=== PATIENT | female | born 1960 | race Caucasian/White ===

== ENCOUNTER → 2017-04-08 09:33 | Day surgery (SDC) | payer MEDICAID, SELFPAY ==
[2017-04-07 11:49] VITALS: BMI 49.9
[2017-04-08 09:52] LABS: Hematocrit 39.3 % (37-47); Hemoglobin 12.7 g/dl (12.0-15.0); Mean Corp Hgb Conc 32.3 g/gl (32-36); Mean Corpuscular Hgb 28.5 pg (27.0-32.0); Mean Corpuscular Volume 88.1 fL (81-99); Mean Platelet Vol. 9.6 fl (6.2-12.0); Platelet Count 257 K/mm3 (150-450); RBC Distribution Width CV 13.6 % (11.6-14.6); RBC Distribution Width SD 43.3 fl (35.1-43.9); Red Blood Count 4.46 M/mm3 (4.2-5.4); White Blood Count 9.5 K/mm3 (4.4-11.0)
[2017-04-08 09:53] LABS: Scan Indicated on CBC? Y/N NO
[2017-04-08 10:03] LABS: Anion Gap 9 (5-15); BUN 14 mg/dL (7-18); BUN/Creat Ratio 17.7 RATIO (10-20); Chloride 106 mmol/L (98-107); Creatinine, Serum 0.79 mg/dL (0.55-1.02); EST Glomerular Filtration Rate 80 mL/min (>60); Est Glom Filt Rate - Afr Amer 97 mL/min (>60); Glucose 162 mg/dL (70-110); Sodium Level 141 mmol/L (136-145)
--- NOTE | 2017-04-08 13:14 | OP.PCM_ITS ---
Problem List (1) S/P insertion of IVC (inferior vena caval) filter Status: Acute Report of Operation Date of Procedure: 04/08/17 Pre-Operative Diagnosis: Indwelling inferior vena cava Tulip filter Post-Operative Diagnosis: Non-retrievable inferior vena cava Tulip filter. Normal inferior venacavogram Surgery/Procedure Performed:: Inferior venacavogram with attempt at inferior vena cava filter removal. Attempted balloon angioplasty of inferior vena cava filter Description of Surgical Findings:: Timeout and informed consent was obtained. 57-year-old female was taken to the special procedures lab. She was placed upon the table. The right neck was sterilely prepped and draped. She received 50 mcg of fentanyl 1 mg of Versed is intravenous sedation. The right neck was sterilely prepped and draped. Under ultrasound guidance percent lidocaine was instilled. Then a micropuncture needle was inserted micropuncture wire inserted micropuncture sheath inserted 035 J-wire was inserted 5 Moldovan short sheath was inserted and 035 J-wire was used to place a 5 Moldovan universal flush catheter in the right common iliac. Using contrast and inferior venacavogram was obtained. This demonstrates a widely patent inferior vena cava. The tulip filter unfortunately appeared to be tilted. Based upon the inferior venacavogram is concerned that the hook was within the sidewall of the vessel. Over the J-wire the 5 Moldovan sheath was removed. An 11 Moldovan reached retrieval sheath was placed. Multiple attempts were utilized using right angle snares triple snares to retrieve the filter. I attempted to utilize a 5 Moldovan Kumpe cath to get a Glidewire alongside the edge of the filter and we utilized 12 mm Laurel balloons and millimeter Powerflex balloon. Despite multiple different attempts did not appear that the filter could be engaged in a fashion to release it from the sidewall. Further attempts with stairs suggested that the wires continuously bounced off the apex hook suggesting ingrowth. The patient became uncomfortable from lying on her back complaining of leg pain. At this point rather than pursuing more aggressive attempts at filter removal I have elected to leave the filter in place. The patient will be given future option to return to a tertiary center for attempt at removal with a Holter looping technique or biting forceps but I did not feel comfortable with those maneuvers today as the patient already been on the table for period of time Impression Normal inferior venacavogram with tilted tulip filter Failure of retrieval Lino Ruiz M.D., F.A.C.S.
== END ==
PROVIDERS: Family Provider Internal Medicine; PCP Internal Medicine; Visit Provider Surgery
DX: Z95.828 Presence of other vascular implants and grafts (principal); E11.9 Type 2 diabetes mellitus without complications; E78.5 Hyperlipidemia, unspecified; I10 Essential (primary) hypertension; D50.9 Iron deficiency anemia, unspecified; E66.01 Morbid (severe) obesity due to excess calories; Z68.43 Body mass index [BMI] 50.0-59.9, adult; Z85.038 Personal history of other malignant neoplasm of large intestine; Z86.711 Personal history of pulmonary embolism; Z79.82 Long term (current) use of aspirin; Z79.4 Long term (current) use of insulin; Z79.899 Other long term (current) drug therapy
CPT/HCPCS: 36415; 37193; 76937; 80048; 85027; 99152; 99153; C1773; J7040; Q9967; C1725; C1769; J2405

== ENCOUNTER 2018-08-04 13:16 | Emergency (ER) | payer MEDICAID, SELFPAY ==
[2018-08-04 13:17] VITALS: BP 140/75; PULSE 78; RESP 16; TEMP 36.8; O2SAT 96; BMI 54.7
--- NOTE | 2018-08-04 13:57 | CT_ITS ---
STUDY: CT BRAIN WITHOUT CONTRAST REASON FOR EXAM: Female, 58 years old. Right-sided head trauma following a fall. History of colon cancer. RADIATION DOSAGE (If Supplied By Facility): CTDIvol = ( 44.99 ) mGy, DLP = ( 762.36 ) mGycm TECHNIQUE: Transaxial CT imaging of the brain was performed without administration of intravenous contrast material. Individualized dose optimization techniques were used for this CT. COMPARISON: No relevant priors. FINDINGS: Moderate sized scalp hematoma overlying the right frontoparietal bone. There is hyperostosis frontalis internus. Normal size ventricles and extra-axial spaces for the patient's age. Normal white matter tracts of the cerebral hemispheres. There are small punctate calcifications of the basal ganglia which are seen in the aging brain as a normal variant. Normal brainstem. Normal cerebellum. There is no intracranial hemorrhage. There are no findings of an acute ischemic infarction. Atherosclerotic calcification of the cavernous portions of the internal carotid arteries. Minimal mucosal thickening of the maxillary sinuses bilaterally. CT/Brain/Head without Contrast IMPRESSION: Moderate sized scalp hematoma overlying the right frontoparietal bone. Electronically Signed: Ariel Quinteros, at 14:26 EDT , Service support ,
--- NOTE | 2018-08-04 15:24 | ED.VISSUMM ---
- ER Visit Summary Date of Service: 08/04/18 Chief Complaint: Head injury History of Present Illness: The patient is a 58 F who lost her balance and fell on the . She had intermittent headaches to continue. Today she had some bruising around her right eye. She did not lose consciousness. She has no vision changes or vomiting. Physical Examination: Vital signs unremarkable. Patient sitting upright in bed no acute distress. Head and neck examination reveals healing abrasion to the right frontal scalp. She is mild ecchymosis noted to the lateral canthus of the right eye. No orbital bone tenderness. Extraocular movements are fully intact. No C-spine tenderness. Heart is regular rate and rhythm. Normal sounds are clear. Neuro exam is unremarkable. Test Results: CT scan of the head shows moderate scalp hematoma overlying the right frontoparietal bone. Emergency Department Course and Treatment: Test results discussed with patient and at bedside. She will continue to use Tylenol for headache. Treatment Plan: [] Disposition: Discharge Impression: Closed head injury status post fall This note was generated with [employer] dictation software. It may contain incorrect words, spelling, and punctuation that were not noted in review of the chart prior to signing ED Disposition - Plan for ED Patient: Disposition: Home or Assisted Living Instructions: ED Head Injury Closed Referrals: Radha Alcala MD [Primary Care Provider] - 1 Week if not improving
[2018-08-04 15:36] VITALS: PULSE 79; RESP 16
== END 2018-08-04 15:37 | disposition home or self-care (01) ==
PROVIDERS: Emergency Provider Emergency Medicine; Family Provider Internal Medicine; PCP Internal Medicine
DX: S09.90XA Unspecified injury of head, initial encounter (principal); E11.9 Type 2 diabetes mellitus without complications; I10 Essential (primary) hypertension; Z85.038 Personal history of other malignant neoplasm of large intestine; Z79.4 Long term (current) use of insulin; Z79.82 Long term (current) use of aspirin; Z79.899 Other long term (current) drug therapy; W18.30XA Fall on same level, unspecified, initial encounter; Y93.89 Activity, other specified; Y92.89 Other specified places as the place of occurrence of the external cause; Y99.8 Other external cause status
CPT/HCPCS: 70450; 99282

== ENCOUNTER → 2020-05-09 05:12 | Outpatient (CLI) | payer MEDICAID, SELFPAY | PROVIDERS: PCP Internal Medicine; Visit Provider Surgery | DX: R69 Illness, unspecified (principal) ==

== ENCOUNTER 2020-05-10 06:02 | Day surgery (SDC) | payer MEDICAID, SELFPAY ==
[2020-05-10] VITALS (7 sets, daily range): BP systolic 90–142; BP diastolic 46–111; PULSE 63–71; RESP 16; TEMP 36.1–36.5; O2SAT 88–100; BMI 44.1
--- NOTE | 2020-05-10 | COLBX_PTH ---
PATIENT: AISHA MA LOC: EN U#:[id number] AGE/SX: 60/F ROOM: RE05/10/[address]: Dr. Lino Ruiz MD : 1960 BED: DIS: 05/10/2020 SPEC #: [id number] RECD: 05/10/20 12:36 STATUS: JOHN HAWLEY #: [id number] SARAH: 05/10/20 00:[address]: Lino Ruiz DEPT: SURGICAL PATHOLOGY RECD BY: Josh Bliss ENTERED: 05/10/20 12:36 SP TYPE: COLON BX OTHR DR: Dr. Radha Alcala MD Tissues: A - Ileum, NOS B - Transverse colon Procedures: Surgery Specimen Level IV HEADER OPERATION: Colonoscopy - open access (MOD) PRE-OP DIAGNOSIS: Screening TISSUE SUBMITTED: A - Polyp at ileocecal anastomosis hot snare, B - Biopsy of proximal transverse polyp MICROSCOPIC DIAGNOSIS A. Polyp at ileocecal anastomosis, biopsy: Consistent with fragments of inflammatory polyp. B. Proximal transverse colon polyp, biopsy: Fragments of colonic mucosa, no pathologic diagnosis. See comment. Sunny 05/13/2020 COMMENT Please make reference to previous specimen ([id number]) right colon, hemicolectomy with diagnosis of invasive poorly differentiated adenocarcinoma. MICROSCOPIC DESCRIPTION Slides are reviewed. GROSS DESCRIPTION A - Received in fixative is one container labeled with the patient's name and designated polyp at ileocecal anastomosis. The specimen consists of multiple irregular fragments of light olvera soft tissue that in aggregate measure 1 x 1 x 0.4 cm. The specimen is totally submitted in one cassette. B - Received in fixative is one container labeled with the patient's name and designated biopsy of proximal transverse polyp. The specimen consists of multiple irregular fragments of light olvera soft tissue that in aggregate measure 0.6 x 0.2 x 0.1 cm. The specimen is totally submitted in one cassette. / ANDERSON:dimitry 05/10/20 TC:5 [facility]: [id number] x2
--- NOTE | 2020-05-10 06:14 | PCM.HP.STD ---
Problem List (1) History of colon cancer Status: Chronic History of Present Illness Date of Admission: 05/10/20 The patient is a 60 year old F who has a personal history of right colon cancer status post right colectomy in 1998. Her most recent colonoscopy was 2016. She denies chest pain shortness of breath unexpected weight loss. No abdominal pain. She denies bright red blood per rectum or melena. In February her had COVID-19. He is still resolving as he also has COPD. She states that she did not contract it. She otherwise feels well. She does have a previous history of pulmonary embolism. She has an indwelling inferior vena cava filter. It is a Tulip filter and in 2018 I was unable to retrieve it. She was recommended to have tertiary referral. Past Medical History Past Medical History (Chronic Problems): Chronic Problems (Last Reviewed 03/22/17 @ 13:07 by Shanti Fuentes) Septic arthritis of wrist, right (Chronic) antibiotics through 09/17/16 Chronic pain (Chronic) due to osteoarthritis Iron deficiency anemia (Chronic) History of colon cancer (Chronic) Morbid obesity with BMI of 50.0-59.9, adult (Chronic) Diabetes mellitus, type II (Chronic) Hyperlipidemia (Chronic) Hypertension (Chronic) Medical History: Medical History (Last Reviewed 03/22/17 @ 13:07 by Shanti Fuentes) Hypokalemia (Acute) E87.6 etiology unknown Hypomagnesemia (Acute) E83.42 etiology unknown Septic arthritis of wrist, right (Chronic) M00.9 antibiotics through 09/17/16 Chronic pain (Chronic) G89.29 due to osteoarthritis Iron deficiency anemia (Chronic) D50.9 Elevated LFTs (Acute) R94.5 Acute kidney injury (Acute) N17.9 History of colon cancer (Chronic) Z85.038 Morbid obesity with BMI of 50.0-59.9, adult (Chronic) E66.01, Z68.43 Diabetes mellitus, type II (Chronic) E11.9 Hyperlipidemia (Chronic) E78.5 Hypertension (Chronic) I10 Pulmonary embolism I26.99 Allergies adhesive tape Allergy (Mild, Verified 05/10/20 06:11) rash Home Medications: Ambulatory Orders Medication Instructions Recorded Acetaminophen [Tylenol] 650 mg PO Q6H PRN 10/05/16 Aspirin [Aspirin, Baby] 81 mg PO DAILY 10/05/16 Cyanocobalamin (Vitamin B-12) 2,000 mcg PO DAILY 10/05/16 [Vitamin B12] Duloxetine HCl 60 mg PO DAILY 10/05/16 Ergocalciferol [Vitamin D] 50,000 unit PO Q7D 10/05/16 Ferrous Sulfate 325 mg PO BIDCM 10/05/16 Multivitamin [Daily Multiple 1 ea PO DAILY 10/05/16 Vitamin] Ondansetron HCl [Zofran] 4 mg PO Q8H PRN 10/05/16 Potassium Chloride 20 meq PO BID 10/05/16 Sennosides/Docusate Sodium 1 ea PO BID 10/05/16 [Senna-Docusate Sodium Tablet] metFORMIN (XR) [Glucophage Xr] 500 mg PO BID 10/05/16 hydrochlorothiazide 12.5 mg tablet 12.5 mg PO QDAY 03/22/17 Famotidine [Pepcid] 20 mg PO BID 05/03/20 Surgical History: Surgical History (Last Updated 03/22/17 @ 13:07 by Shanti Fuentes) S/P insertion of IVC (inferior vena caval) filter (Acute) Z95.828 S/P cholecystectomy (Acute) Z90.49 S/P colonoscopy (Acute) Z98.890 History of incisional hernia repair (Acute) Z98.890, Z87.19 S/P colectomy (Acute) Z90.49 S/P repair of ventral hernia (Acute) Z98.890, Z87.19 Status post knee replacement (Acute) Z96.659 Surgical History: cholecystectomy, - - Partial colectomy. 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 Smoking Status: Never smoker Tobacco Use: Non-smoker - *Family History Maternal Family History: Family History (Last Updated 03/22/17 @ 13:10 by Shanti Fuentes) Mother Diabetes CAD (coronary artery disease) Father Heart disease Diabetes History Items: Heart Disease, Hypertension Paternal Family History: Family History (Last Updated 03/22/17 @ 13:10 by Shanti Fuentes) Mother Diabetes CAD (coronary artery disease) Father Heart disease Diabetes History Items: Heart Disease, Hypertension Review of Systems Constitutional: Denies: Fever HEENT: Denies: Difficulty Swallowing Cardiovascular: Denies: Chest Pain Respiratory: Denies: Cough, Shortness of Breath Gastrointestinal: Denies: Abdominal Pain, Melena Endocrine: Denies: Change in Body Habitus VTE Information - Inpt Only VTE Present on Admission: No - Physical Exam Vitals/I&O's: Body Mass Index (BMI) 54.7 Finger Stick Blood Glucose 203 General: Alert, Oriented x3, Cooperative, No apparent distress HEENT: Atraumatic Oral: Moist Mucosa Lungs: Clear to auscultation, Normal air movement Cardiovascular: Regular rate, Regular Rhythm Abdomen: Soft, Non Tender Extremities: No Calf Tenderness Psych/Mental Status: Normal Affect Microbiology Past 72 Hours 05/09/20 10:30 Interface Orders SARS-CoV-2 Antigen (Rapid) - Final Assessment/Plan All Active Problems (Last Reviewed 03/22/17 @ 13:07 by Shanti Fuentes) S/P insertion of IVC (inferior vena caval) filter (Acute) S/P cholecystectomy (Acute) S/P colonoscopy (Acute) History of incisional hernia repair (Acute) S/P colectomy (Acute) S/P repair of ventral hernia (Acute) Status post knee replacement (Acute) Hypokalemia (Acute) Hypomagnesemia (Acute) Elevated LFTs (Acute) Right hand pain (Acute) Acute kidney injury (Acute) Sepsis (Acute) Plan to proceed with a colonoscopy with possible biopsy or polypectomy as indicated. She is aware of the technique, benefit, risk, alternatives. She has had an opportunity to ask and have questions answered. She presents via open access today. We will proceed as noted. Lino Ruiz M.D., F.A.C.S. Procedure Criteria Procedure Type: Elective COVID Risk Discussion: The surgeon/proceduralist and patient have discussed in detail the risk of exposure to and/or potential harm posed by the COVID-19 virus with having a surgery/procedure at this time versus the risk of delaying the surgery/procedure. It is not possible to know either the risk of delaying the surgery or procedure or chance of getting an infection with perfect accuracy, but a joint decision was made between the patient and the surgeon/proceduralist to proceed at this time with the scheduled surgery/procedure as indicated on the consent form.
[2020-05-10] MEDS: Lactated Ringers 1,000 ML 100 ML IV (06:29)
[2020-05-10 06:35] LABS: Bedside Glucose 125 mg/dL (70-110)
--- NOTE | 2020-05-10 07:27 | OP.CCLET_ITS ---
05/10/2020 Radha Alcala [address] [id number] Re : Colonoscopy procedure for Day Lo Dear Dr. Alcala This procedure was performed on Sunday, May 10, 2020. My impressions and recommendations are as follows: Impressions : - Hemorrhoids found on perianal exam. - One polyp at the anastomosis, removed with a hot snare. Resected and retrieved. - One 5 mm polyp in the proximal transverse colon, removed with a cold biopsy forceps. Resected and retrieved. - Diverticulosis in the sigmoid colon. Recommendations : - Discharge patient to home. - Resume previous diet. - Continue present medications. - Repeat colonoscopy in 5 years for surveillance based on pathology results. - Telephone my office for pathology results in 1 week. My findings are described in the full procedure note, which is enclosed. If I can be of further assistance, please feel free to contact me at Doctor phone number(s): Work: . Sincerely, Lino Ruiz MD 05/10/2020 7:26:48 AM This report has been signed electronically.
--- NOTE | 2020-05-10 07:27 | OP.COLON_ITS ---
Patient Name: Day Lo Procedure Date: 05/10/2020 6:56 AM Date of : 1960 Age: 60 Procedure: Colonoscopy Indications: High risk colon cancer surveillance: Personal history of colon cancer Providers: Lino Ruiz MD Referring MD: Radha Alcala Medicines: Midazolam 3.5 mg IV, Meperidine 100 mg IV Patient Profile: Last Colonoscopy: more than 3 years ago. Complications: No immediate complications. Procedure: Pre-Anesthesia Assessment: - Prior to the procedure, a History and Physical was performed, and patient medications and allergies were reviewed. The patient's tolerance of previous anesthesia was also reviewed. The risks and benefits of the procedure and the sedation options and risks were discussed with the patient. All questions were answered, and informed consent was obtained. Prior Anticoagulants: The patient has taken aspirin. ASA Grade Assessment: II - A patient with mild systemic disease. After reviewing the risks and benefits, the patient was deemed in satisfactory condition to undergo the procedure. After I obtained informed consent, the scope was passed under direct vision. Throughout the procedure, the patient's blood pressure, pulse, and oxygen saturations were monitored continuously. The colonoscope was introduced through the anus and advanced to the ileocolonic anastomosis. The colonoscopy was performed without difficulty. The patient tolerated the procedure well. The quality of the bowel preparation was good. Ileocolonic anastomosis were photographed. Moderate Sedation: Moderate (conscious) sedation was personally administered by the endoscopist. The following parameters were monitored: oxygen saturation, heart rate, blood pressure, and response to care. Total physician intraservice time was 18 minutes. Scope In: 7:03:40 AM Scope Withdrawal Time 0 hours 14 minutes 32 seconds Scope Out: 7:20:59 AM Total Procedure Duration Time 0 hours 17 minutes 19 seconds Findings: Hemorrhoids were found on perianal exam. A polyp was found in the anastomosis. The polyp was sessile. The polyp was removed with a hot snare. Resection and retrieval were complete. A 5 mm polyp was found in the proximal transverse colon. The polyp was sessile. The polyp was removed with a cold biopsy forceps. Resection and retrieval were complete. Scattered diverticula were found in the sigmoid colon. Impression: - Hemorrhoids found on perianal exam. - One polyp at the anastomosis, removed with a hot snare. Resected and retrieved. - One 5 mm polyp in the proximal transverse colon, removed with a cold biopsy forceps. Resected and retrieved. - Diverticulosis in the sigmoid colon. Recommendation: - Discharge patient to home. - Resume previous diet. - Continue present medications. - Repeat colonoscopy in 5 years for surveillance based on pathology results. - Telephone my office for pathology results in 1 week. Procedure Code(s): --- Professional --- 77867, Colonoscopy, flexible; with removal of tumor(s), polyp(s), or other lesion(s) by snare technique 91322, 59, Colonoscopy, flexible; with biopsy, single or multiple 83857, 59, Moderate sedation services provided by the same physician or other qualified health healthcare network pricing consultant performing the diagnostic or therapeutic service that the sedation supports, requiring the presence of an independent trained observer to assist in the monitoring of the patient's level of consciousness and physiological status; initial 15 minutes of intraservice time, patient age 5 years or older Diagnosis Code(s): --- Professional --- Z85.038, Personal history of other malignant neoplasm of large intestine K64.9, Unspecified hemorrhoids D12.6, Benign neoplasm of colon, unspecified D12.3, Benign neoplasm of transverse colon (hepatic flexure or splenic flexure) K57.30, Diverticulosis of large intestine without perforation or abscess without bleeding CPT copyright 2017 [employer]. All rights reserved. The codes documented in this report are preliminary and upon drawing tender review may be revised to meet current compliance requirements. Lino Ruiz MD 05/10/2020 7:26:48 AM This report has been signed electronically. Number of Addenda: 0 Note Initiated On: 05/10/2020 6:56 AM
== END 2020-05-10 07:59 | disposition home or self-care (01) ==
LOC: EN 06:03 → AC 06:04
PROVIDERS: PCP Internal Medicine; Referring Provider Internal Medicine; Visit Provider Surgery
PROC: 0DJD8ZZ Inspection of Lower Intestinal Tract, Via Natural or Artificial Opening Endoscopic (ICD-10-PCS; CPT 45378; principal; 2020-05-10 06:55)
DX: K57.30 Diverticulosis of large intestine without perforation or abscess without bleeding (principal); K63.5 Polyp of colon; K64.9 Unspecified hemorrhoids; Z85.038 Personal history of other malignant neoplasm of large intestine; M19.90 Unspecified osteoarthritis, unspecified site; E11.9 Type 2 diabetes mellitus without complications; E66.01 Morbid (severe) obesity due to excess calories; E78.5 Hyperlipidemia, unspecified; I10 Essential (primary) hypertension; Z68.43 Body mass index [BMI] 50.0-59.9, adult; Z90.49 Acquired absence of other specified parts of digestive tract; Z79.84 Long term (current) use of oral hypoglycemic drugs; Z79.899 Other long term (current) drug therapy; Z86.711 Personal history of pulmonary embolism; Z20.822 Contact with and (suspected) exposure to COVID-19
CPT/HCPCS: 45380; 82962; 87426; 88305; 99152; 99153; C9803; J7120

== ENCOUNTER 2020-05-14 18:12 | Observation (INO) | payer MEDICAID, SELFPAY ==
[2020-05-14 13:28] VITALS: BMI 44.1
[2020-05-14 14:46] LABS: Absolute Lymphocyte Count 2.28 X10^3/uL (0.83-4.51); Basophil# 0.04 X10^3/uL; Basophil% 0.4 % (0-1); Eosinophil# 0.14 X10^3/uL; Eosinophils% 1.6 % (0-5); Hematocrit 32.3 % (37-47); Hemoglobin 10.4 g/dL (12.0-15.0); Lymphocyte # 2.28 X10^3/ul (4.0); Lymphocyte % 25.2 % (19-41); Mean Corp Hgb Conc 32.2 g/dL (32-36); Mean Corpuscular Hgb 28.3 pg (27.0-32.0); Mean Platelet Vol. 9.5 fl (6.2-12.0); Monocyte# 0.49 X10^3/uL; Monocyte% 5.4 % (0-10); NRBC Flagged by Analyzer 0 % (0-5); Neutrophil # 6.03 X10^3/uL (2.7-7.7); Neutrophil % 66.8 % (47-70); Platelet Count 268 K/mm3 (150-450); RBC Distribution Width CV 14.3 % (11.6-14.6); RBC Distribution Width SD 45.6 fl (35.1-43.9); Red Blood Count 3.67 M/mm3 (4.2-5.4)
--- NOTE | 2020-05-14 17:02 | PCM.HP.BLA ---
Problem List (1) Lower GI bleed Status: Acute History and Physical Date of Admission: 05/14/20 [facility] [address] [place] [address] OFFICE VISIT Date of Service: 05/14/20 MR#:[id number] Name: AISHA OTT Rep #:[id number] : 1960 Provider: SHARYN Dave Age/Sex: 60/F Location:[facility] Status: Signed Intake Vital Signs 05/14/20 Weight: 264 lb 05/14/20 BP 108/70 05/14/20 Blood Pressure Location Rt brachial 05/14/20 Position Sitting 05/14/20 Respiration 18 05/14/20 Pulse 81 05/14/20 Pulse Source Monitor 05/14/20 Pulse Oximetry (%) 100 05/14/20 Oxygen Delivery Method room air Intake Visit Reasons: C-Scope -RC 05/10 New rectal bleeding & dizziness Chief Complaint: rectal bleeding s/p c-scope Database Administration Associate Required: No Is patient in pain?: No Allergies adhesive tape Allergy (Mild, Verified 05/14/20 15:11) rash Medications Acetaminophen [Tylenol] 650 mg PO Q6H PRN 10/05/16 [History Confirmed 05/14/20] Aspirin [Aspirin, Baby] 81 mg PO DAILY 10/05/16 [History Confirmed 05/14/20] Cyanocobalamin (Vitamin B-12) [Vitamin B12] 2,000 mcg PO DAILY 10/05/16 [History Confirmed 05/14/20] Duloxetine HCl 60 mg PO DAILY 10/05/16 [History Confirmed 05/14/20] Ergocalciferol [Vitamin D] 50,000 unit PO Q7D 10/05/16 [History Confirmed 05/14/20] Ferrous Sulfate 325 mg PO BIDCM 10/05/16 [History Confirmed 05/14/20] Multivitamin [Daily Multiple Vitamin] 1 ea PO DAILY 10/05/16 [History Confirmed 05/14/20] Ondansetron HCl [Zofran] 4 mg PO Q8H PRN 10/05/16 [History Confirmed 05/14/20] Potassium Chloride 20 meq PO BID 10/05/16 [History Confirmed 05/14/20] Sennosides/Docusate Sodium [Senna-Docusate Sodium Tablet] 1 ea PO BID 10/05/16 [History Confirmed 05/14/20] metFORMIN (XR) [Glucophage Xr] 500 mg PO BID 10/05/16 [History Confirmed 05/14/20] hydrochlorothiazide 12.5 mg tablet 12.5 mg PO QDAY 03/22/17 [History Confirmed 05/14/20] Famotidine [Pepcid] 20 mg PO BID 05/03/20 [History Confirmed 05/14/20] [facility] Medical History Hypokalemia (Acute) Hypomagnesemia (Acute) Septic arthritis of wrist, right (Chronic) Chronic pain (Chronic) Iron deficiency anemia (Chronic) Elevated LFTs (Acute) Acute kidney injury (Acute) History of colon cancer (Chronic) Morbid obesity with BMI of 50.0-59.9, adult (Chronic) Diabetes mellitus, type II (Chronic) Hyperlipidemia (Chronic) Hypertension (Chronic) Pulmonary embolism (Acute) Surgical History S/P insertion of IVC (inferior vena caval) filter (Acute) S/P cholecystectomy (Acute) S/P colonoscopy (Acute) History of incisional hernia repair (Acute) S/P colectomy (Acute) S/P repair of ventral hernia (Acute) Status post knee replacement (Acute) Family History Mother Diabetes CAD (coronary artery disease) Father Heart disease Diabetes Social History (Updated 05/14/20 @ 16:44 by Anna ELDRIDGE, PA-C) Smoking Status: Never smoker alcohol intake: never HPI Surgical H&P: Yes HPI: AISHA OTT, is a 60 F who presents to the office today for rectal bleeding status post colonoscopy. Patient had a colonoscopy with Dr. Ruiz on Wednesday05/10/20. Patient had a polyp removed with hot snare at ileocolonic anastomosis which was inflamed. She was also noted to have a polyp in the proximal transverse colon. Removed with a cold biopsy forceps. There were internal hemorrhoids noted. Patient stated over the weekend she was having normal bowel movements. She noted this morning bleeding when she tried to have a bowel movement. Patient stated she felt the urge to have a bowel movement and each time there were blood and clots in the toilet. She is unsure if there were ever any stool output. She noted a strong odor from the bleeding in the toilet. She notes usually having looser stools secondary to taking Miralax and a stool softener. She noted feeling dizzy this morning and fatigued. She tried to eat which did not help. She contacted our office for further recommendations. Pathology from the polyps returned benign. CBC was obtained and notable for Hgb 10.4, Hct 32.3, and Plt 268 ROS General General: Yes weight change and colon cancer; no appetite, fatigue, breast cancer or weakness HEENT HEENT: No difficulty swallowing, eye injury, eye surgery, swollen glands or hoarseness Endo Endocrine: Yes diabetes mellitus; no thyroid disease, thyroid cancer, Hair loss, heat intolerance or cold intolerance Skin Skin: No rash or changing moles Breast Breast: No left breast lump, right breast lump, nipple discharge, breast pain, abnormal mammogram, abnormal US or breast enlargement Musc Musculoskeletal: Yes back problems, arthritis and joint pain; no rheumatoid arthritis or gout Cardio Cardiovascular: Yes high blood pressure; no murmur, pacemaker, heart disease, atrial fibrillation, heart attack, heart stent, palpitations, shortness of breat with exertion or chest pain Psych Psychiatric: No depression, anxiety or hearing voices Resp Respiratory: No shortness of breath, No sleep apnea, No cough, No COPD, No asthma, No emphysema, No wheezing Gastro Gastrointestinal: No abdominal pain, No nausea or vomiting, No diarrhea, No constipation, No blood in stool, No acid reflux, No hemorrhoids, No ulcers, No gallbladder problem, No black,tarry stools Remigio Hematologic: No blood thinners, No blood disorders, Yes bleeding, No anemia, Yes blood clots Neuro Neurologic: No system reviewed and no additional complaints, except as docu, No as per HPI, No abnormal walking, No abnormal hearing, No abnormal movements, No abnormal speech, No behavioral changes, No burning sensations, No confusion, No seizure-like activity, No unsteadiness, No dizziness, No localized weakness, No frequent falls, No headache(s), No lack of coordination, No loss of vision, No memory loss, No numbness, No other visual disturbances, No radiating pain, No restless legs, No sensory deficit, No fainting, No tingling, No tremor(s), No weakness, No other Exam Const General: cooperative, healthy appearing, comfortable, no acute distress HENMT Head: normal to inspection Eyes General: appearance normal, both eyes and all related structures Neck Neck: normal visual inspection Neck mass: No Chest Breast Palpation: No nipple discharge Resp Effort & Inspection: normal respiratory effort Auscultation: clear to auscultation bilaterally Cardio Rate: regular rate Rhythm: regular rhythm Heart Sounds: no murmurs GI Inspection: normal to inspection, obesity Rectal Exam: visual inspection normal (small amount of darker red blood noted internally), hemorrhoids Skin General: no rashes or lesions noted Neuro General: no focal motor deficits, CN's II-XI intact bilaterally Extrem General: normal to inspection Psych Appearance: grossly normal Affect: normal affect Assessment & Plan Problems 1. Lower GI bleed K92.2 Plan: Dr. Ruiz has also evaluated this patient. Patient will be direct admitted to PCU. Patient will be bowel prepped with Golytely. NPO after midnight. CBC and BMP tomorrow morning at 0500. Colonoscopy with MAC scheduled for 0630 tomorrow morning with possible epinephrine injection or clip placement pending findings. Procedure details, risks and benefits have been explained. Patient and her have had the opportunity to ask and have questions answered. Patient verbally understands and agrees with the plan. She will go home to gather her things and return for admission as patient lives in [place]. It is of note, patient was COVID tested on 05/09/20 for previous colonoscopy procedure. Result was negative. Coding Level of Care Code Off vis,est,level 4 Diagnoses Lower GI bleed K92.2 05/14/20 1644 <Electronically signed by Anna ELDRIDGE PA-C> Date Anna ELDRIDGE PA-C OBSV E&M: 18473 Observ/hosp same date L1 - Charge placed for patient as an outpatient in office for admission
[2020-05-14 17:58] VITALS: BMI 44.9
[2020-05-14 18:01] VITALS: BP 125/63; PULSE 83; RESP 18; TEMP 36.6; O2SAT 100
[2020-05-14 18:07] VITALS: BMI 44.9
[2020-05-14 18:14] VITALS: PULSE 65
[2020-05-14] MEDS: 0.9% Saline Lock 10 ML Syringe IV (18:38)
[2020-05-14 18:52] LABS: Absolute Lymphocyte Count 1.75 X10^3/uL (0.83-4.51); Absolute Neutrophil Count 5.7 X10^3/uL (2.0-7.7); Basophil# 0.02 X10^3/uL; Basophil% 0.3 % (0-1); Eosinophil# 0.08 X10^3/uL; Hematocrit 29.4 % (37-47); Hemoglobin 9.3 g/dL (12.0-15.0); Lymphocyte # 1.75 X10^3/ul (4.0); Lymphocyte % 21.9 % (19-41); Mean Corp Hgb Conc 31.6 g/dL (32-36); Mean Corpuscular Hgb 28.3 pg (27.0-32.0); Mean Corpuscular Volume 89.4 fL (81-99); Mean Platelet Vol. 9.6 fl (6.2-12.0); NRBC Flagged by Analyzer 0 % (0-5); Neutrophil % 71.3 % (47-70); Platelet Count 247 K/mm3 (150-450); RBC Distribution Width CV 14.3 % (11.6-14.6); Red Blood Count 3.29 M/mm3 (4.2-5.4)
[2020-05-14] MEDS: 0.9% Normal Saline 1,000 ML 50 ML IV (18:52)
[2020-05-14 19:00] VITALS: PULSE 67
[2020-05-14 19:04] LABS: Anion Gap 5 (5-15); BUN 22 mg/dL (7-18); BUN/Creat Ratio 30.3 RATIO (10-20); Calcium,Total 8.4 mg/dL (8.5-10.1); Chloride 112 mmol/L (98-107); Creatinine, Serum 0.73 mg/dL (0.55-1.02); EST Glomerular Filtration Rate 87 mL/min (>60); Est Glom Filt Rate - Afr Amer 105 mL/min (>60); Estimated Creatinine Clearance 73.74 ml/min; Glucose 165 mg/dL (74-106); Potassium 3.8 mmol/L (3.5-5.1); Sodium Level 143 mmol/L (136-145)
[2020-05-14] MEDS: Electrolyte Solution/Peg's 4000 ML PO (19:41)
[2020-05-14 21:08] VITALS: BMI 44.9
[2020-05-14 22:00] VITALS: O2SAT 100
[2020-05-14 22:44] LABS: Xtra Tube EP Lab EXTRA TUBE
[2020-05-14] MEDS: Ondansetron 4 MG/2 ML Vial IV (22:50)
[2020-05-14 23:00] VITALS: BP 103/60; PULSE 67; RESP 16; TEMP 36.5; O2SAT 100
[2020-05-14 23:05] VITALS: PULSE 67
[2020-05-14 23:05] LABS: Bedside Glucose 153 mg/dL (70-110)
[2020-05-15] VITALS (13 sets, daily range): BP systolic 94–110; BP diastolic 47–59; PULSE 63–85; RESP 16–18; TEMP 36.2–36.6; O2SAT 96–100; BMI 44.9
[2020-05-15 04:39] LABS: Absolute Lymphocyte Count 3.43 X10^3/uL (0.83-4.51); Absolute Neutrophil Count 4.1 X10^3/uL (2.0-7.7); Basophil# 0.03 X10^3/uL; Basophil% 0.4 % (0-1); Eosinophil# 0.09 X10^3/uL; Eosinophils% 1.1 % (0-5); Hematocrit 26.5 % (37-47); Hemoglobin 8.3 g/dL (12.0-15.0); Lymphocyte # 3.43 X10^3/ul (4.0); Lymphocyte % 42.2 % (19-41); Mean Corp Hgb Conc 31.3 g/dL (32-36); Mean Corpuscular Volume 89.5 fL (81-99); Mean Platelet Vol. 9.2 fl (6.2-12.0); Monocyte% 4.9 % (0-10); NRBC Flagged by Analyzer 0 % (0-5); Neutrophil # 4.14 X10^3/uL (2.7-7.7); Neutrophil % 50.9 % (47-70); Platelet Count 227 K/mm3 (150-450); RBC Distribution Width CV 14.6 % (11.6-14.6); RBC Distribution Width SD 47.1 fl (35.1-43.9); Red Blood Count 2.96 M/mm3 (4.2-5.4); White Blood Count 8.1 K/mm3 (4.4-11.0)
[2020-05-15 04:49] LABS: International Normalized Ratio 1.2; Prothrombin Time (Protime)PT. 14.2 SECONDS (11.7-14.9)
[2020-05-15 04:50] LABS: Partial Thromboplast Time 24.5 Seconds (24.1-36.2)
[2020-05-15 04:54] LABS: Anion Gap 5 (5-15); BUN 17 mg/dL (7-18); BUN/Creat Ratio 23.9 RATIO (10-20); Calcium,Total 8.3 mg/dL (8.5-10.1); Chloride 113 mmol/L (98-107); Creatinine, Serum 0.71 mg/dL (0.55-1.02); EST Glomerular Filtration Rate 89 mL/min (>60); Est Glom Filt Rate - Afr Amer 108 mL/min (>60); Estimated Creatinine Clearance 72.76 ml/min; Glucose 132 mg/dL (74-106); Potassium 3.6 mmol/L (3.5-5.1); Sodium Level 145 mmol/L (136-145)
--- NOTE | 2020-05-15 07:04 | OP.CCLET_ITS ---
05/15/2020 Radha Alcala [address] [id number] Re : Colonoscopy procedure for Day Wally Dear Dr. Alcala This procedure was performed on Friday, May 15, 2020. My impressions and recommendations are as follows: Impressions : - Preparation of the colon was poor because of bloody fluid - Hemorrhoids found on perianal exam. - Blood in the entire examined colon. - An area in the anastomosis successfully injected. - Two hemostatic clips were successfully placed at the previous polypectomy site, ileocolonic anastomotic area. - No specimens collected. Recommendations : - Return patient to [facility] for ongoing care. - Full liquid diet. - Continue present medications. - Repeat colonoscopy in 5 years for surveillance. My findings are described in the full procedure note, which is enclosed. If I can be of further assistance, please feel free to contact me at Doctor phone number(s): Work: . Sincerely, Lino Ruiz MD 05/15/2020 7:03:56 AM This report has been signed electronically.
--- NOTE | 2020-05-15 07:04 | OP.COLON_ITS ---
Patient Name: Day Lo Procedure Date: 05/15/2020 6:03 AM Date of : 1960 Age: 60 Procedure: Colonoscopy Indications: Rectal bleeding, Treatment of bleeding from polypectomy site Providers: Lino Ruiz MD Medicines: See the Anesthesia note for documentation of the administered medications Patient Profile: Last Colonoscopy: 1 week ago. Complications: No immediate complications. Procedure: Pre-Anesthesia Assessment: - Prior to the procedure, a History and Physical was performed, and patient medications and allergies were reviewed. The patient's tolerance of previous anesthesia was also reviewed. The risks and benefits of the procedure and the sedation options and risks were discussed with the patient. All questions were answered, and informed consent was obtained. Prior Anticoagulants: The patient has taken aspirin, last dose was 1 day prior to procedure. ASA Grade Assessment: III - A patient with severe systemic disease. After reviewing the risks and benefits, the patient was deemed in satisfactory condition to undergo the procedure. After I obtained informed consent, the scope was passed under direct vision. Throughout the procedure, the patient's blood pressure, pulse, and oxygen saturations were monitored continuously. The adult colonoscope was introduced through the anus and advanced to the ileocolonic anastomosis. The colonoscopy was performed without difficulty. The patient tolerated the procedure well. The quality of the bowel preparation was poor. Ileocolonic anastomosis were photographed. Scope In: 6:29:20 AM Scope Out: 6:44:02 AM Total Procedure Duration Time 0 hours 14 minutes 42 seconds Findings: Hemorrhoids were found on perianal exam. Red blood was found in the entire colon. An area at the anastomosis was successfully injected with 2 mL of a 1:10,000 solution of epinephrine for drug delivery. To stop active bleeding, two hemostatic clips were successfully placed. There was no bleeding at the end of the procedure. Impression: - Preparation of the colon was poor because of bloody fluid - Hemorrhoids found on perianal exam. - Blood in the entire examined colon. - An area in the anastomosis successfully injected. - Two hemostatic clips were successfully placed at the previous polypectomy site, ileocolonic anastomotic area. - No specimens collected. Recommendation: - Return patient to hospital [facility] for ongoing care. - Full liquid diet. - Continue present medications. - Repeat colonoscopy in 5 years for surveillance. Procedure Code(s): --- Professional --- 43706, Colonoscopy, flexible; with control of bleeding, any method Diagnosis Code(s): --- Professional --- K64.9, Unspecified hemorrhoids K92.2, Gastrointestinal hemorrhage, unspecified K62.5, Hemorrhage of anus and rectum K91.840, Postprocedural hemorrhage of a digestive system organ or structure following a digestive system procedure CPT copyright 2017 [employer]. All rights reserved. The codes documented in this report are preliminary and upon cellular equipment repairer review may be revised to meet current compliance requirements. Lino Ruiz MD 05/15/2020 7:03:56 AM This report has been signed electronically. Number of Addenda: 0 Note Initiated On: 05/15/2020 6:03 AM
--- NOTE | 2020-05-15 07:57 | PN_ITS ---
Progress Note Patient evaluated. Reviewed findings of the colonoscopy. was present in room also. Previous polypectomy site at the anastomosis appeared to be the area where the clots and blood were coming from. Dr. Ruiz injected epinephrine and placed 2 clips in the area. Discussed with patient that she may have a small amount of liquidy blood per rectum. Recommend iron supplementation twice a day as an outpatient for 3 weeks. Patient may eat rn patient services today and return to regular diet tomorrow. Start iron supplementation today. May be discharged after eating breakfast. Follow-up with our office in 1 week. Will obtain repeat CBC at that time. STROKE Vital Signs/Narrative: Vital Signs Temp Pulse Resp BP Pulse Ox 05/15/20 07:54 97.7 F L 71 18 110/48 L 96 05/15/20 07:05 69 16 106/55 L 100 05/15/20 07:00 69 16 100/55 L 100 05/15/20 06:55 66 16 102/56 L 100 05/15/20 06:50 97.6 F L 66 16 99/59 L 100 05/15/20 05:49 97.2 F L 63 16 94/56 L 97 05/15/20 04:32 97.8 F 66 16 109/57 L 96 05/15/20 04:30 96 05/15/20 04:22 97.8 F 66 16 109/57 L 96 Inpatient E&M: 05299 Subs Hosp L1 - No charge
[2020-05-15 08:01] LABS: Hemoglobin A1c 6.6 % (3.8-5.6)
[2020-05-15] MEDS: Potassium Chloride Oral Tablet 20 MEQ PO (08:05)
[2020-05-15] MEDS: hydroCHLOROthiazide 12.5mg 12.5 MG PO (08:06)
--- NOTE | 2020-05-15 08:13 | DCINST_ITS ---
Discharge Diet: Light diet - advance as tolerated Discharge Activity: Return to Normal Activity Additional Instructions: Please start to take 3 tablets daily of iron supplementation for 1 week. Allergies/Adverse Reactions: Allergies adhesive tape Allergy (Mild, Verified 05/14/20 15:11) rash Medications to take at Discharge Acetaminophen [Tylenol] 650 mg PO Q6H PRN 10/05/16 Aspirin [Aspirin, Baby] 81 mg PO DAILY 10/05/16 Cyanocobalamin (Vitamin B-12) [Vitamin B12] 2,000 mcg PO DAILY 10/05/16 Duloxetine HCl 60 mg PO DAILY 10/05/16 Ergocalciferol [Vitamin D] 50,000 unit PO Q7D 10/05/16 Multivitamin [Daily Multiple Vitamin] 1 ea PO DAILY 10/05/16 Ondansetron HCl [Zofran] 4 mg PO Q8H PRN 10/05/16 Sennosides/Docusate Sodium [Senna-Docusate Sodium Tablet] 1 ea PO BID 10/05/16 metFORMIN (XR) [Glucophage Xr] 500 mg PO BID 10/05/16 hydrochlorothiazide 12.5 mg tablet 12.5 mg PO QDAY 03/22/17 Famotidine [Pepcid] 20 mg PO BID 05/03/20 Atorvastatin Calcium [Lipitor] 20 mg PO QHS 05/14/20 Bupropion HCl [Bupropion HCl Sr] 100 mg PO BID 05/14/20 Mirabegron [Myrbetriq] 50 mg PO DAILY 05/14/20 Potassium Chloride 1 tab PO DAILY 05/14/20 Ferrous Sulfate 325 mg PO TIDCM 7 Days #0 05/15/20 Primary Care Physician: Radha Alcala MD [Primary Care Provider] - Test Results: Test results from this visit will be discussed in further detail at your follow- up appointment, if applicable. Please Follow Up With: Anna Dave, CHENTE-C - [phone] When: 1 week Proposed Discharge Date: 05/15/20
[2020-05-15 08:45] LABS: Bedside Glucose 147 mg/dL (70-110)
--- NOTE | 2020-05-15 10:10 | PHA.DC.MC ---
Pharmacy Service has performed discharge medication reconciliation and counseling for this patient. 1. FERROUS SULFATE 325MG PO TIDCM The patient's discharge medication list was reviewed for discrepancies and discrepancies were resolved. Home Medications Acetaminophen [Tylenol] 650 mg PO Q6H PRN 10/05/16 Aspirin [Aspirin, Baby] 81 mg PO DAILY 10/05/16 Cyanocobalamin (Vitamin B-12) [Vitamin B12] 2,000 mcg PO DAILY 10/05/16 Duloxetine HCl 60 mg PO DAILY 10/05/16 Ergocalciferol [Vitamin D] 50,000 unit PO Q7D 10/05/16 Multivitamin [Daily Multiple Vitamin] 1 ea PO DAILY 10/05/16 Ondansetron HCl [Zofran] 4 mg PO Q8H PRN 10/05/16 Sennosides/Docusate Sodium [Senna-Docusate Sodium Tablet] 1 ea PO BID 10/05/16 metFORMIN (XR) [Glucophage Xr] 500 mg PO BID 10/05/16 hydrochlorothiazide 12.5 mg tablet 12.5 mg PO QDAY 03/22/17 Famotidine [Pepcid] 20 mg PO BID 05/03/20 Atorvastatin Calcium [Lipitor] 20 mg PO QHS 05/14/20 Bupropion HCl [Bupropion HCl Sr] 100 mg PO BID 05/14/20 Mirabegron [Myrbetriq] 50 mg PO DAILY 05/14/20 Potassium Chloride 1 tab PO DAILY 05/14/20 Ferrous Sulfate 325 mg PO TIDCM 7 Days #0 05/15/20 The patient was counseled on the following discharge medications and changes in medications for homegoing were reviewed. The Reason for Use, instructions for use, and potential side effects were reviewed for all new medications. The patient's questions regarding all of their medications were answered. The patient was able to verbally demonstrate an understanding of their discharge medications.
[2020-05-15] MEDS: 0.9% Normal Saline (Pres. free 10 ML Vial (10:22)
[2020-05-15] MEDS: Epinephrine (1 mg/ml) 1 MG/ML VIAL (10:23)
== END 2020-05-15 09:22 | disposition home or self-care (01) ==
PROVIDERS: Anesthesiology; Physician Assistant; Admitting Provider Surgery; PCP Internal Medicine; Visit Provider Surgery
PROC: 0DJD8ZZ Inspection of Lower Intestinal Tract, Via Natural or Artificial Opening Endoscopic (ICD-10-PCS; CPT 45378; principal; 2020-05-15 06:25)
DX: K92.2 Gastrointestinal hemorrhage, unspecified (principal); E66.01 Morbid (severe) obesity due to excess calories; Z68.41 Body mass index [BMI] 40.0-44.9, adult; E78.5 Hyperlipidemia, unspecified; E11.9 Type 2 diabetes mellitus without complications; I10 Essential (primary) hypertension; D50.9 Iron deficiency anemia, unspecified; K91.840 Postprocedural hemorrhage of a digestive system organ or structure following a digestive system procedure; Z86.718 Personal history of other venous thrombosis and embolism; Z79.899 Other long term (current) drug therapy; Z79.82 Long term (current) use of aspirin; Z79.84 Long term (current) use of oral hypoglycemic drugs; Z85.038 Personal history of other malignant neoplasm of large intestine; K64.8 Other hemorrhoids
CPT/HCPCS: 45382; 36415; 80048; 82962; 83036; 85025; 85610; 85730; 86850; 86900; 86901; 86920; 86922; 96365; 96366; 96375; 99218; J7030; A4216; G0378; G0379; J2405; J3490

== ENCOUNTER → 2020-05-22 12:50 | Outpatient (CLI) | payer MEDICAID, SELFPAY ==
[2020-05-15 05:49] VITALS: BMI 44.9
[2020-05-22 13:01] LABS: Absolute Lymphocyte Count 3.19 X10^3/uL (0.83-4.51); Absolute Neutrophil Count 4.4 X10^3/uL (2.0-7.7); Basophil# 0.06 X10^3/uL; Basophil% 0.7 % (0-1); Eosinophils% 2.4 % (0-5); Hematocrit 26.3 % (37-47); Hemoglobin 8.1 g/dL (12.0-15.0); Lymphocyte # 3.19 X10^3/ul (4.0); Lymphocyte % 37.7 % (19-41); Mean Corp Hgb Conc 30.8 g/dL (32-36); Mean Corpuscular Hgb 28.2 pg (27.0-32.0); Mean Corpuscular Volume 91.6 fL (81-99); Mean Platelet Vol. 9.1 fl (6.2-12.0); Monocyte# 0.58 X10^3/uL; Monocyte% 6.8 % (0-10); NRBC Flagged by Analyzer 0 % (0-5); Neutrophil # 4.38 X10^3/uL (2.7-7.7); Neutrophil % 51.7 % (47-70); Platelet Count 353 K/mm3 (150-450); RBC Distribution Width CV 15.3 % (11.6-14.6); RBC Distribution Width SD 49.8 fl (35.1-43.9); Red Blood Count 2.87 M/mm3 (4.2-5.4); White Blood Count 8.5 K/mm3 (4.4-11.0)
== END ==
PROVIDERS: PCP Internal Medicine; Referring Provider Physician Assistant; Visit Provider Physician Assistant
DX: K92.2 Gastrointestinal hemorrhage, unspecified (principal)
CPT/HCPCS: 36415; 85025

== ENCOUNTER → 2020-06-05 12:48 | Outpatient (CLI) | payer MEDICAID, SELFPAY ==
[2020-05-15 05:49] VITALS: BMI 44.9
[2020-06-05 13:01] LABS: Hematocrit 33.9 % (37-47); Hemoglobin 10.5 g/dL (12.0-15.0); Mean Corpuscular Hgb 28.4 pg (27.0-32.0); Mean Corpuscular Volume 91.6 fL (81-99); Platelet Count 357 K/mm3 (150-450); RBC Distribution Width CV 16.2 % (11.6-14.6); White Blood Count 7.6 K/mm3 (4.4-11.0)
== END ==
PROVIDERS: PCP Internal Medicine; Referring Provider Physician Assistant; Visit Provider Physician Assistant
DX: D64.9 Anemia, unspecified (principal)
CPT/HCPCS: 36415; 85027

== ENCOUNTER 2020-07-29 14:24 | Emergency (ER) | payer MEDICAID, SELFPAY ==
[2020-05-15 05:49] VITALS: BMI 44.9
[2020-07-29 14:25] VITALS: BP 157/78; PULSE 65; TEMP 36.4; O2SAT 97; BMI 47.0
[2020-07-29 14:50] VITALS: O2SAT 97
[2020-07-29 14:52] VITALS: BP 128/66; PULSE 65; RESP 16; O2SAT 98
--- NOTE | 2020-07-29 14:54 | EKG12_ITS ---
Test Reason : COUGH Blood Pressure : / mmHG Vent. Rate : 058 BPM Atrial Rate : 058 BPM P-R Int : 174 ms QRS Dur : 082 ms QT Int : 428 ms P-R-T Axes : 052 -16 -17 degrees QTc Int : 420 ms Sinus bradycardia Otherwise normal ECG Confirmed by JARED ACOSTA, NANCI ([id number]), non linear editor GEE CEDENO ([id number]) on 07/30/2020 10:09:06 AM Referred By: JAIME Confirmed By:NANCI COLEMAN MD
--- NOTE | 2020-07-29 14:55 | EX.ED.DYSGE1 ---
HPI History of Present Illness Chief Complaint: Cough Narrative Narrative: 60-year-old female presenting with cough and shortness of breath. She states this started approximately 1 week ago and this is beginning the second week of her symptoms. Her cough is nonproductive. She denies fever. She has chest pain only when she coughs. She denies sick contacts. She did not receive a Covid vaccine. She states she has lost her sense of taste. She has a history of PE, states this does not feel similar. Recent Illness/Hospitalization: No [facility] Medical History (Updated 07/29/20 @ 17:[address] Zoila Davenport MD) Acute kidney injury Chronic pain Diabetes mellitus, type II Elevated LFTs History of colon cancer Hyperlipidemia Hypertension Hypokalemia Hypomagnesemia Iron deficiency anemia Morbid obesity with BMI of 50.0-59.9, adult Pulmonary embolism Septic arthritis of wrist, right Home Medications acetaminophen 650 mg PO Q6H PRN 10/05/16 [History Last Taken Unknown] aspirin 81 mg PO DAILY 10/05/16 [History Last Taken 05/13/20] cyanocobalamin (vitamin B-12) 2,000 mcg PO DAILY 10/05/16 [History Last Taken 05/13/20] duloxetine 60 mg PO DAILY 10/05/16 [History Last Taken 05/13/20] ergocalciferol (vitamin D2) 50,000 unit PO Q7D 10/05/16 [History Last Taken 05/07/20] metformin 500 mg PO BID 10/05/16 [History Last Taken 05/13/20] multivitamin 1 ea PO DAILY 10/05/16 [History Last Taken 05/13/20] ondansetron HCl 4 mg PO Q8H PRN 10/05/16 [History Last Taken Unknown] sennosides-docusate sodium 1 ea PO BID 10/05/16 [History Last Taken 05/13/20] hydrochlorothiazide 12.5 mg tablet 12.5 mg PO QDAY 03/22/17 [History Last Taken 05/13/20] famotidine 20 mg PO BID 05/03/20 [History Last Taken 05/13/20] atorvastatin 20 mg PO QHS 05/14/20 [History Last Taken 05/13/20] bupropion HCl 100 mg PO BID 05/14/20 [History Last Taken 05/13/20] mirabegron 50 mg PO DAILY 05/14/20 [History Last Taken 05/13/20] potassium chloride 1 tab PO DAILY 05/14/20 [History Last Taken 05/13/20] ferrous sulfate 325 mg (65 mg iron) tablet 325 mg PO TIDCM 14 Days #42 tab 05/22/20 [Rx Last Taken Unknown] Allergy/AdvReac Type Severity Reaction Status Date / Time adhesive tape Allergy Mild rash Verified 05/22/20 13:03 Family History Mother Diabetes CAD (coronary artery disease) Father Heart disease Diabetes Surgical History History of incisional hernia repair S/P cholecystectomy S/P colectomy S/P colonoscopy S/P insertion of IVC (inferior vena caval) filter S/P repair of ventral hernia Status post knee replacement Social History (Updated 05/22/20 @ 15:53 by Anna ELDRIDGE, PA-C) Smoking Status: Never smoker alcohol intake: never ROS ROS ED Constitutional Constitutional ED: Denies fever(s) Eyes Eyes: Denies change in vision ENT ENT ED: Reports rhinorrhea; Denies sore throat Cardiovascular Cardiovascular: Denies chest pain or palpitations Respiratory/Chest Respiratory/Chest: Reports cough and dyspnea; Denies sputum Gastrointestinal Gastrointestinal: Denies abdominal pain, diarrhea, nausea or vomiting Genitourinary Genitourinary ED: Denies dysuria Musculoskeletal Musculoskeletal: Denies myalgias Integumentary Denies rash Neurologic Neurologic: Denies headache(s) Psychiatric Psychiatric: Denies suicidal thoughts EXAM Physical Exam Const Vital Signs: 07/29/20 14:25 07/29/20 14:50 07/29/20 14:52 Temperature 97.5 F L Temperature Source Temporal Pulse Rate 65 65 Respiratory Rate 16 Respiratory Effort Normal Respiratory Depth Normal Respiratory Pattern Normal Blood Pressure 157/78 H 128/66 H Blood Pressure Mean 104 86 Pulse Ox 97 98 Oxygen Delivery Method Room Air Room Air Room Air 07/29/20 16:25 Temperature Temperature Source Pulse Rate Respiratory Rate Respiratory Effort Respiratory Depth Respiratory Pattern Blood Pressure 118/67 Blood Pressure Mean 84 Pulse Ox Oxygen Delivery Method Positive well nourished and well developed General Appearance ED: well developed HEENT Reports normocephalic and head/scalp atraumatic Eyes PERRL and EOMs intact bilaterally Neck supple General: Negative for tenderness Chest Wall inspection of chest normal Resp normal respiratory effort and clear to auscultation bilaterally Cardio regular rate and regular rhythm GI non-tender and non-distended Palpation: soft; Negative for guarding or rebound tenderness present no CVA tenderness Extremity Extremity Narrative: Symmetric lower extremity edema Neuro oriented x3 Sensorium / Orientation: alert Psych mental status grossly normal MDM MDM MDM Narrative Medical decision making narrative: CTA chest was obtained due to elevated D-dimer. Covid negative. CTA chest is unremarkable. Her pulse ox is 99% on room air. She is resting comfortably. She will be discharged and advised to follow-up with her primary care physician. Advised return to ED for worsening complaints. Lab Data Attestation: I reviewed the patient's lab results. Labs: Laboratory Results - last 24 hr 07/29/20 07/29/20 07/29/20 15:11 15:11 15:11 WBC 7.5 RBC 4.20 Hgb 11.4 L Hct 37.0 MCV 88.1 MCH 27.1 MCHC 30.8 L RDW Std Deviation 42.6 RDW Coeff of Chris 13.2 Plt Count 272 MPV 9.9 Immature Gran % (Auto) 0.400 Neut % (Auto) 53.5 Lymph % (Auto) 36.8 [place] % (Auto) 6.1 Eos % (Auto) 2.5 Baso % (Auto) 0.7 Absolute Neuts (auto) 4.0 Absolute Lymphs (auto) 2.77 Nucleated RBC % 0 D-Dimer Quant (PE/DVT) Cancelled Sodium Cancelled Potassium Cancelled Chloride Cancelled Carbon Dioxide Cancelled Anion Gap Cancelled BUN Cancelled Creatinine Cancelled Estim Creat Clear Calc Cancelled Est GFR (MDRD) Af Amer Cancelled Est GFR (MDRD) Non-Af Cancelled BUN/Creatinine Ratio Cancelled Glucose Cancelled Calcium Cancelled Troponin I Cancelled 07/29/20 07/29/20 15:40 15:40 WBC RBC Hgb Hct MCV MCH MCHC RDW Std Deviation RDW Coeff of Chris Plt Count MPV Immature Gran % (Auto) Neut % (Auto) Lymph % (Auto) [place] % (Auto) Eos % (Auto) Baso % (Auto) Absolute Neuts (auto) Absolute Lymphs (auto) Nucleated RBC % D-Dimer Quant (PE/DVT) 1.16 H* Sodium 141 Potassium 3.9 Chloride 111 H Carbon Dioxide 27.0 Anion Gap 3 L BUN 15 Creatinine 0.69 Estim Creat Clear Calc 78.02 Est GFR (MDRD) Af Amer 112 Est GFR (MDRD) Non-Af 93 BUN/Creatinine Ratio 21.9 H Glucose 122 H Calcium 9.0 Troponin I < 0.015 Radiography Chest X-Ray - ED: 1 View, Read by ED Physician and Read by Radiologist Diagnostic Testing: Radiology Impression Chest X-Ray 07/29/20 15:19 IMPRESSION: Normal x-ray examination of the chest. Electronically Signed: Tramaine Murphy MD at 15:29 EDT Tel , Service support , Chest CTA 07/29/20 16:11 IMPRESSION: Normal CTA chest examination, without a demonstrated pulmonary embolism or arterial dissection. No evidence for acute chest disease. Electronically Signed: Carlton Guzmán MD at 16:50 EDT , Service support , EKG Initial EKG: Attestation: I personally reviewed and interpreted this EKG as follows: Interpretation: No Acute Injury Pattern and Sinus Bradycardia Discharge Plan Triage Chief Complaint: Cough ED Provider: Zoila Davenport Dx/Rx/DC Orders Clinical Impression: Viral syndrome Instructions: ED Viral Syndrome (Adult) Prescriptions: No Action hydrochlorothiazide 12.5 mg tablet 12.5 mg PO QDAY RF: 0 ferrous sulfate 325 mg (65 mg iron) tablet 325 mg PO TIDCM 14 Days Qty: 42 RF: 1 metformin 500 MG tablet 500 mg PO BID RF: 0 multivitamin 1 EACH tablet 1 ea PO DAILY RF: 0 acetaminophen 325 MG tablet 650 mg PO Q6H PRN (Reason: Pain) RF: 0 ondansetron HCl 4 MG tablet 4 mg PO Q8H PRN (Reason: Nausea) RF: 0 sennosides-docusate sodium 1 EACH tablet 1 ea PO BID RF: 0 aspirin 81 MG tablet,chewable 81 mg PO DAILY RF: 0 ergocalciferol (vitamin D2) 50,000 UNIT capsule 50,000 unit PO Q7D RF: 0 duloxetine 60 MG capsule,delayed release(DR/EC) 60 mg PO DAILY RF: 0 cyanocobalamin (vitamin B-12) 2,500 MCG tablet 2,000 mcg PO DAILY RF: 0 famotidine 20 MG tablet 20 mg PO BID RF: 0 atorvastatin 20 MG tablet 20 mg PO QHS RF: 0 potassium chloride 10 MEQ tablet extended release 1 tab PO DAILY RF: 0 bupropion HCl 100 MG tablet sustained-release 12 hr 100 mg PO BID RF: 0 mirabegron 50 MG tablet extended release 24 hr 50 mg PO DAILY RF: 0 Primary Care Provider: Radha Alcala Referrals: Radha Alcala MD [Primary Care Provider] - Disposition Disposition: Home, self care
--- NOTE | 2020-07-29 15:19 | RAD_ITS ---
STUDY: X-RAY CHEST REASON FOR EXAM: Female, 60 years old. cough TECHNIQUE: Single AP portable view of the chest. COMPARISON: 10/05/2016 FINDINGS: The lungs are clear and expanded. There is no demonstrated pleural abnormality. Normal size heart. Normal mediastinum and cesar. Normal visualized pulmonary arteries. Normal visualized aortic arch and descending thoracic aorta. Normal visualized thoracic spine. Normal visualized ribs, clavicles, and shoulders. There is no demonstrated abnormality of the visualized soft tissue structures of the upper abdomen. RAD/Chest 1 View (Portable) IMPRESSION: Normal x-ray examination of the chest. Electronically Signed: Tramaine Murphy MD at 15:29 EDT Tel , Service support ,
[2020-07-29 15:23] LABS: Absolute Lymphocyte Count 2.77 X10^3/uL (0.83-4.51); Basophil# 0.05 X10^3/uL; Basophil% 0.7 % (0-1); Eosinophil# 0.19 X10^3/uL; Eosinophils% 2.5 % (0-5); Hemoglobin 11.4 g/dL (12.0-15.0); Lymphocyte # 2.77 X10^3/ul (0.83-4.51); Lymphocyte % 36.8 % (19-41); Mean Corp Hgb Conc 30.8 g/dL (32-36); Mean Corpuscular Hgb 27.1 pg (27.0-32.0); Mean Corpuscular Volume 88.1 fL (81-99); Mean Platelet Vol. 9.9 fl (6.2-12.0); Monocyte# 0.46 X10^3/uL; Monocyte% 6.1 % (0-10); NRBC Flagged by Analyzer 0 % (0-5); Neutrophil # 4.02 X10^3/uL (2.7-7.7); Neutrophil % 53.5 % (47-70); Platelet Count 272 K/mm3 (150-450); RBC Distribution Width CV 13.2 % (11.6-14.6); RBC Distribution Width SD 42.6 fl (35.1-43.9); White Blood Count 7.5 K/mm3 (4.4-11.0)
[2020-07-29 16:01] LABS: D-Dimer Quantitative (DVT/PE) 1.16 FEU/ug/m (0.27-0.49)
[2020-07-29 16:09] LABS: Anion Gap 3 (5-15); BUN 15 mg/dL (7-18); BUN/Creat Ratio 21.9 RATIO (10-20); Chloride 111 mmol/L (98-107); Creatinine, Serum 0.69 mg/dL (0.55-1.02); EST Glomerular Filtration Rate 93 mL/min (>60); Est Glom Filt Rate - Afr Amer 112 mL/min (>60); Estimated Creatinine Clearance 78.02 ml/min; Glucose 122 mg/dL (74-106); Potassium 3.9 mmol/L (3.5-5.1); Sodium Level 141 mmol/L (136-145)
--- NOTE | 2020-07-29 16:11 | CT_ITS ---
STUDY: CTA CHEST REASON FOR EXAM: Female, 60 years old. elevated d dimer RADIATION DOSAGE (If Supplied By Facility): CTDIvol = ( 14.58 ) mGy, DLP = ( 508.74 ) mGycm TECHNIQUE: The examination was performed with the intravenous administration of IV 100mL Isovue-370. Post-processing of the angiographic images was performed, with multiplanar reformation and 3D reconstruction. Individualized dose optimization techniques were used for this CT. COMPARISON: 07/21/2016 FINDINGS: Normal enhancement of the main pulmonary artery and right and left pulmonary arteries. Normal enhancement of the bilateral peripheral pulmonary arteries. There is no demonstrated pulmonary embolism. Normal thoracic aorta and visualized great vessels. There is no demonstrated aortic dissection. Normal heart and pericardium. There are calcifications of the coronary arteries. Normal mediastinum. Normal hilar regions. Diffuse thyroid goiter. Normal visualized trachea and bronchi. The lungs are under expanded. Normal pulmonary parenchyma. Normal pleura. Normal chest wall structures. There are degenerative changes of thoracic spine. Normal visualized upper abdomen. CT/CTA Chest W/WO Contrast IMPRESSION: Normal CTA chest examination, without a demonstrated pulmonary embolism or arterial dissection. No evidence for acute chest disease. Electronically Signed: Carlton Guzmán MD at 16:50 EDT , Service support ,
[2020-07-29 16:25] VITALS: BP 118/67
[2020-07-29 17:52] VITALS: BP 126/73; PULSE 67; RESP 15; O2SAT 99
== END 2020-07-29 17:54 | disposition home or self-care (01) ==
PROVIDERS: Emergency Provider Emergency Medicine; PCP Internal Medicine
DX: B34.9 Viral infection, unspecified (principal); E11.9 Type 2 diabetes mellitus without complications; E78.5 Hyperlipidemia, unspecified; I10 Essential (primary) hypertension; E66.9 Obesity, unspecified; Z79.84 Long term (current) use of oral hypoglycemic drugs; Z79.899 Other long term (current) drug therapy
CPT/HCPCS: 71045; 71275; 80048; 84484; 85025; 85379; 87426; 93005; 99284; Q9967

== ENCOUNTER 2021-06-11 15:48 | Emergency (ER) | payer MEDICAID, SELFPAY ==
[2021-06-11 15:50] VITALS: BP 163/92; PULSE 80; RESP 18; TEMP 36.6; O2SAT 96; BMI 46.5
--- NOTE | 2021-06-11 16:10 | EKG12_ITS ---
Test Reason : NUMBNESS Blood Pressure : / mmHG Vent. Rate : 069 BPM Atrial Rate : 069 BPM P-R Int : 150 ms QRS Dur : 078 ms QT Int : 388 ms P-R-T Axes : 033 -21 -21 degrees QTc Int : 415 ms Sinus rhythm with occasional Premature ventricular complexes Nonspecific ST abnormality Abnormal ECG Confirmed by BRITTA ACOSTA, RACHELE ([id number]), deputy editor in chief GEE CEDENO ([id number]) on 06/13/2021 2:14:18 PM Referred By: KIARA Confirmed By:TASHIA CALLEJAS MD
--- NOTE | 2021-06-11 16:11 | EDS_ITS ---
HPI History of Present Illness Chief Complaint: Numb/Ting Detail of Chief Complaint: Numbness and tingling to the right side of the neck off and on for 2 weeks Informant: patient Narrative Narrative: Patient presents to the emergency department with a vague numbness to the right side of her neck x2 weeks. Patient states that the numbness has been more frequent over the last couple of days. She states it comes on and lasts about 30 seconds to a minute and then resolves. She denies any neck pain any pain down the arm. She denies chest pain or shortness of breath. [facility] Medical History (Updated 06/11/21 @ 17:[address] Mary Rebolledo, DO) Acute kidney injury Chronic pain Diabetes mellitus, type II Elevated LFTs History of colon cancer Hyperlipidemia Hypertension Hypokalemia Hypomagnesemia Iron deficiency anemia Morbid obesity with BMI of 50.0-59.9, adult Pulmonary embolism Septic arthritis of wrist, right Home Medications acetaminophen 650 mg PO Q6H PRN 10/05/16 [History Last Taken Unknown] aspirin 81 mg PO DAILY 10/05/16 [History Last Taken 05/13/20] cyanocobalamin (vitamin B-12) 2,000 mcg PO DAILY 10/05/16 [History Last Taken 05/13/20] duloxetine 60 mg PO DAILY 10/05/16 [History Last Taken 05/13/20] ergocalciferol (vitamin D2) 50,000 unit PO Q7D 10/05/16 [History Last Taken 05/07/20] metformin 500 mg PO BID 10/05/16 [History Last Taken 05/13/20] multivitamin 1 ea PO DAILY 10/05/16 [History Last Taken 05/13/20] ondansetron HCl 4 mg PO Q8H PRN 10/05/16 [History Last Taken Unknown] sennosides-docusate sodium 1 ea PO BID 10/05/16 [History Last Taken 05/13/20] hydrochlorothiazide 12.5 mg tablet 12.5 mg PO QDAY 03/22/17 [History Last Taken 05/13/20] famotidine 20 mg PO BID 05/03/20 [History Last Taken 05/13/20] atorvastatin 20 mg PO QHS 05/14/20 [History Last Taken 05/13/20] bupropion HCl 100 mg PO BID 05/14/20 [History Last Taken 05/13/20] mirabegron 50 mg PO DAILY 05/14/20 [History Last Taken 05/13/20] potassium chloride 1 tab PO DAILY 05/14/20 [History Last Taken 05/13/20] ferrous sulfate 325 mg (65 mg iron) tablet 325 mg PO TIDCM 14 Days #42 tab 05/22/20 [Rx Last Taken Unknown] Allergy/AdvReac Type Severity Reaction Status Date / Time adhesive tape Allergy Mild rash Verified 06/11/21 15:49 Family History Mother Diabetes CAD (coronary artery disease) Father Heart disease Diabetes Surgical History History of incisional hernia repair S/P cholecystectomy S/P colectomy S/P colonoscopy S/P insertion of IVC (inferior vena caval) filter S/P repair of ventral hernia Status post knee replacement Social History (Updated 05/22/20 @ 15:53 by Anna ELDRIDGE, PA-C) Smoking Status: Never smoker alcohol intake: never ROS ROS ED Constitutional Constitutional ED: Reports systems reviewed and no addt'l complaints, except as documented; Denies body ache(s), change in weight or chills Eyes Eyes: Denies acute decrease in peripheral vision, change in vision, double vision or loss of vision ENT ENT ED: Reports none; Denies ear pain, lip swelling, loss taste/smell, neck pain, otalgia or sore throat Cardiovascular Cardiovascular: Reports none; Denies abdominal pain, chest pain with activity, leg edema, lightheadedness, palpitations, rapid heart rate or syncope Respiratory/Chest Respiratory/Chest: Reports none; Denies change in mental status, dry cough, dyspnea, hemoptysis, shortness of breath at rest or shortness of breath with exertion Gastrointestinal Gastrointestinal: Reports none; Denies abdominal pain, change in stool character, diarrhea, hematemesis, hematochezia, melena, rectal bleeding or vomiting Genitourinary Genitourinary ED: Reports none; Denies abdominal discomfort, anuria, dysuria, genital pain or polyuria Musculoskeletal Musculoskeletal: Reports none; Denies arthralgias, back pain, difficulty walking, extremity pain, muscle weakness or myalgias Integumentary Reports none; Denies abscess or rash Neurologic Neurologic: Reports none and paresthesias; Denies abnormal gait, confusion, focal weakness, frequent falls, headache(s), loss of vision, numbness, radicular pain, vertigo or weakness Psychiatric Psychiatric: Reports systems reviewed and no addt'l complaints, except as documented and none; Denies behavioral changes, confusion, difficulty concentrating, hallucinations, suicidal ideation, tactile hallucinations or visual hallucinations Endocrine Endocrinology: Denies none, cold intolerance, excessive sweating, fatigue or heat intolerance Hematologic/Lymphatic Hematologic/Lymphatic: Reports none; Denies anemia, easy bleeding or easy bruising Allergic/Immunologic Allergic/Immunologic ED: Denies as per HPI, none, lip swelling, mouth swelling, throat swelling, tongue swelling or hives EXAM Physical Exam Const Vital Signs: 06/11/21 15:50 Temperature 97.9 F Temperature Source Temporal Pulse Rate 80 Respiratory Rate 18 Blood Pressure 163/92 H Blood Pressure Mean 115 Pulse Ox 96 Oxygen Delivery Method Room Air Positive well nourished and well developed General Appearance ED: well developed and NAD HEENT Reports TM's clear and moist mucous membranes normocephalic and atraumatic; Negative for trauma or tenderness Tympanic Membrane ED: Yes TM's clear Eyes PERRL and EOMs intact bilaterally General Eye ED: Negative for pale conjunctiva or scleral icterus Neck no lymphadenopathy, supple and no JVD General: Negative for tenderness Chest Wall inspection of chest normal and palpation of chest normal Chest: Negative for tenderness Resp normal respiratory effort and clear to auscultation bilaterally Effort and Inspection: Negative for respiratory distress or pain with movement Auscultation: Negative for rhonchi, wheezes or diminished lung sounds Cardio regular rate, regular rhythm, S1 normal heart sound, S2 normal heart sound and no murmurs Peripheral Pulses: pulses 2+ throughout GI normal to inspection, nondistended, normoactive bowel sounds, soft to palpation, non-tender, non-distended and no masses Back/Spine no CVA tenderness and no thoracic nor lumbar tenderness Extremity normal to inspection General Extremety ED: Negative for edema General Extremity: Negative for edema Neuro oriented x3, CN's II-XII intact bilaterally, no sensory deficits noted and gait normal Sensorium / Orientation: awake, alert, oriented to person, oriented to place and oriented to time Motor Exam: strength 5/5 throughout and strength abnormal Psych mental status grossly normal Skin no rashes or lesions noted and no wounds MDM MDM MDM Narrative Medical decision making narrative: IV Hep-Lock established on arrival. Lab work-up was normal. EKG and troponin were unremarkable. At this point etiology of her paresthesias are unclear although I suspect potentially involvement of a superficial nerve to the skin to that area. She has no signs or symptoms of cervical radiculopathy. Patient advised to follow-up with primary care physician in 5 to 7 days. Lab Data Attestation: I reviewed the patient's lab results. Labs: Laboratory Results - last 24 hr 06/11/21 06/11/21 16:23 16:23 WBC 9.5 RBC 4.72 Hgb 13.8 Hct 41.3 MCV 87.5 MCH 29.2 MCHC 33.4 RDW Std Deviation 41.9 RDW Coeff of Chris 13.2 Plt Count 303 MPV 9.5 Immature Gran % (Auto) 0.500 Neut % (Auto) 70.6 H Lymph % (Auto) 20.2 [place] % (Auto) 6.9 Eos % (Auto) 1.4 Baso % (Auto) 0.4 Absolute Neuts (auto) 6.7 Absolute Lymphs (auto) 1.91 Nucleated RBC % 0 Sodium 137 Potassium 3.9 Chloride 103 Carbon Dioxide 28.0 Anion Gap 6 BUN 19 H Creatinine 0.96 Estim Creat Clear Calc 55.38 Est GFR (MDRD) Af Amer 76 Est GFR (MDRD) Non-Af 63 BUN/Creatinine Ratio 19.9 Glucose 152 H Calcium 9.4 Troponin I High Sens 5 EKG Initial EKG: Attestation: I personally reviewed and interpreted this EKG as follows: Comments: Sinus rhythm with a rate of [address] changes Discharge Plan Triage Chief Complaint: Numb/Ting ED Provider: Mary Rebolledo Dx/Rx/DC Orders Clinical Impression: Paresthesias, Hypertension, Diabetes Instructions: ED Paraesthesias Prescriptions: No Action hydrochlorothiazide 12.5 mg tablet 12.5 mg PO QDAY RF: 0 ferrous sulfate 325 mg (65 mg iron) tablet 325 mg PO TIDCM 14 Days Qty: 42 RF: 1 metformin 500 MG tablet 500 mg PO BID RF: 0 multivitamin 1 EACH tablet 1 ea PO DAILY RF: 0 acetaminophen 325 MG tablet 650 mg PO Q6H PRN (Reason: Pain) RF: 0 ondansetron HCl 4 MG tablet 4 mg PO Q8H PRN (Reason: Nausea) RF: 0 sennosides-docusate sodium 1 EACH tablet 1 ea PO BID RF: 0 aspirin 81 MG tablet,chewable 81 mg PO DAILY RF: 0 ergocalciferol (vitamin D2) 50,000 UNIT capsule 50,000 unit PO Q7D RF: 0 duloxetine 60 MG capsule,delayed release(DR/EC) 60 mg PO DAILY RF: 0 cyanocobalamin (vitamin B-12) 2,500 MCG tablet 2,000 mcg PO DAILY RF: 0 famotidine 20 MG tablet 20 mg PO BID RF: 0 atorvastatin 20 MG tablet 20 mg PO QHS RF: 0 potassium chloride 10 MEQ tablet extended release 1 tab PO DAILY RF: 0 bupropion HCl 100 MG tablet sustained-release 12 hr 100 mg PO BID RF: 0 mirabegron 50 MG tablet extended release 24 hr 50 mg PO DAILY RF: 0 Primary Care Provider: Radha Alcala Referrals: Radha Alcala MD [Primary Care Provider] - 5-7 Days Disposition Disposition: Home, Self Care
[2021-06-11 16:29] LABS: Absolute Lymphocyte Count 1.91 X10^3/uL (0.83-4.51); Absolute Neutrophil Count 6.7 X10^3/uL (2.0-7.7); Basophil# 0.04 X10^3/uL; Basophil% 0.4 % (0-1); Eosinophil# 0.13 X10^3/uL; Eosinophils% 1.4 % (0-5); Hematocrit 41.3 % (37-47); Hemoglobin 13.8 g/dL (12.0-15.0); Lymphocyte # 1.91 X10^3/ul (0.83-4.51); Lymphocyte % 20.2 % (19-41); Mean Corp Hgb Conc 33.4 g/dL (32-36); Mean Corpuscular Hgb 29.2 pg (27.0-32.0); Mean Corpuscular Volume 87.5 fL (81-99); Mean Platelet Vol. 9.5 fl (6.2-12.0); Monocyte# 0.65 X10^3/uL; Monocyte% 6.9 % (0-10); NRBC Flagged by Analyzer 0 % (0-5); Neutrophil # 6.67 X10^3/uL (2.7-7.7); Neutrophil % 70.6 % (47-70); Platelet Count 303 K/mm3 (150-450); RBC Distribution Width CV 13.2 % (11.6-14.6); RBC Distribution Width SD 41.9 fl (35.1-43.9); Red Blood Count 4.72 M/mm3 (4.2-5.4); White Blood Count 9.5 K/mm3 (4.4-11.0)
[2021-06-11 16:48] LABS: Anion Gap 6 (5-15); BUN 19 mg/dL (7-18); BUN/Creat Ratio 19.9 RATIO (10-20); Calcium,Total 9.4 mg/dL (8.5-10.1); Chloride 103 mmol/L (98-107); Creatinine, Serum 0.96 mg/dL (0.55-1.02); EST Glomerular Filtration Rate 63 mL/min (>60); Est Glom Filt Rate - Afr Amer 76 mL/min (>60); Estimated Creatinine Clearance 55.38 ml/min; Glucose 152 mg/dL (74-106); Potassium 3.9 mmol/L (3.5-5.1); Sodium Level 137 mmol/L (136-145); Troponin-I HS 5 pg/mL (3.0-54.0)
[2021-06-11 17:34] VITALS: BP 143/77; PULSE 84; RESP 16; O2SAT 95
== END 2021-06-11 17:35 | disposition home or self-care (01) ==
PROVIDERS: Emergency Provider Emergency Medicine; PCP Internal Medicine; Visit Provider Emergency Medicine
DX: R20.2 Paresthesia of skin (principal); E66.01 Morbid (severe) obesity due to excess calories; Z68.42 Body mass index [BMI] 45.0-49.9, adult; E11.9 Type 2 diabetes mellitus without complications; I10 Essential (primary) hypertension; E78.5 Hyperlipidemia, unspecified; Z85.038 Personal history of other malignant neoplasm of large intestine; G89.29 Other chronic pain; Z86.711 Personal history of pulmonary embolism; Z79.82 Long term (current) use of aspirin; Z79.899 Other long term (current) drug therapy; Z79.84 Long term (current) use of oral hypoglycemic drugs; D50.9 Iron deficiency anemia, unspecified
CPT/HCPCS: 80048; 84484; 85025; 93005; 99284; A4216

== ENCOUNTER 2021-10-06 08:59 | Outpatient (RCR) | payer MEDICAID, SELFPAY | END 2021-10-12 23:59 | LOC: DC 08:59 | PROVIDERS: PCP Internal Medicine; Referring Provider Nurse Practitioner; Visit Provider Nurse Practitioner | DX: E11.9 Type 2 diabetes mellitus without complications (principal); I10 Essential (primary) hypertension; Z98.84 Bariatric surgery status | CPT/HCPCS: 97802 ==

== ENCOUNTER 2022-08-01 22:05 | Emergency (ER) | payer MEDICAID, SELFPAY ==
[2022-08-01 22:06] VITALS: BP 136/66; PULSE 80; RESP 17; TEMP 36.9; O2SAT 99; BMI 46.0
--- NOTE | 2022-08-01 22:30 | EX.ED.DYSGE1 ---
HPI History of Present Illness Chief Complaint: Other, Pain/Inj Detail of Chief Complaint: Facial redness Informant: patient and spouse/S.O. Onset/Context/Timing Onset: Yesterday Context: Gradual Onset Current Severity: Moderate Maximum Severity: Moderate Narrative Narrative: Patient presents with redness and warmth across her face. states last evening her right cheek seemed a little red. Today it is spread across her nose and under her left cheek as well. Skin is warm and slightly swollen. She states it feels like there small bumps over her skin. [facility] Medical History (Updated 08/01/22 @ 23:[address] Francisca Redmond MD) Acute kidney injury Chronic pain Diabetes mellitus, type II Elevated LFTs History of colon cancer Hyperlipidemia Hypertension Hypokalemia Hypomagnesemia Iron deficiency anemia Morbid obesity with BMI of 50.0-59.9, adult Pulmonary embolism Septic arthritis of wrist, right Home Medications acetaminophen 325 mg tablet 650 mg PO Q6H PRN Pain 10/05/16 [History Last Taken Unknown] aspirin 81 mg chewable tablet 81 mg PO DAILY heart health 10/05/16 [History Last Taken 05/13/20] cyanocobalamin (vitamin B-12) 2,500 mcg tablet 2,000 mcg PO DAILY supplement 10/05/16 [History Last Taken 05/13/20] duloxetine 60 mg capsule,delayed release 60 mg PO DAILY depression 10/05/16 [History Last Taken 05/13/20] ergocalciferol (vitamin D2) 1,250 mcg (50,000 unit) capsule 50,000 unit PO Q7D supplement 10/05/16 [History Last Taken 05/07/20] metformin 500 mg tablet,extended release 24 hr 500 mg PO BID Diabetes 10/05/16 [History Last Taken 05/13/20] multivitamin 1 ea PO DAILY supplement 10/05/16 [History Last Taken 05/13/20] ondansetron HCl 4 mg tablet 4 mg PO Q8H PRN Nausea 10/05/16 [History Last Taken Unknown] sennosides 8.6 mg-docusate sodium 50 mg tablet 1 ea PO BID stool softner 10/05/16 [History Last Taken 05/13/20] hydrochlorothiazide 12.5 mg tablet 12.5 mg PO QDAY water pill 03/22/17 [History Last Taken 05/13/20] famotidine 20 mg tablet 20 mg PO BID stomach 05/03/20 [History Last Taken 05/13/20] atorvastatin 20 mg tablet 20 mg PO QHS cholesterol 05/14/20 [History Last Taken 05/13/20] bupropion HCl 100 mg tablet,12 hr sustained-release 100 mg PO BID anxiety 05/14/20 [History Last Taken 05/13/20] mirabegron 50 mg tablet,extended release 24 hr 50 mg PO DAILY bladder 05/14/20 [History Last Taken 05/13/20] potassium chloride 10 mEq tablet,extended release 1 tab PO DAILY supplement 05/14/20 [History Last Taken 05/13/20] ferrous sulfate 325 mg (65 mg iron) tablet 325 mg PO TIDCM 14 days #42 tabs 05/22/20 [Rx Last Taken Unknown] cephalexin 500 mg capsule 500 mg PO Q6 #40 CAPSULES 08/01/22 [Rx Last Taken Unknown] semaglutide 1 mg/dose (4 mg/3 mL) subcutaneous pen injector (Ozempic) 1 mg subcut QWEEK 08/01/22 [History Last Taken Unknown] sulfamethoxazole 800 mg-trimethoprim 160 mg tablet (Bactrim DS) 1 tab PO BID #20 tabs 08/01/22 [Rx Last Taken Unknown] Allergy/AdvReac Type Severity Reaction Status Date / Time adhesive tape Allergy Mild rash Verified 08/01/22 22:08 Family History Mother Diabetes CAD (coronary artery disease) Father Heart disease Diabetes Surgical History History of incisional hernia repair S/P cholecystectomy S/P colectomy S/P colonoscopy S/P insertion of IVC (inferior vena caval) filter S/P repair of ventral hernia Status post knee replacement Social History Smoking Status: Never smoker alcohol intake: never ROS ROS ED Constitutional Constitutional ED: Denies chills or fever(s) Eyes Eyes: Denies change in vision or discharge from eye(s) ENT ENT ED: Reports other Details: Facial redness and warmth ; Denies discharge from eye(s), rhinorrhea or sore throat Cardiovascular Cardiovascular: Denies chest pain Respiratory/Chest Respiratory/Chest: Denies cough or dyspnea Gastrointestinal Gastrointestinal: Denies abdominal pain, nausea or vomiting Musculoskeletal Musculoskeletal: Denies back pain or extremity pain Integumentary Reports rash; Denies Abrasions Neurologic Neurologic: Denies headache(s) or weakness Allergic/Immunologic Allergic/Immunologic ED: Denies lip swelling or urticaria EXAM Physical Exam Const Vital Signs: 08/01/22 22:06 08/01/22 22:43 Temperature 98.5 F 98.5 F Temperature Source Temporal Temporal Pulse Rate 80 80 Respiratory Rate 17 17 Blood Pressure 136/66 H 136/66 H Blood Pressure Mean 89 89 Pulse Ox 99 99 Oxygen Delivery Method Room Air Room Air Positive well nourished and well developed General Appearance ED: well developed HEENT Reports moist mucous membranes HEENT Narrative: Butterfly-like rash across nasal bridge and onto the maxilla bilaterally. Skin is slightly indurated and warm to the touch. No open lesions noted. Eyes PERRL and EOMs intact bilaterally Neck Neck Narrative: Mild bilateral cervical lymphadenopathy. Chest Wall inspection of chest normal and palpation of chest normal Resp normal respiratory effort and clear to auscultation bilaterally Cardio regular rate and regular rhythm GI normal to inspection, nondistended, normoactive bowel sounds Extremity normal to inspection Neuro oriented x3 MDM MDM MDM Narrative Medical decision making narrative: Labwork obtained to evaluate for leukocytosis, anemia, and electrolyte derangement. Blood cultures obtained. Patient given a dose of IV Ancef. Lab Data Attestation: I reviewed the patient's lab results. Labs: Laboratory Results - last 24 hr 08/01/22 08/01/22 22:39 22:39 WBC 9.8 RBC 4.31 Hgb 12.7 Hct 39.2 MCV 91.0 MCH 29.5 MCHC 32.4 RDW Std Deviation 44.7 H RDW Coeff of Chris 13.3 Plt Count 261 MPV 9.7 Immature Gran % (Auto) 1.100 H Neut % (Auto) 63.8 Lymph % (Auto) 26.0 [place] % (Auto) 7.9 Eos % (Auto) 0.9 Baso % (Auto) 0.3 Absolute Neuts (auto) 6.3 Absolute Lymphs (auto) 2.55 Nucleated RBC % 0 ESR 16 Sodium 141 Potassium 3.8 Chloride 109 H Carbon Dioxide 26.0 Anion Gap 6 BUN 16 Creatinine 0.90 Estim Creat Clear Calc 58.32 Est GFR (MDRD) Af Amer 82 Est GFR (MDRD) Non-Af 67 BUN/Creatinine Ratio 17.8 Glucose 112 H Calcium 9.5 C-React Prot Ext Range 13.50 H Treatment and Re-Evaluation :: CBC was normal white count with normal differential. Chemistry studies unremarkable with normal renal function. Her glucose is 112. Her CRP is slightly elevated at 13.5, however this is lower than previous values. Her sed rate is 16. Test results discussed with the patient. I will treat her with Bactrim and Keflex. I did recommend she take a picture of her face every day so she can watch progression of the redness to ensure it is not worsening. I did advise her that there are many other conditions that can cause a similar butterfly rash but I believe this is all cellulitis. If she has not improved with antibiotics she is to follow with her primary care physician for further testing. She voices understanding and agreement. Discharge Plan Triage Chief Complaint: Other, Pain/Inj ED Provider: Francisca Redmond Dx/Rx/DC Orders Clinical Impression: Cellulitis Instructions: ED Cellulitis Prescriptions: New sulfamethoxazole-trimethoprim [Bactrim DS] 800-160 mg tablet 1 tab PO BID Qty: 20 0RF cephalexin 500 mg capsule 500 mg PO Q6 Qty: 40 0RF No Action hydrochlorothiazide 12.5 mg tablet 12.5 mg PO QDAY ferrous sulfate 325 mg (65 mg iron) tablet 325 mg PO TIDCM 14 Days Qty: 42 1RF metformin 500 MG tablet 500 mg PO BID multivitamin 1 EACH tablet 1 ea PO DAILY acetaminophen 325 MG tablet 650 mg PO Q6H PRN (Reason: Pain) ondansetron HCl 4 MG tablet 4 mg PO Q8H PRN (Reason: Nausea) sennosides-docusate sodium 1 EACH tablet 1 ea PO BID aspirin 81 MG tablet,chewable 81 mg PO DAILY ergocalciferol (vitamin D2) 50,000 UNIT capsule 50,000 unit PO Q7D Rx Instructions: every wednesday duloxetine 60 MG capsule,delayed release(DR/EC) 60 mg PO DAILY cyanocobalamin (vitamin B-12) 2,500 MCG tablet 2,000 mcg PO DAILY famotidine 20 MG tablet 20 mg PO BID atorvastatin 20 MG tablet 20 mg PO QHS potassium chloride 10 MEQ tablet extended release 1 tab PO DAILY Label Comments: Take 1 tablet by mouth daily with breakfast. bupropion HCl 100 MG tablet sustained-release 12 hr 100 mg PO BID mirabegron 50 MG tablet extended release 24 hr 50 mg PO DAILY Ozempic 1 mg/dose (4 mg/3 mL) pen injector 1 mg SUBCUT QWEEK Rx Instructions: mondays Primary Care Provider: Radha Alcala Referrals: Radha Alcala MD [Primary Care Provider] - 1 Week if not improving Disposition Disposition: Home, Self Care
[2022-08-01 22:43] VITALS: BP 136/66; PULSE 80; RESP 17; TEMP 36.9; O2SAT 99
[2022-08-01 22:57] LABS: Erythrocyte Sedimentation Rate 16 mm/hr (0-30)
[2022-08-01] MEDS: Cefazolin 2 GM in 0.9% Normal Saline 100 ML IV (22:59)
[2022-08-01 23:02] LABS: Anion Gap 6 (5-15); BUN 16 mg/dL (7-18); BUN/Creat Ratio 17.8 RATIO (10-20); Calcium,Total 9.5 mg/dL (8.5-10.1); Chloride 109 mmol/L (98-107); EST Glomerular Filtration Rate 67 mL/min (>60); Est Glom Filt Rate - Afr Amer 82 mL/min (>60); Estimated Creatinine Clearance 58.32 ml/min; Glucose 112 mg/dL (74-106); Potassium 3.8 mmol/L (3.5-5.1); Sodium Level 141 mmol/L (136-145)
[2022-08-01 23:07] LABS: Absolute Lymphocyte Count 2.55 X10^3/uL (0.83-4.51); Absolute Neutrophil Count 6.3 X10^3/uL (2.0-7.7); Basophil# 0.03 X10^3/uL; Basophil% 0.3 % (0-1); Eosinophil# 0.09 X10^3/uL; Eosinophils% 0.9 % (0-5); Hematocrit 39.2 % (37-47); Hemoglobin 12.7 g/dL (12.0-15.0); Lymphocyte # 2.55 X10^3/ul (0.83-4.51); Mean Corp Hgb Conc 32.4 g/dL (32-36); Mean Corpuscular Hgb 29.5 pg (27.0-32.0); Mean Platelet Vol. 9.7 fl (6.2-12.0); Monocyte# 0.78 X10^3/uL; Monocyte% 7.9 % (0-10); NRBC Flagged by Analyzer 0 % (0-5); Neutrophil # 6.26 X10^3/uL (2.7-7.7); Neutrophil % 63.8 % (47-70); Platelet Count 261 K/mm3 (150-450); RBC Distribution Width CV 13.3 % (11.6-14.6); RBC Distribution Width SD 44.7 fl (35.1-43.9); Red Blood Count 4.31 M/mm3 (4.2-5.4); White Blood Count 9.8 K/mm3 (4.4-11.0)
[2022-08-01 23:08] LABS: POSITIVE COUNT NO; POSITIVE DIFFERENTIAL NO; POSITIVE MORPHOLOGY NO
== END 2022-08-01 23:51 | disposition home or self-care (01) ==
PROVIDERS: Emergency Provider Emergency Medicine; PCP Internal Medicine; Visit Provider Emergency Medicine
DX: L03.211 Cellulitis of face (principal); E11.9 Type 2 diabetes mellitus without complications; I10 Essential (primary) hypertension; E78.5 Hyperlipidemia, unspecified; Z79.82 Long term (current) use of aspirin; Z79.899 Other long term (current) drug therapy; Z79.84 Long term (current) use of oral hypoglycemic drugs; Z79.85 Long-term (current) use of injectable non-insulin antidiabetic drugs; Z90.49 Acquired absence of other specified parts of digestive tract
CPT/HCPCS: 80048; 85025; 85652; 86140; 87040; 96365; 99282; A4216

== ENCOUNTER 2024-02-10 17:55 | Emergency (ER) | payer MEDICAID, SELFPAY ==
[2024-02-10 17:56] VITALS: BP 136/71; PULSE 74; RESP 18; TEMP 36.4; O2SAT 97; BMI 42.3
--- NOTE | 2024-02-10 18:29 | ED.VIS.CHEST ---
HPI History of Present Illness Chief Complaint: Chest Pain [facility] Medical History Pulmonary embolism Iron deficiency anemia Chronic pain Septic arthritis of wrist, right Hypomagnesemia Hypokalemia Elevated LFTs Acute kidney injury Hypertension Hyperlipidemia Diabetes mellitus, type II Morbid obesity with BMI of 50.0-59.9, adult History of colon cancer Home Medications ?Medication ?Instructions ?Recorded ?Last Taken ?Type acetaminophen 325 mg tablet 650 mg PO Q6H PRN Pain 10/05/16 Unknown History aspirin 81 mg chewable tablet 81 mg PO DAILY heart health 10/05/16 05/13/20 History cyanocobalamin (vitamin B-12) 2,000 mcg PO DAILY supplement 10/05/16 05/13/20 History 2,500 mcg tablet duloxetine 60 mg capsule,delayed 60 mg PO DAILY depression 10/05/16 05/13/20 History release ergocalciferol (vitamin D2) 1,250 50,000 unit PO Q7D supplement 10/05/16 05/07/20 History mcg (50,000 unit) capsule metformin 500 mg tablet,extended 500 mg PO BID Diabetes 10/05/16 05/13/20 History release 24 hr multivitamin 1 ea PO DAILY supplement 10/05/16 05/13/20 History ondansetron HCl 4 mg tablet 4 mg PO Q8H PRN Nausea 10/05/16 Unknown History sennosides 8.6 mg-docusate sodium 1 ea PO BID stool softner 10/05/16 05/13/20 History 50 mg tablet hydrochlorothiazide 12.5 mg tablet 12.5 mg PO QDAY water pill 03/22/17 05/13/20 History famotidine 20 mg tablet 20 mg PO BID stomach 05/03/20 05/13/20 History atorvastatin 20 mg tablet 20 mg PO QHS cholesterol 05/14/20 05/13/20 History bupropion HCl 100 mg tablet,12 hr 100 mg PO BID anxiety 05/14/20 05/13/20 History sustained-release mirabegron 50 mg tablet,extended 50 mg PO DAILY bladder 05/14/20 05/13/20 History release 24 hr potassium chloride 10 mEq 1 tab PO DAILY supplement 05/14/20 05/13/20 History tablet,extended release ferrous sulfate 325 mg (65 mg 325 mg PO TIDCM 14 days #42 tabs 05/22/20 Unknown Rx iron) tablet cephalexin 500 mg capsule 500 mg PO Q6 #40 CAPSULES 08/01/22 Unknown Rx semaglutide 1 mg/dose (4 mg/3 mL) 1 mg subcut QWEEK 08/01/22 Unknown History subcutaneous pen injector (Ozempic) sulfamethoxazole 800 1 tab PO BID #20 tabs 08/01/22 Unknown Rx mg-trimethoprim 160 mg tablet (Bactrim DS) Allergy/AdvReac Type Severity Reaction Status Date / Time adhesive tape Allergy Mild rash Verified 02/10/24 17:56 Family History Mother Diabetes CAD (coronary artery disease) Father Heart disease Diabetes Surgical History S/P insertion of IVC (inferior vena caval) filter S/P cholecystectomy S/P colonoscopy History of incisional hernia repair S/P colectomy S/P repair of ventral hernia Status post knee replacement Social History Smoking Status: Never smoker alcohol intake: never EXAM Physical Exam Const Vital Signs: 02/10/24 17:56 02/10/24 18:31 02/10/24 18:45 Temperature 97.5 F L Temperature Source Temporal Pulse Rate 74 Respiratory Rate 18 Respiratory Effort Normal Non-Labored Respiratory Pattern Normal Blood Pressure 136/71 H Blood Pressure Mean 92 Pulse Ox 97 Oxygen Delivery Method Room Air Room Air 02/10/24 19:55 02/10/24 21:00 Temperature Temperature Source Pulse Rate 68 66 Respiratory Rate 18 19 H Respiratory Effort Respiratory Pattern Blood Pressure 110/67 121/68 H Blood Pressure Mean 81 85 Pulse Ox 93 95 Oxygen Delivery Method Room Air Room Air MDM MDM MDM Narrative Medical decision making narrative: HISTORY OF PRESENT ILLNESS: 63-year-old female presents with sharp chest pain. States intermittent chest pain for last several days. Notes is left-sided. Is not associate with exertion. Not associated with deep breath. Denies any mopped assist, hematemesis, melena or hematochezia. Notes history of blood clot in the past this does not feel similar per her. No cough fever chills. No lower extremity edema REVIEW OF SYSTEMS: Pertinent positives: Chest pain Pertinent negatives: Syncope, focal weakness, bleeding diathesis, vomiting, shortness of breath, cough PHYSICAL EXAM: Nursing triage notes reviewed, Vital signs reviewed Constitutional: please see [facility] HENT: MMM Eyes: Pupils equal round and reactive to light, Extraocular muscles intact Neck: No stridor, no JVD, full neck ROM Lungs: Clear to auscultation, No wheezing or rales. No increased work of breathing, no conversational dyspnea, no accessory muscle use, no nasal flaring. No respiratory distress noted Heart: Regular rate and rhythm, No murmurs, No rubs and No gallops, 2+ distal pulses (radial, femoral, posterior tibial) in all extremities Abdomen: Soft, there is no tenderness, rigidity, rebound or guarding, no obvious peritoneal signs, no palpable pulsatile abdominal masses, no auscultated abdominal bruit : No CVAT Extremities: No edema Neuro: No new focal neurological deficits, cranial nerves II through XII intact, 5/5 strength in all present extremities. Intact sensation to light touch in all present extremities, 2+ reflexes bilateral patella tendons. Skin: No rash or lesions noted MEDICAL DECISION MAKING: Chief Complaint: Chest pain External records reviewed: Reviewed prior allergies, problem list, vital signs, current medications. Noted no anticoagulation Factors affecting care: GI bleed, hypertension, hyperlipidemia, type 2 diabetes, obesity Social determinants of health: none History obtained from others:Family Consults: none [facility] Narrative: The patient was initially hemodynamically stable, afebrile and nontoxic-appearing. Exam without focal cardiopulmonary normalities. No stigmata VTE I considered the following differential diagnosis: ACS, arrhythmia, anemia, electrolyte disturbance, PE I obtained a broad lab and imaging workup to further elucidate etiology of the patient's complaint ALL IMAGES (IF OBTAINED) HAVE BEEN PERSONALLY REVIEWED AND INTERPRETED BY MYSELF. I have personally reviewed the patient's chest x-ray. Chest x-ray is unremarkable for pulmonary edema, pneumothorax, pneumonia or focal cardiopulmonary abnormality. D-dimer elevated will obtain a CTA, CTA was negative for PE High-sensitivity troponin is negative, no evidence of myocardial ischemia x2 CBC with no leukocytosis, noted mild anemia, no thrombocytopenia BMP without evidence of significant electrolyte abnormalities, no anion gap, no acute kidney injury. The synthesis of the patient's history, physical exam, labs images suggest no acute life-limiting etiology specifically she ruled out based on high-sensitivity troponin protocol and as such is a low risk for ACS. No evidence of PE on CTA despite elevated D-dimer. Patient was given strict return precautions and cardiology follow-up instructions The patient and/or family, caregivers express understanding. The patient and/or family, caregivers agrees with the plan. Shared decision making: I will have a discussion with the patient and or visitors regarding risk/benefits of further testing or admission. They will be made aware of of the risk/benefits inherent in this decision they will be given the opportunity to voice understanding. Total critical care time today provided was at least 0 minutes. This excludes separately billable procedures. Critical care time (if documented) is secondary to the patient having high probability of clinically significant/life threatening deterioration in the patient's condition which required my urgent intervention. Impression: 1. Chest pain 2. History of PE Dispo: Discharge home This note was generated with [employer] dictation software. It may contain incorrect words, spelling, and punctuation that were not noted in review of the chart prior to signing. Lab Data Labs: Laboratory Results - last 24 hr 02/10/24 02/10/24 02/10/24 18:15 18:30 21:03 WBC 6.7 RBC 3.95 L Hgb 11.7 L Hct 35.6 L MCV 90.1 MCH 29.6 MCHC 32.9 RDW Std Deviation 43.9 RDW Coeff of Chris 13.4 Plt Count 247 MPV 9.6 Immature Gran % (Auto) 0.300 Neut % (Auto) 52.7 Lymph % (Auto) 36.8 [place] % (Auto) 8.0 Eos % (Auto) 1.8 Baso % (Auto) 0.4 Absolute Neuts (auto) 3.5 Absolute Lymphs (auto) 2.47 Nucleated RBC % 0 D-Dimer Quant (PE/DVT) 0.93 H* Sodium 141 Potassium 3.8 Chloride 111 H Carbon Dioxide 26.0 Anion Gap 4 L BUN 22 H Creatinine 0.99 Estim Creat Clear Calc 73.72 Est GFR (MDRD) Af Amer 73 Est GFR (MDRD) Non-Af 60 BUN/Creatinine Ratio 22.2 H Glucose 107 H Calcium 8.8 Troponin I High Sens 4 4 Radiography Diagnostic Testing: Clinical Impression(s) from Imaging Studies Chest X-Ray 02/10/24 18:55 IMPRESSION: No acute cardiopulmonary pathology Electronically Signed: Matt Klein MD at 20:13 EST , Chest CTA 02/10/24 20:09 IMPRESSION: ASHD. No acute cardiopulmonary pathology.. No evidence for pulmonary embolus Electronically Signed: Matt Klein MD at 21:38 EST , Discharge Plan Triage Chief Complaint: Chest Pain ED Provider: Feng Morales Dx/Rx/DC Orders Prescriptions: No Action hydrochlorothiazide 12.5 mg tablet 12.5 mg PO QDAY ferrous sulfate 325 mg (65 mg iron) tablet 325 mg PO TIDCM 14 Days Qty: 42 1RF metformin 500 MG tablet 500 mg PO BID multivitamin 1 EACH tablet 1 ea PO DAILY acetaminophen 325 MG tablet 650 mg PO Q6H PRN (Reason: Pain) ondansetron HCl 4 MG tablet 4 mg PO Q8H PRN (Reason: Nausea) sennosides-docusate sodium 1 EACH tablet 1 ea PO BID aspirin 81 MG tablet,chewable 81 mg PO DAILY ergocalciferol (vitamin D2) 50,000 UNIT capsule 50,000 unit PO Q7D Rx Instructions: every wednesday duloxetine 60 MG capsule,delayed release(DR/EC) 60 mg PO DAILY cyanocobalamin (vitamin B-12) 2,500 MCG tablet 2,000 mcg PO DAILY famotidine 20 MG tablet 20 mg PO BID atorvastatin 20 MG tablet 20 mg PO QHS potassium chloride 10 MEQ tablet extended release 1 tab PO DAILY Patient Comments: Take 1 tablet by mouth daily with breakfast. bupropion HCl 100 MG tablet sustained-release 12 hr 100 mg PO BID mirabegron 50 MG tablet extended release 24 hr 50 mg PO DAILY Ozempic 1 mg/dose (4 mg/3 mL) pen injector 1 mg SUBCUT QWEEK Rx Instructions: mondays sulfamethoxazole-trimethoprim [Bactrim DS] 800-160 mg tablet 1 tab PO BID Qty: 20 0RF cephalexin 500 mg capsule 500 mg PO Q6 Qty: 40 0RF Primary Care Provider: Radha Alcala Referrals: Radha Alcala MD [Primary Care Provider] - Print Language: Macedonian
--- NOTE | 2024-02-10 18:55 | RAD_ITS ---
STUDY: X-RAY CHEST REASON FOR EXAM: Female, 63 years old. chest pain TECHNIQUE: AP portable COMPARISON: July 29, 2020 FINDINGS: The lungs are clear and expanded. There is no demonstrated pleural abnormality. Normal size heart. Normal mediastinum and cesar. Normal visualized pulmonary arteries. Normal visualized aortic arch and descending thoracic aorta. Dorsal spine demonstrates mild degenerative change. Normal visualized ribs, clavicles, and shoulders. There is no demonstrated abnormality of the visualized soft tissue structures of the upper abdomen. RAD/Chest 1 View (Portable) IMPRESSION: No acute cardiopulmonary pathology Electronically Signed: Matt Klein MD at 20:13 EST ,
[2024-02-10 18:59] LABS: Absolute Lymphocyte Count 2.47 X10^3/uL (0.83-4.51); Absolute Neutrophil Count 3.5 X10^3/uL (2.0-7.7); Basophil# 0.03 X10^3/uL; Basophil% 0.4 % (0-1); Eosinophil# 0.12 X10^3/uL; Eosinophils% 1.8 % (0-5); Hematocrit 35.6 % (37-47); Hemoglobin 11.7 g/dL (12.0-15.0); Lymphocyte # 2.47 X10^3/ul (0.83-4.51); Lymphocyte % 36.8 % (19-41); Mean Corp Hgb Conc 32.9 g/dL (32-36); Mean Corpuscular Hgb 29.6 pg (27.0-32.0); Mean Corpuscular Volume 90.1 fL (81-99); Mean Platelet Vol. 9.6 fl (6.2-12.0); Monocyte# 0.54 X10^3/uL; NRBC Flagged by Analyzer 0 % (0-5); Neutrophil # 3.54 X10^3/uL (2.7-7.7); Neutrophil % 52.7 % (47-70); Platelet Count 247 K/mm3 (150-450); RBC Distribution Width CV 13.4 % (11.6-14.6); RBC Distribution Width SD 43.9 fl (35.1-43.9); Red Blood Count 3.95 M/mm3 (4.2-5.4); White Blood Count 6.7 K/mm3 (4.4-11.0)
[2024-02-10 19:20] LABS: Anion Gap 4 (5-15); BUN 22 mg/dL (7-18); BUN/Creat Ratio 22.2 RATIO (10-20); Calcium,Total 8.8 mg/dL (8.5-10.1); Chloride 111 mmol/L (98-107); Creatinine, Serum 0.99 mg/dL (0.55-1.02); EST Glomerular Filtration Rate 60 mL/min (>60); Est Glom Filt Rate - Afr Amer 73 mL/min (>60); Estimated Creatinine Clearance 73.72 ml/min; Glucose 107 mg/dL (74-106); Potassium 3.8 mmol/L (3.5-5.1); Sodium Level 141 mmol/L (136-145); Troponin-I HS (w/2H Reflex) 4 pg/mL (3.0-54.0)
[2024-02-10 19:55] VITALS: BP 110/67; PULSE 68; RESP 18; O2SAT 93
[2024-02-10 20:09] LABS: D-Dimer Quantitative (DVT/PE) 0.93 FEU/ug/m (0.27-0.49)
--- NOTE | 2024-02-10 20:09 | CT_ITS ---
STUDY: CTA CHEST REASON FOR EXAM: Female, 63 years old. CP, r/o PE RADIATION DOSAGE (If Supplied By Facility): CTDIvol = ( 26.74 ) mGy, DLP = ( 529.74 ) mGycm TECHNIQUE: The examination was performed with the intravenous administration of IV 100mL [id number]-[id number]. Post-processing of the angiographic images was performed, with multiplanar reformation and 3D reconstruction. Individualized dose optimization techniques were used for this CT. COMPARISON: July 29, 2020. FINDINGS: Normal enhancement of the main pulmonary artery and right and left pulmonary arteries. Normal enhancement of the bilateral peripheral pulmonary arteries. There is no demonstrated pulmonary embolism. Minor atherosclerotic change of the aorta without evidence for aneurysm. There is no demonstrated aortic dissection. Heart is enlarged and there is multivessel coronary artery calcification Retrosternal multinodular goiter noted.. Normal hilar regions. Normal visualized trachea and bronchi. The lungs are well expanded. Normal pulmonary parenchyma. Normal pleura. Normal chest wall structures. Dorsal spine demonstrates advanced arthritic change Postsurgical changes of the stomach.. There is a small hiatal hernia. CT/CTA Chest W/WO Contrast IMPRESSION: ASHD. No acute cardiopulmonary pathology.. No evidence for pulmonary embolus Electronically Signed: Mtat Klein MD at 21:38 EST ,
[2024-02-10 20:54] LABS: Reflex Troponin-HS? (from REC) Y
[2024-02-10 21:00] VITALS: BP 121/68; PULSE 66; RESP 19; O2SAT 95
[2024-02-10 21:36] LABS: Troponin-I HS 4 pg/mL (3.0-54.0)
[2024-02-10 23:00] VITALS: BP 131/69; PULSE 65; RESP 20; O2SAT 95
[2024-02-10 23:13] VITALS: BP 131/69; PULSE 65; RESP 10; TEMP 36.4; O2SAT 97
== END 2024-02-10 23:15 | disposition home or self-care (01) ==
PROVIDERS: Emergency Provider Emergency Medicine; PCP Internal Medicine; Visit Provider Emergency Medicine
DX: R07.9 Chest pain, unspecified (principal); E11.9 Type 2 diabetes mellitus without complications; I10 Essential (primary) hypertension; E66.9 Obesity, unspecified; E78.5 Hyperlipidemia, unspecified; Z86.711 Personal history of pulmonary embolism; Z85.038 Personal history of other malignant neoplasm of large intestine; Z79.82 Long term (current) use of aspirin; Z79.899 Other long term (current) drug therapy; Z79.84 Long term (current) use of oral hypoglycemic drugs; Z79.85 Long-term (current) use of injectable non-insulin antidiabetic drugs; D50.9 Iron deficiency anemia, unspecified; Z90.49 Acquired absence of other specified parts of digestive tract; Z96.659 Presence of unspecified artificial knee joint
CPT/HCPCS: 71045; 71275; 80048; 84484; 85025; 85379; 93005; 99284; Q9967; A4216

== ENCOUNTER 2024-05-25 20:44 | Emergency (ER) | payer MEDICAID, SELFPAY ==
[2024-05-25] VITALS (11 sets, daily range): BP systolic 134–151; BP diastolic 78–82; PULSE 72–83; RESP 14–24; TEMP 36.9–37.2; O2SAT 93–98; BMI 44.9
--- NOTE | 2024-05-25 21:34 | EX.ED.DYSGE1 ---
HPI History of Present Illness Chief Complaint: General Illness [facility] Medical History (Updated 02/18/24 @ 00:02 by Background Kendall) Pulmonary embolism Iron deficiency anemia Chronic pain Septic arthritis of wrist, right Hypomagnesemia Hypokalemia Elevated LFTs Acute kidney injury Hypertension Hyperlipidemia Diabetes mellitus, type II Morbid obesity with BMI of 50.0-59.9, adult History of colon cancer Home Medications ?Medication ?Instructions ?Recorded ?Last Taken ?Type acetaminophen 325 mg tablet 650 mg PO Q6H PRN Pain 10/05/16 Unknown History aspirin 81 mg chewable tablet 81 mg PO DAILY heart health 10/05/16 05/13/20 History cyanocobalamin (vitamin B-12) 2,000 mcg PO DAILY supplement 10/05/16 05/13/20 History 2,500 mcg tablet duloxetine 60 mg capsule,delayed 60 mg PO DAILY depression 10/05/16 05/13/20 History release ergocalciferol (vitamin D2) 1,250 50,000 unit PO Q7D supplement 10/05/16 05/07/20 History mcg (50,000 unit) capsule metformin 500 mg tablet,extended 500 mg PO BID Diabetes 10/05/16 05/13/20 History release 24 hr multivitamin 1 ea PO DAILY supplement 10/05/16 05/13/20 History ondansetron HCl 4 mg tablet 4 mg PO Q8H PRN Nausea 10/05/16 Unknown History sennosides 8.6 mg-docusate sodium 1 ea PO BID stool softner 10/05/16 05/13/20 History 50 mg tablet hydrochlorothiazide 12.5 mg tablet 12.5 mg PO QDAY water pill 03/22/17 05/13/20 History famotidine 20 mg tablet 20 mg PO BID stomach 05/03/20 05/13/20 History atorvastatin 20 mg tablet 20 mg PO QHS cholesterol 05/14/20 05/13/20 History bupropion HCl 100 mg tablet,12 hr 100 mg PO BID anxiety 05/14/20 05/13/20 History sustained-release mirabegron 50 mg tablet,extended 50 mg PO DAILY bladder 05/14/20 05/13/20 History release 24 hr potassium chloride 10 mEq 1 tab PO DAILY supplement 05/14/20 05/13/20 History tablet,extended release ferrous sulfate 325 mg (65 mg 325 mg PO TIDCM 14 days #42 tabs 05/22/20 Unknown Rx iron) tablet cephalexin 500 mg capsule 500 mg PO Q6 #40 CAPSULES 08/01/22 Unknown Rx semaglutide 1 mg/dose (4 mg/3 mL) 1 mg subcut QWEEK 08/01/22 Unknown History subcutaneous pen injector (Ozempic) sulfamethoxazole 800 1 tab PO BID #20 tabs 08/01/22 Unknown Rx mg-trimethoprim 160 mg tablet (Bactrim DS) codeine sulfate 15 mg tablet 15 mg PO BID PRN cough 3 days #6 05/25/24 Unknown Rx tabs Allergy/AdvReac Type Severity Reaction Status Date / Time adhesive tape Allergy Mild rash Verified 05/25/24 20:45 Family History Mother Diabetes CAD (coronary artery disease) Father Heart disease Diabetes Surgical History S/P insertion of IVC (inferior vena caval) filter S/P cholecystectomy S/P colonoscopy History of incisional hernia repair S/P colectomy S/P repair of ventral hernia Status post knee replacement Social History Smoking Status: Never smoker alcohol intake: never EXAM Physical Exam Const Vital Signs: 05/25/24 20:45 05/25/24 21:12 05/25/24 21:15 Temperature 98.4 F Temperature Source Oral Pulse Rate 76 74 73 Respiratory Rate 19 H 24 H 22 H Blood Pressure 151/82 H Blood Pressure Mean 105 Pulse Ox 98 98 97 Oxygen Delivery Method Room Air 05/25/24 21:30 05/25/24 21:45 05/25/24 21:47 Temperature 99.0 F Temperature Source Temporal Pulse Rate 76 78 Respiratory Rate 24 H 21 H 20 H Blood Pressure 134/78 H Blood Pressure Mean 96 Pulse Ox 96 98 Oxygen Delivery Method Room Air 05/25/24 22:00 05/25/24 22:15 05/25/24 22:30 Temperature Temperature Source Pulse Rate 72 Respiratory Rate 14 19 H 19 H Blood Pressure Blood Pressure Mean Pulse Ox 95 Oxygen Delivery Method 05/25/24 22:40 05/25/24 22:45 Temperature Temperature Source Pulse Rate 83 Respiratory Rate 15 Blood Pressure 134/78 H Blood Pressure Mean 96 Pulse Ox Oxygen Delivery Method Room Air [facility] [place] Narrative Medical decision making narrative: HISTORY OF PRESENT ILLNESS: 64-year-old female presents with concern for cough. She notes this to go on for a couple of days. She notes shortness of breath as well. She endorses sick contacts her grandkids. She notes that she cough she gets left-sided chest pain. No chest pain at rest, it is not worsen by exertion. She also endorses associated chills and runny nose. She further states she is no syncope. No focal neurologic deficits. No vomiting. No diarrhea. No bleeding diathesis noted. The patient denies recent surgery in the last 4 weeks or immobilization in the last 3 days, hemoptysis, unilateral leg swelling or malignancy with treatment the last 6 months or palliative. No estrogen use noted. REVIEW OF SYSTEMS: Pertinent positives: Cough, chest pain, chills Pertinent negatives: As per HPI PHYSICAL EXAM: Nursing triage notes reviewed, Vital signs reviewed Constitutional: please see [facility] HENT: MMM Eyes: Pupils equal round and reactive to light, Extraocular muscles intact Neck: No stridor, no JVD, full neck ROM Lungs: Clear to auscultation, No wheezing or rales. No increased work of breathing, no conversational dyspnea, no accessory muscle use, no nasal flaring. No respiratory distress noted Heart: Regular rate and rhythm, No murmurs, No rubs and No gallops, 2+ distal pulses (radial, femoral, posterior tibial) in all extremities Abdomen: Soft, there is no tenderness, rigidity, rebound or guarding, no obvious peritoneal signs, no palpable pulsatile abdominal masses, no auscultated abdominal bruit : No CVAT Extremities: No edema Neuro: No new focal neurological deficits, cranial nerves II through XII intact, 5/5 strength in all present extremities. Intact sensation to light touch in all present extremities, 2+ reflexes bilateral patella tendons. Skin: No rash or lesions noted MEDICAL DECISION MAKING: Chief Complaint: As per HPI External records reviewed: Reviewed prior imaging studies Factors affecting care: History of GI bleed, type 2 diabetes, hypertension and hyperlipidemia Social determinants of health: none History obtained from others: Family Consults: none [facility] Narrative: The patient was initially hemodynamically stable, afebrile and nontoxic-appearing. Initial exam without focal cardiopulmonary abnormalities. No signs of focal consolidation. No stigmata of VTE. The patient did not appear ill or toxic. I considered the following differential diagnosis: Viral illness, pneumonia, anemia, arrhythmia, significant electrolyte abnormality, ACS, PE I considered pulmonary embolism I thought this diagnosis is less likely given the patient's low risk Wells score. ALL IMAGES (IF OBTAINED) HAVE BEEN PERSONALLY REVIEWED AND INTERPRETED BY MYSELF. EKG with normal sinus rhythm rate of 75, left axis deviation, normal intervals High-sensitivity troponin is negative, no evidence of myocardial ischemia (without chest pain with a viral prodrome is sufficient to rule out ACS) CBC with no leukocytosis, noted mild anemia (baseline), no thrombocytopenia BMP without evidence of significant electrolyte abnormalities, no anion gap, no acute kidney injury. I have personally reviewed the patient's chest x-ray. Chest x-ray is unremarkable for pulmonary edema, pneumothorax, pneumonia or focal cardiopulmonary abnormality. COVID/RSV/flu is negative The etiology patient complaints unclear. Given sick contacts her grandchildren and viral URI prodrome she is active some from a viral upper respiratory tract infection. She was ambulated here in the emergency department to maintain saturation above 88%. There is no benefit to hospitalization at this time. Patient is appropriate discharge home. Encouraged Tylenol ibuprofen and give prescription for codeine for symptomatic cough relief. Strict return precautions were discussed. Patient made me aware that she is a home pulse oximeter. I alerted her to monitor her pulse ox. She drops to 88% consistently she should return to the ED immediately. She agreed The patient and/or family, caregivers express understanding. The patient and/or family, caregivers agrees with the plan. Shared decision making: I will have a discussion with the patient and or visitors regarding risk/benefits of further testing or admission. They will be made aware of of the risk/benefits inherent in this decision they will be given the opportunity to voice understanding. Total critical care time today provided was at least 0 minutes. This excludes separately billable procedures. Critical care time (if documented) is secondary to the patient having high probability of clinically significant/life threatening deterioration in the patient's condition which required my urgent intervention. Impression: 1. Viral URI 2. Cough Dispo: Discharge This note was generated with [employer] dictation software. It may contain incorrect words, spelling, and punctuation that were not noted in review of the chart prior to signing. Lab Data Labs: Laboratory Results - last 24 hr 03/13/25 22:28 WBC 8.3 RBC 4.03 L Hgb 11.7 L Hct 36.1 L MCV 89.6 MCH 29.0 MCHC 32.4 RDW Std Deviation 42.6 RDW Coeff of Chris 12.9 Plt Count 208 MPV 9.3 Immature Gran % (Auto) 0.700 Neut % (Auto) 63.8 Lymph % (Auto) 26.1 [place] % (Auto) 7.4 Eos % (Auto) 1.8 Baso % (Auto) 0.2 Absolute Neuts (auto) 5.3 Absolute Lymphs (auto) 2.16 Nucleated RBC % 0 Sodium 142 Potassium 4.3 Chloride 105 Carbon Dioxide 23.7 Anion Gap 13 BUN 13 Creatinine 0.79 Estim Creat Clear Calc 94.48 Est GFR (MDRD) Non-Af 84 BUN/Creatinine Ratio 16.5 Glucose 121 H Calcium 9.3 Troponin T High Sens 7 Radiography Diagnostic Testing: Clinical Impression(s) from Imaging Studies Chest X-Ray 05/25/24 22:15 IMPRESSION: No acute cardiopulmonary process. Reading [facility] Discharge Plan Triage Chief Complaint: General Illness ED Provider: Feng Morales Dx/Rx/DC Orders Instructions: ED URI, Viral, No Abx (Adult) Prescriptions: New codeine sulfate 15 mg tablet 15 mg PO BID PRN (Reason: cough) 3 Days Qty: 6 0RF No Action hydrochlorothiazide 12.5 mg tablet 12.5 mg PO QDAY ferrous sulfate 325 mg (65 mg iron) tablet 325 mg PO TIDCM 14 Days Qty: 42 1RF metformin 500 MG tablet 500 mg PO BID multivitamin 1 EACH tablet 1 ea PO DAILY acetaminophen 325 MG tablet 650 mg PO Q6H PRN (Reason: Pain) ondansetron HCl 4 MG tablet 4 mg PO Q8H PRN (Reason: Nausea) sennosides-docusate sodium 1 EACH tablet 1 ea PO BID aspirin 81 MG tablet,chewable 81 mg PO DAILY ergocalciferol (vitamin D2) 50,000 UNIT capsule 50,000 unit PO Q7D Rx Instructions: every wednesday duloxetine 60 MG capsule,delayed release(DR/EC) 60 mg PO DAILY cyanocobalamin (vitamin B-12) 2,500 MCG tablet 2,000 mcg PO DAILY famotidine 20 MG tablet 20 mg PO BID atorvastatin 20 MG tablet 20 mg PO QHS potassium chloride 10 MEQ tablet extended release 1 tab PO DAILY Patient Comments: Take 1 tablet by mouth daily with breakfast. bupropion HCl 100 MG tablet sustained-release 12 hr 100 mg PO BID mirabegron 50 MG tablet extended release 24 hr 50 mg PO DAILY Ozempic 1 mg/dose (4 mg/3 mL) pen injector 1 mg SUBCUT QWEEK Rx Instructions: mondays sulfamethoxazole-trimethoprim [Bactrim DS] 800-160 mg tablet 1 tab PO BID Qty: 20 0RF cephalexin 500 mg capsule 500 mg PO Q6 Qty: 40 0RF Primary Care Provider: Radha Alcala Referrals: Radha Alcala MD [Primary Care Provider] - Activity Restrictions/Additional Instructions: Thank you for trusting us with your care today! Your labs images were reassuring. Specifically no sign of abnormal heart rhythms, heart damage, pneumonia, COVID RSV or flu. You are likely suffering from a viral upper respiratory tract infection. These resolve in 7 to 14 days without intervention. Please drink plenty of fluids. Please take Tylenol (2 pills, 650 mg), ibuprofen (2 pills, 400 mg) every 6 hours as needed for pain and fever control. Please take codeine as needed for cough. Please return to the emergency department if your symptoms change or worsen. Please follow with your primary care physician for further outpatient evaluation and management. Print Language: Kosovan Disposition Disposition: Home, Self Care
--- NOTE | 2024-05-25 21:56 | EKG12_ITS ---
Test Reason : DYSRHYTHMIA Blood Pressure : */* mmHG Vent. Rate : 75 BPM Atrial Rate : 75 BPM P-R Int : 182 ms QRS Dur : 76 ms QT Int : 368 ms P-R-T Axes : 37 -16 31 degrees QTcB Int : 410 ms Normal sinus rhythm Nonspecific ST abnormality Abnormal ECG Confirmed by BRITTA ACOSTA, RACHELE ([id number]), senior editor TAMICA RUVALCABA ([id number]) on 05/29/2024 10:50:00 AM Referred By: Feng Morales Confirmed By: RACHELE CALLEJAS MD
--- NOTE | 2024-05-25 22:15 | RAD_ITS ---
PROCEDURE: CHEST 1 VIEW (PORTABLE) 05/25/2024 REASON FOR EXAM: CHEST PAIN TECHNIQUE: Frontal view of the chest. COMPARISON: 02/10/2024 FINDINGS: The heart size is normal. No focal consolidation. No pneumothorax. No pleural effusion. RAD/Chest 1 View (Portable) IMPRESSION: No acute cardiopulmonary process. Reading [facility]
[2024-05-25 22:34] LABS: Absolute Lymphocyte Count 2.16 X10^3/uL (0.83-4.51); Absolute Neutrophil Count 5.3 X10^3/uL (2.0-7.7); Basophil# 0.02 X10^3/uL; Basophil% 0.2 % (0-1); Eosinophil# 0.15 X10^3/uL; Eosinophils% 1.8 % (0-5); Hematocrit 36.1 % (37-47); Hemoglobin 11.7 g/dL (12.0-15.0); Lymphocyte # 2.16 X10^3/ul (0.83-4.51); Lymphocyte % 26.1 % (19-41); Mean Corp Hgb Conc 32.4 g/dL (32-36); Mean Corpuscular Volume 89.6 fL (81-99); Mean Platelet Vol. 9.3 fl (6.2-12.0); Monocyte# 0.61 X10^3/uL; Monocyte% 7.4 % (0-10); NRBC Flagged by Analyzer 0 % (0-5); Neutrophil # 5.27 X10^3/uL (2.7-7.7); Neutrophil % 63.8 % (47-70); Platelet Count 208 K/mm3 (150-450); RBC Distribution Width CV 12.9 % (11.6-14.6); RBC Distribution Width SD 42.6 fl (35.1-43.9); Red Blood Count 4.03 M/mm3 (4.2-5.4); White Blood Count 8.3 K/mm3 (4.4-11.0)
[2024-05-25] MEDS: Acetaminophen/Codeine #3 Tablet 1 TABLET PO (22:44)
[2024-05-25] MEDS: 0.9% Normal Saline (500mL Bag) 500 ML 999 ML IV (22:44)
[2024-05-25 22:55] LABS: Troponin T High Sensitivity 7 ng/L (<=14)
[2024-05-25 22:56] LABS: Anion Gap 13 (5-15); BUN 13 mg/dL (4-19); BUN/Creat Ratio 16.5 RATIO (10-20); Calcium,Total 9.3 mg/dL (7.6-11.0); Carbon Dioxide 23.7 mmol/L (21.0-32.0); Chloride 105 mmol/L (98-108); Creatinine, Serum 0.79 mg/dL (0.70-1.20); EST Glomerular Filtration Rate 84 (>60); Estimated Creatinine Clearance 94.48 ml/min (50-250); Glucose 121 mg/dL (70-99); Potassium 4.3 mmol/L (3.3-5.1); Sodium Level 142 mmol/L (133-145)
[2024-05-26 00:08] VITALS: BP 134/78; PULSE 68; RESP 18; TEMP 37.2; O2SAT 93
== END 2024-05-26 00:10 | disposition home or self-care (01) ==
PROVIDERS: Emergency Provider Emergency Medicine; PCP Internal Medicine; Referring Provider Emergency Medicine; Visit Provider Emergency Medicine
DX: R05.9 Cough, unspecified (principal); E11.9 Type 2 diabetes mellitus without complications; J06.9 Acute upper respiratory infection, unspecified; I10 Essential (primary) hypertension; E78.5 Hyperlipidemia, unspecified; Z79.82 Long term (current) use of aspirin; Z85.038 Personal history of other malignant neoplasm of large intestine; Z79.899 Other long term (current) drug therapy; Z90.49 Acquired absence of other specified parts of digestive tract; Z96.659 Presence of unspecified artificial knee joint; Z79.85 Long-term (current) use of injectable non-insulin antidiabetic drugs; Z79.84 Long term (current) use of oral hypoglycemic drugs
CPT/HCPCS: 71045; 80048; 84484; 85025; 87631; 93005; 96360; 99283; A4216

== ENCOUNTER 2024-06-04 09:25 | Inpatient (IN) | payer MEDICAID, SELFPAY ==
[2024-06-04] VITALS (9 sets, daily range): BP systolic 101–131; BP diastolic 54–76; PULSE 60–78; RESP 15–22; TEMP 36.4–37.3; O2SAT 94–100; BMI 44.2; BMI 40.6
--- NOTE | 2024-06-04 09:56 | EX.ED.DYSGE1 ---
HPI History of Present Illness Chief Complaint: Abn Labs Detail of Chief Complaint: Dyspnea, dyspnea on exertion, cough and elevated D-dimer Informant: patient and spouse/S.O. Onset/Context/Timing Onset: Weeks (Initial onset of illness earlier this month.) Context: Gradual Onset Timing: Continuous and Waxes and wanes Quality: Dyspnea with dyspnea on exertion past several days Location: Respiratory Current Severity: Mild Maximum Severity: Severe Worsened by: Walking 5 to 10 feet Relieved by: Nothing Associated Symptoms Associated Symptoms: Nonproductive cough, right thigh pain, left anterior leg pain, elevated D-d Narrative Narrative: Patient is a 64-year-old woman. She was seen here on May 25. She was diagnosed at that time with upper respiratory infection. She was ill prior to that. She thought she had a sinus infection. She saw her primary care physician on June 02. Blood work revealed an elevated D-dimer even after correction for age. Had a chest x-ray at that time that was interpreted as negative. Patient presents because of right thigh pain, anterior left leg pain with elevated D-dimer. She has prior history of PE left side and DVT. She does report shortness of breath at rest and increased shortness with walking. She states she can only walk 5 to 10 feet before becoming quite dyspneic and having to stop. A month ago she was able to walk quite a distance without shortness of breath. She denies chest discomfort with the dyspnea. She denies pleuritic pain. She denies rhinorrhea, congestion postnasal drainage. Denies sore throat. She does have a cough that is nonproductive. She denies orthopnea. She states that her left leg is always larger in size than her right. She denies symptoms of claudication. She does have a [place] filter in place. Prior similar symptoms: Yes Recent Illness/Hospitalization: Yes [facility] Medical History (Updated 06/04/24 @ 11:[address] Keith Gibson MD) Pulmonary embolism Iron deficiency anemia Chronic pain Septic arthritis of wrist, right Hypomagnesemia Hypokalemia Elevated LFTs Acute kidney injury Hypertension Hyperlipidemia Diabetes mellitus, type II Morbid obesity with BMI of 50.0-59.9, adult History of colon cancer Home Medications ?Medication ?Instructions ?Recorded ?Last Taken ?Type acetaminophen 325 mg tablet 650 mg PO Q6H PRN Pain 07/24/17 Unknown History aspirin 81 mg chewable tablet 81 mg PO DAILY heart health 10/05/16 05/13/20 History cyanocobalamin (vitamin B-12) 2,000 mcg PO DAILY supplement 10/05/16 05/13/20 History 2,500 mcg tablet duloxetine 60 mg capsule,delayed 60 mg PO DAILY depression 10/05/16 05/13/20 History release ergocalciferol (vitamin D2) 1,250 50,000 unit PO Q7D supplement 10/05/16 05/07/20 History mcg (50,000 unit) capsule metformin 500 mg tablet,extended 500 mg PO BID Diabetes 10/05/16 05/13/20 History release 24 hr multivitamin 1 ea PO DAILY supplement 10/05/16 05/13/20 History ondansetron HCl 4 mg tablet 4 mg PO Q8H PRN Nausea 10/05/16 Unknown History sennosides 8.6 mg-docusate sodium 1 ea PO BID stool softner 10/05/16 05/13/20 History 50 mg tablet hydrochlorothiazide 12.5 mg tablet 12.5 mg PO QDAY water pill 03/22/17 05/13/20 History famotidine 20 mg tablet 20 mg PO BID stomach 05/03/20 05/13/20 History atorvastatin 20 mg tablet 20 mg PO QHS cholesterol 05/14/20 05/13/20 History bupropion HCl 100 mg tablet,12 hr 100 mg PO BID anxiety 05/14/20 05/13/20 History sustained-release mirabegron 50 mg tablet,extended 50 mg PO DAILY bladder 05/14/20 05/13/20 History release 24 hr potassium chloride 10 mEq 1 tab PO DAILY supplement 05/14/20 05/13/20 History tablet,extended release ferrous sulfate 325 mg (65 mg 325 mg PO TIDCM 14 days #42 tabs 05/22/20 Unknown Rx iron) tablet cephalexin 500 mg capsule 500 mg PO Q6 #40 CAPSULES 08/01/22 Unknown Rx semaglutide 1 mg/dose (4 mg/3 mL) 1 mg subcut QWEEK 08/01/22 Unknown History subcutaneous pen injector (Ozempic) sulfamethoxazole 800 1 tab PO BID #20 tabs 08/01/22 Unknown Rx mg-trimethoprim 160 mg tablet (Bactrim DS) codeine sulfate 15 mg tablet 15 mg PO BID PRN cough 3 days #6 05/25/24 Unknown Rx tabs acetaminophen 120 mg-codeine 12 5 ml PO Q6H PRN pain 5 days #80 mL 05/26/24 Unknown Rx mg/5 mL (5 mL) oral solution hydrocodone-homatropine 5 mg-1.5 5 ml PO Q4H PRN cough 4 days #80 mL 05/26/24 Unknown Rx mg/5 mL (5 mL) oral syrup (Hycodan) hydrocodone-homatropine 5 mg-1.5 5 ml PO Q6H 4 days #80 mL 05/27/24 Unknown Rx mg/5 mL oral syrup (Hydromet) Allergy/AdvReac Type Severity Reaction Status Date / Time adhesive tape Allergy Mild rash Verified 06/04/24 09:30 Family History Mother Diabetes CAD (coronary artery disease) Father Heart disease Diabetes Surgical History (Updated 06/04/24 @ 11:[address] Keith Gibson MD) S/P insertion of IVC (inferior vena caval) filter S/P cholecystectomy S/P colonoscopy History of incisional hernia repair S/P colectomy S/P repair of ventral hernia Status post knee replacement Social History Smoking Status: Never smoker alcohol intake: never ROS ROS ED Constitutional Constitutional ED: Reports chills; Denies fever(s), subjective or sweats Eyes Eyes: Denies blurry vision or change in vision ENT ENT ED: Denies ear pain, rhinorrhea or sore throat Cardiovascular Cardiovascular: Denies chest pain, orthopnea, palpitations, paroxysmal nocturnal dyspnea or racing heartbeat Respiratory/Chest Respiratory/Chest: Reports cough, dyspnea and dyspnea on exertion; Denies orthopnea, paroxysmal nocturnal dyspnea or sputum Gastrointestinal Gastrointestinal: Denies abdominal pain, diarrhea, nausea or vomiting Genitourinary Genitourinary ED: Denies dysuria, hematuria or urinary frequency Musculoskeletal Musculoskeletal: Reports other Details: Anterior to medial right thigh pain and anterior mid to proximal left leg pain. ; Denies arthralgias, back pain or myalgias Integumentary Denies abscess or Abrasions Neurologic Neurologic: Reports weakness; Denies headache(s) or paresthesias Psychiatric Psychiatric: Denies anxiety or depression Endocrine Endocrinology: Denies cold intolerance or heat intolerance Hematologic/Lymphatic Hematologic/Lymphatic: Reports systems reviewed and no addt'l complaints, except as documented EXAM Physical Exam Const Vital Signs: 06/04/24 09:27 06/04/24 09:30 06/04/24 09:46 Temperature 98 F 98.0 F Temperature Source Temporal Oral Pulse Rate 77 77 Respiratory Rate 22 H 22 H Respiratory Pattern Tachypnea Blood Pressure 101/73 101/73 Blood Pressure Mean 82 82 Pulse Ox 100 100 Oxygen Delivery Method Room Air Room Air 06/04/24 11:30 06/04/24 11:34 Temperature 97.9 F 97.9 F Temperature Source Tympanic Pulse Rate 60 60 Respiratory Rate 15 15 Respiratory Pattern Blood Pressure 131/76 H 131/76 H Blood Pressure Mean 94 94 Pulse Ox 96 96 Oxygen Delivery Method Room Air Positive well nourished and well developed Constitutional Narrative: Patient appears pale. She is tachypneic. She does not look well. She has mild conversational dyspnea. General Appearance ED: well developed and pallor HEENT Reports dry mucous membranes HEENT Narrative: Head is atraumatic normocephalic. Ears normal. Nares patent. Posterior pharynx is normal. Mouth ED: Yes dry mucous membranes Mouth: dry mucous membranes Eyes PERRL and EOMs intact bilaterally General Eye ED: Yes pale conjunctiva; Negative for scleral icterus Neck no lymphadenopathy, supple and no JVD Neck Narrative: Trachea is midline. There is no inspiratory x-ray stridor. Chest Wall palpation of chest normal Resp No normal respiratory effort and No clear to auscultation bilaterally Resp Narrative: Patient with conversational dyspnea and mild use of accessory muscles. Auscultation: rales right (There is question of egophony. There is increased vocal fremitus.) lower Cardio regular rate, regular rhythm, S1 normal heart sound, S2 normal heart sound and no murmurs GI normal to inspection, nondistended, normoactive bowel sounds, non-tender, non-distended and no masses; Negative for hepatosplenomegaly Back/Spine no CVA tenderness Extremity Negative for normal to inspection Extremity Narrative: Patient has what appears to be superficial phlebitis anterior left leg. There is pain along the abductor canal on the right. The left lower extremity is swollen in comparison to the right at the thigh and leg. Neuro oriented x3, CN's II-XII intact bilaterally and no sensory deficits noted Neuro Narrative: Patient is awake but not necessarily alert. Psych mental status grossly normal Skin no rashes or lesions noted, no wounds and skin turgor normal General Skin Exam: pallor; Negative for jaundice MDM MDM MDM Narrative Medical decision making narrative: Patient does not appear well. With prior history of PE DVT elevated D-dimer and concern for DVT patient is at moderate risk therefore venous duplex study was ordered of the right lower extremity and the the left has evidence of a superficial phlebitis. Because of the abnormal oscillatory findings with egophony increased vocal fremitus chest x-ray was obtained to assess for pneumonia. Appropriate blood work was obtained to assess for endorgan dysfunction. Electrolyte panel specifically because patient is diabetic to assess glucose, CO2 anion gap and renal function in the event she would need anticoagulation. CBC to assess H&H since she appears pale and does have history of iron deficiency anemia. EKG to assess for cardiac ischemia since she is a woman in her sixth decade with diabetes and may have atypical presentation for cardiac ischemia. Since patient has DVT both right and left lower extremity and PE and spite of [place] filter she was anticoagulated with heparin. Since she has conversational dyspnea on becomes quite dyspneic walking 5 to 10 feet even though she does not desaturate in my opinion patient needs to be admitted and heparin was chosen in the event that she would require intervention by vascular. She was informed of my interpretation of the CAT scan. History & Record Review Additional record(s) reviewed:: Prior outpatient record (Reviewed office visit notes for June 02 using patient's [employer] access. Also reviewed labs.), Prior ED visit (ER visit May 25.) and Prior labs Lab Data Attestation: I reviewed the patient's lab results. Lab results narrative: CBC is remarkable for anemia with normal indices. Patient's hemoglobin has varied between 11.7-10.2 dating back to January 2024. Comprehensive metabolic panel reveals a glucose of 156. Patient has a nonanion gap acidosis. Labs: Laboratory Results - last 24 hr 06/04/24 10:12 WBC 11.0 RBC 3.52 L Hgb 10.2 L Hct 31.9 L MCV 90.6 MCH 29.0 MCHC 32.0 RDW Std Deviation 43.1 RDW Coeff of Chris 13.1 Plt Count 233 MPV 9.7 Immature Gran % (Auto) 1.900 H Neut % (Auto) 76.6 H Lymph % (Auto) 10.8 L [place] % (Auto) 9.0 Eos % (Auto) 1.3 Baso % (Auto) 0.4 Absolute Neuts (auto) 8.4 H Absolute Lymphs (auto) 1.18 Nucleated RBC % 0 Sodium 136 Potassium 3.6 Chloride 101 Carbon Dioxide 19.9 L Anion Gap 15 BUN 12 Creatinine 0.91 Estim Creat Clear Calc 81.29 Est GFR (MDRD) Non-Af 70 BUN/Creatinine Ratio 13.4 Glucose 156 H Lactic Acid < 1.0 Calcium 9.1 Total Bilirubin 0.81 AST 17 ALT 9 Alkaline Phosphatase 112 H Total Protein 7.3 Albumin 3.8 Globulin 3.6 Albumin/Globulin Ratio 1.1 Radiography Chest X-Ray - ED: 2 View and Read by ED Physician (Interpreted by me at 1029 is negative for any acute pathology. Patient has breast implants. Cardiac silhouette and size normal. There is some minimal chronic changes noted. [place] is not abnormal and there is no widening the mediastinum. There is mild degenerative changes noted the dorsal spine.) Diagnostic Testing: Clinical Impression(s) from Imaging Studies Chest X-Ray 06/04/24 10:15 IMPRESSION: Minimal discoid atelectasis is seen of the left lung base, near the costophrenic angle. Lungs are hypoinflated, but otherwise appear clear of acute disease. No pleural effusion or pneumothorax is seen. The cardiomediastinal silhouette is stable, without evidence of cardiomegaly. Mild thoracic spine degenerative changes are seen, along with DISH. No acute osseous process is seen. Reading Location: [address] The radiology report was read. EKG Initial EKG: Attestation: I personally reviewed and interpreted this EKG as follows: Interpretation: Sinus Rhythm (Rate is 67. There is low voltage which may be due to body habitus. TX interval is under sick 6 ms. QS duration 80 ms. QT duration 286 ms. [place] is normal. There is nonspecific changes noted laterally there is also artifact in the limb leads.) Management Discussion w/another healthcare provider: Hospitalist (Spoke with Dr. Banerjee. Patient will be a full admit to PCU) Treatment and Re-Evaluation :: Amatory pulse ox was noted. Surprised that she did not become desaturated because she was tachypneic and has conversational dyspnea. CTA per my review reveals pulm embolus on the right side multiple branches. In light of this we will contact hospitalist. Will anticoagulant heparin. Troponin and BNP are pending. Discharge Plan Dx/Rx/DC Orders Clinical Impression: Pulmonary embolus, Acute deep vein thrombosis (DVT) of femoral vein of right lower extremity, Acute deep vein thrombosis (DVT) of popliteal vein of right lower extremity, Thrombosis of left saphenous vein, BMI 40.0-44.9, adult, Superficial phlebitis of left leg, Acute deep vein thrombosis (DVT) of right peroneal vein, S/P insertion of IVC (inferior vena caval) filter, Diabetes mellitus, type II, Hypertension, Acute respiratory distress Disposition Disposition: Acute Care Hospital [facility]
--- NOTE | 2024-06-04 09:57 | EKG12_ITS ---
Test Reason : GENERAL Blood Pressure : */* mmHG Vent. Rate : 67 BPM Atrial Rate : 67 BPM P-R Int : 166 ms QRS Dur : 80 ms QT Int : 386 ms P-R-T Axes : 65 -16 183 degrees QTcB Int : 407 ms Normal sinus rhythm Low voltage QRS Nonspecific ST abnormality Abnormal QRS-T angle, consider primary T wave abnormality Abnormal ECG Confirmed by CORY ACOSTA, MOSES ([id number]), image editor GEE CEDENO ([id number]) on 06/05/2024 8:19:14 AM Referred By: Confirmed By: MOSES RAY MD
--- NOTE | 2024-06-04 09:57 | VDLE_ITS ---
Reason For Study Reason For Study: Swelling RLE RIGHT LEFT Rt CFV, Rt FV, Rt POPV, Rt T/P Trunk, Rt GastrocV, Rt SVT noted at Lt SFJ right at deep junction but not PTV, Rt PeroV, and Rt SoleusV are DILATED and NON extending into it. COMPRESSIBLE consistent with acute DVT. Procedure This is a venous duplex using B-mode, color flow and spectral Doppler. Exam performed portable in ED. A preliminary report was called and/or faxed to DR. Gibson. VL/Venous Duplex US, Unilateral Interpretation Summary Acute deep vein thrombosis noted in right common femoral vein, femoral vein, po pliteal vein, tibioperoneal trunk vein, gastrocnemius vein, posterior tibial vein, peroneal vein, soleus vein. Acute superficial vein thrombosis noted in left saphenofemoral junction Ordering Physician: Keith Gibson Referring Physician: Radha Alcala Performed By: Alka Lugo, FRANTZ, RVT
--- NOTE | 2024-06-04 10:15 | RAD_ITS ---
EXAM: CHEST PA AND LATERAL CLINICAL HISTORY: COUGH, DYSPNEA ON EXERTION, RALES RLL POSTERIORLY COMPARISON: Chest x-ray 05/25/2024. TECHNIQUE: PA and lateral views of the chest obtained. RAD/Chest PA and Lateral IMPRESSION: Minimal discoid atelectasis is seen of the left lung base, near the costophreni c angle. Lungs are hypoinflated, but otherwise appear clear of acute disease. No pleural effusion or pneumothorax is seen. The cardiomediastinal silhouette is stable, without evidence of cardiomegaly. Mild thoracic spine degenerative changes are seen, along with DISH. No acute o sseous process is seen. Reading Location: [id number]
[2024-06-04 10:47] LABS: Absolute Lymphocyte Count 1.18 X10^3/uL (0.83-4.51); Absolute Neutrophil Count 8.4 X10^3/uL (2.0-7.7); Basophil# 0.04 X10^3/uL; Basophil% 0.4 % (0-1); Eosinophil# 0.14 X10^3/uL; Eosinophils% 1.3 % (0-5); Hematocrit 31.9 % (37-47); Hemoglobin 10.2 g/dL (12.0-15.0); Lymphocyte # 1.18 X10^3/ul (0.83-4.51); Lymphocyte % 10.8 % (19-41); Mean Corpuscular Volume 90.6 fL (81-99); Mean Platelet Vol. 9.7 fl (6.2-12.0); Monocyte# 0.99 X10^3/uL; NRBC Flagged by Analyzer 0 % (0-5); Neutrophil % 76.6 % (47-70); Platelet Count 233 K/mm3 (150-450); RBC Distribution Width CV 13.1 % (11.6-14.6); RBC Distribution Width SD 43.1 fl (35.1-43.9); Red Blood Count 3.52 M/mm3 (4.2-5.4)
[2024-06-04 10:48] LABS: ALB/GLOB Ratio 1.1 RATIO (0.9-2.4); AST(SGOT) 17 U/L (<=31); Alanine Aminotransfer ALT/SGPT 9 U/L (<=34); Albumin, Serum 3.8 g/dL (3.4-4.8); Alkaline Phosphatase 112 U/L (35-104); Anion Gap 15 (5-15); BUN 12 mg/dL (4-19); BUN/Creat Ratio 13.4 RATIO (10-20); Calcium,Total 9.1 mg/dL (7.6-11.0); Carbon Dioxide 19.9 mmol/L (21.0-32.0); Chloride 101 mmol/L (98-108); Creatinine, Serum 0.91 mg/dL (0.70-1.20); EST Glomerular Filtration Rate 70 (>60); Estimated Creatinine Clearance 81.29 ml/min (50-250); Globulin 3.6 g/dL (2.2-4.2); Glucose 156 mg/dL (70-99); Potassium 3.6 mmol/L (3.3-5.1); Protein, Total 7.3 g/dL (5.9-8.4); Sodium Level 136 mmol/L (133-145); Total Bilirubin 0.81 mg/dL (0.00-1.30)
[2024-06-04 10:53] LABS: Lactic Acid < 1.0 mmol/L (0.0-2.0)
--- NOTE | 2024-06-04 11:16 | CT_ITS ---
PROCEDURE: CTA CHEST W/WO CONTRAST 06/04/2024 REASON FOR EXAM: DYSPNEA ON EXERTION, BILATERAL DVT, METABOLIC ACID TECHNIQUE: CTA axial imaging of the chest with intravenous contrast. Coronal and Sagittal reconstruction series were provided. 3D, 3D post processing, 3D reconstructions, Maximum intensity projection (MIPs) Volume rendering and Shaded surface rendering was provided. PATIENT PREPARATION: Per protocol CONTRAST: Isovue 370 VOLUME: 87mL. One or more dose reduction techniques were used (e.g., Automated exposure control, adjustment of the mA and/or kV according to patient size, use of iterative reconstruction technique). RADIATION DOSE SUMMARY: CTDlvol: 36.54 mGy DLP: 920.66 mGycm. COMPARISON: Chest x-ray 06/04/[address] angiogram 02/10/2024. FINDINGS: A small hiatal hernia is seen. Postsurgical changes of the stomach are seen. Findings suggestive of thyromegaly. Also, hypodense nodule or nodules seen in the posterior right thyroid lobe. Small peripherally calcified nodule seen of the left posterior thyroid lobe. Lymph nodes: No significant adenopathy is seen. Heart: At least moderate coronary artery calcification is seen. No pericardial effusion is noted. Thoracic Aorta: No aortic dilation is seen in visualized areas. Pulmonary Vessels: No pulmonary embolism is seen. Lungs and Airways: A left lower lobe posterior basal soft tissue density is seen, with hypodense center. Differential diagnosis includes Almeida's hump (associated with infarct) and infection (including small abscess). A neoplastic process is much less likely given the absence of this finding on the CT of 02/10/2020. Pleura: No pleural effusion or pneumothorax is seen. Upper Abdomen: No acute upper abdominal process is noted. Bones: Mild thoracic spine degenerative changes noted, along with extensive DISH. CT/CTA Chest W/WO Contrast IMPRESSION: 1. A left lower lobe posterior basal soft tissue density is seen, with hypodens e center. Differential diagnosis includes Almeida's hump (associated with infarct) and infection (including small abscess ). A neoplastic process is much less likely given the absence of this finding on the CT of 02/10/2020. 2. No evidence of pulmonary embolism is otherwise noted. 3. Hiatal hernia. 4. Apparent thyromegaly. Bilateral thyroid nodules. If not already obtained, consider thyroid sonography. 5. At least moderate coronary artery calcification is noted. Reading Location: [id number]
--- NOTE | 2024-06-04 11:54 | PCM.HP.STD ---
[facility] Date of Admission: 06/04/24 Date of Service: 06/04/24 Chief Complaint: Complaint of 2 and half weeks of cough, URI and abnormal lab last, bilateral leg pain [facility] Narrative AISHA MA, is a 64 F came to ED with abnormal D-dimer level ordered by PCP on 06/03/2024 yesterday. She has symptoms of sinus drainage,, congestion, rhinorrhea, predominantly dry cough but occasionally brings up phlegm for 2.5 weeks. After that she got bilateral leg pain with cramps therefore saw her PCP yesterday and ordered D-dimer. In ED, she had venous duplex which shows diffuse right lower extremity DVT from ground distally in left saphenofemoral junction venous thrombosis. Denies fever or chills. She had history of PE while admitted for 4 weeks in [facility] And had GI bleed too. She had IVC filter during that hospitalization in 2017. After that she was discharged to longterm and she took blood thinner only for 1 to 2 weeks, there is an unclear. As per the patient, her IVC filter is also tilted and supposed to be removed but not able to remove. In ED, she was tachypneic and low BP in the beginning but now normal. No hypoxia. CTPA was done which is negative for PE. Patient started on Lovenox on milligram per KG body weight and vascular surgeon consulted [facility] Medical History Pulmonary embolism Iron deficiency anemia Chronic pain Septic arthritis of wrist, right Hypomagnesemia Hypokalemia Elevated LFTs Acute kidney injury Hypertension Hyperlipidemia Diabetes mellitus, type II Morbid obesity with BMI of 50.0-59.9, adult History of colon cancer Home Medications ?Medication ?Instructions ?Recorded ?Last Taken ?Type aspirin 81 mg chewable tablet 81 mg PO DAILY heart health 10/05/16 05/13/20 History ergocalciferol (vitamin D2) 1,250 50,000 unit PO Q7D supplement 10/05/16 05/07/20 History mcg (50,000 unit) capsule multivitamin 1 ea PO DAILY supplement 10/05/16 05/13/20 History ondansetron HCl 4 mg tablet 4 mg PO Q8H PRN Nausea 10/05/16 Unknown History sennosides 8.6 mg-docusate sodium 1 ea PO BID stool softner 10/05/16 05/13/20 History 50 mg tablet hydrochlorothiazide 12.5 mg tablet 12.5 mg PO QDAY water pill 03/22/17 05/13/20 History famotidine 20 mg tablet 20 mg PO BID stomach 05/03/20 05/13/20 History atorvastatin 20 mg tablet 20 mg PO QHS cholesterol 05/14/20 05/13/20 History mirabegron 50 mg tablet,extended 50 mg PO DAILY bladder 05/14/20 05/13/20 History release 24 hr potassium chloride 10 mEq 1 tab PO DAILY supplement 05/14/20 05/13/20 History tablet,extended release acetaminophen 500 mg tablet 1,000 mg PO Q6H PRN pain 06/04/24 Unknown History bupropion HCl 150 mg tablet,12 hr 150 mg PO BID 06/04/24 Unknown History sustained-release cholecalciferol (vitamin D3) 50 50 mcg PO DAILY 06/04/24 Unknown History mcg (2,000 unit) tablet cyanocobalamin (vitamin B-12) 5,000 mcg PO DAILY 06/04/24 Unknown History 5,000 mcg capsule dapagliflozin propanediol 5 mg 5 mg PO DAILY 06/04/24 Unknown History tablet (Farxiga) doxycycline hyclate 100 mg capsule 100 mg PO BID 06/04/24 06/03/24 History duloxetine 30 mg capsule,delayed 30 mg PO DAILY 06/04/24 Unknown History release ferrous sulfate 325 mg (65 mg 325 mg PO BIDCM 06/04/24 Unknown History iron) tablet hydrocodone-homatropine 5 mg-1.5 5 ml PO Q6H PRN cough 06/04/24 06/04/24 History mg/5 mL oral syrup (Hydromet) levonorgestrel (Mirena) 1 device intrauterine 06/04/24 Unknown History sumatriptan succinate 50 mg tablet 50 mg PO DAILY PRN migraine 06/04/24 Unknown History headache Allergy/AdvReac Type Severity Reaction Status Date / Time adhesive tape Allergy Mild rash Verified 06/04/24 09:30 Family History Mother Diabetes CAD (coronary artery disease) Father Heart disease Diabetes Surgical History S/P insertion of IVC (inferior vena caval) filter S/P cholecystectomy S/P colonoscopy History of incisional hernia repair S/P colectomy S/P repair of ventral hernia Status post knee replacement Social History Smoking Status: Never smoker alcohol intake: never ROS ROS Narrative Constitutional: Mild fatigue and weakness. No fever. HEENT: URI symptoms as described in HPI. Reports systems reviewed and no addt'l complaints, except as documented Respiratory/Chest: Mild short of breath at rest, increased on walking for last couple days. Can only walk 5 to 10 feet before dyspnea. CVS: No chest pain pressure or tightness Gastrointestinal: Denies coffee ground emesis, hematemesis or vomiting Genitourinary: Denies burning urination or new urinary tract symptoms Musculoskeletal: Both lower leg muscle pain and cramps. Rest as described in HPI No acute injury Neurologic: Denies seizure-like symptoms. skin: No ulcer. No rash Endocrinology: Reports systems reviewed and no addt'l complaints, except as documented Hematologic/Lymphatic: Reports systems reviewed and no addt'l complaints, except as documented Rest 14 ROS are negative except as mentioned in HPI Vital Signs Vital Signs Vital Signs: 06/04/24 09:27 06/04/24 09:30 06/04/24 09:46 Temperature 98 F 98.0 F Temperature Source Temporal Oral Pulse Rate 77 77 Respiratory Rate 22 H 22 H Respiratory Pattern Tachypnea Blood Pressure 101/73 101/73 Blood Pressure Mean 82 82 Pulse Ox 100 100 Oxygen Delivery Method Room Air Room Air 06/04/24 11:30 06/04/24 11:34 Temperature 97.9 F 97.9 F Temperature Source Tympanic Pulse Rate 60 60 Respiratory Rate 15 15 Respiratory Pattern Blood Pressure 131/76 H 131/76 H Blood Pressure Mean 94 94 Pulse Ox 96 96 Oxygen Delivery Method Room Air Weight Weight: 265 lb 14.4 oz Body Mass Index (BMI) 44.2 Physical Exam Narrative Seen and examined General: Alert, Oriented x3, Cooperative. BMI 40.6 kg/m? morbid obesity HEENT: Atraumatic, PERRLA, EOMI, Normocephalic Oral: No Gingival or Mucosal Lesions/ Ulcerations. Deep pharyngeal structures could not be visualized Neck: Supple, No JVD, Negative Carotid Bruits Chest wall/Lungs: Air entry diminished in bilateral lung bases. No crepitation/rhonchi Cardiovascular: Regular rate, Regular Rhythm, Normal S1, Normal S2, No M/G/R Abdomen: Bowel Sounds Present, Soft, Non Tender, Non-Distended : No dysuria. No renal angle tenderness. No suprapubic tenderness. Extremities: No edema, Capillary Refill Less than 3 Seconds Skin: No rashes, No breakdown Musculoskeletal: Tenderness present over right lower extremity from right thigh/groin distally. Mild muscle tenderness in left calf. ROM restricted at knees and hip joints Neurological: Cranial nerves II-XII grossly intact, DTR 2+/4. No acute focal neurological deficit. Psych/Mental Status: Flat affect Results Lab / Micro Data 06/04/24 10:12 06/04/24 10:12 Labs: Laboratory Results - last 24 hr 06/04/24 10:12: WBC 11.0, RBC 3.52 L, Hgb 10.2 L, Hct 31.9 L, MCV 90.6, MCH 29.0, MCHC 32.0, RDW Std Deviation 43.1, RDW Coeff of Chris 13.1, Plt Count 233, MPV 9.7, Immature Gran % (Auto) 1.900 H, Neut % (Auto) 76.6 H, Lymph % (Auto) 10.8 L, Sevier % (Auto) 9.0, Eos % (Auto) 1.3, Baso % (Auto) 0.4, Absolute Neuts (auto) 8.4 H, Absolute Lymphs (auto) 1.18, Nucleated RBC % 0, Sodium 136, Potassium 3.6, Chloride 101, Carbon Dioxide 19.9 L, Anion Gap 15, BUN 12, Creatinine 0.91, Estim Creat Clear Calc 81.29, Est GFR (MDRD) Non-Af 70, BUN/Creatinine Ratio 13.4, Glucose 156 H, Lactic Acid < 1.0, Calcium 9.1, Total Bilirubin 0.81, AST 17, ALT 9, Alkaline Phosphatase 112 H, Total Protein 7.3, Albumin 3.8, Globulin 3.6, Albumin/Globulin Ratio 1.1 Imaging Radiology Impression Chest X-Ray 06/04/24 10:15 IMPRESSION: Minimal discoid atelectasis is seen of the left lung base, near the costophrenic angle. Lungs are hypoinflated, but otherwise appear clear of acute disease. No pleural effusion or pneumothorax is seen. The cardiomediastinal silhouette is stable, without evidence of cardiomegaly. Mild thoracic spine degenerative changes are seen, along with DISH. No acute osseous process is seen. Reading Location: [address] Assessment & Plan Assessment/Plan (1) Acute deep vein thrombosis (DVT) of popliteal vein of right lower extremity: (2) Thrombosis of left saphenous vein: PLAN: Plan This 64-year-old female is being admitted for RLE DVT and left SF junction DVT. CTPA reported no PE. History of PE in 2017, did not complete full anticoagulation. 1. Acute complete and diffuse DVT of RLE and left side of chronic DVT with history of PE in 2017, not on anticoagulation: Patient is being admitted in PCU. Therapeutic dose of Lovenox 1 mg/kg body weight Q12 hourly ordered. Vascular surgery consulted. Patient has history of IVC filter which is tilted in 2017 probably needs to be removed. proBNP normal, troponin normal. 2D echo is ordered. 2. CA colon in 1998 status post segmental colonic resection: Patient used to follow Dr.'s Lino Ruiz with colonoscopy surveillance. Last colonoscopy in May 2020 done for rectal bleeding from polypectomy site showed hemorrhoids, area of anastomosis and blood in the entire examined colon. Hemostatic clips were placed in previous polypectomy site, ileocolonic anastomotic area. She had sessile polyp removed and earlier colonoscopy in April 2020 at site of anastomosis. She had not followed anyone since group home of Dr. Lino Ruiz last year. 3. Chronic iron deficiency, normocytic normochromic anemia: H&H 10.2/32%. RDW 13, platelet count normal. MCV normal. Monitor CBC while on Endoxcin 4. Type 2 diabetes melitis: Glucose is 156. Accu-Chek before meals and at bedtime with Humalog sliding scale coverage and hypoglycemia protocol. 5. Chronic pain secondary to osteoarthritis of bilateral knees. 6. Morbid obesity: BMI 40.6 kg/m?. Nutrition consult and weight loss counseling done Living will/advanced directive/end of life care: Patient does not living will or advanced directive. Her eldest son is the power of state attorney for health. After discussion of benefits/risks procedures involved with full code, DNR CC arrest and DNR CC, the patient and her near the bedside opted for full code. Patient does want artificial life support including intubation, tube feed, ventilator and/chest compression, central venous catheter, vasopressor and DC shock if needed Total time spent in [id number] encounter in discussion of advanced directive 17 minutes. Laboratory Results 06/04/24 10:12: WBC 11.0, RBC 3.52 L, Hgb 10.2 L, Hct 31.9 L, MCV 90.6, MCH 29.0, MCHC 32.0, RDW Std Deviation 43.1, RDW Coeff of Chris 13.1, Plt Count 233, MPV 9.7, Immature Gran % (Auto) 1.900 H, Neut % (Auto) 76.6 H, Lymph % (Auto) 10.8 L, Sevier % (Auto) 9.0, Eos % (Auto) 1.3, Baso % (Auto) 0.4, Absolute Neuts (auto) 8.4 H, Absolute Lymphs (auto) 1.18, Nucleated RBC % 0, Sodium 136, Potassium 3.6, Chloride 101, Carbon Dioxide 19.9 L, Anion Gap 15, BUN 12, Creatinine 0.91, Estim Creat Clear Calc 81.29, Est GFR (MDRD) Non-Af 70, BUN/Creatinine Ratio 13.4, Glucose 156 H, Lactic Acid < 1.0, Calcium 9.1, Total Bilirubin 0.81, AST 17, ALT 9, Alkaline Phosphatase 112 H, Total Protein 7.3, Albumin 3.8, Globulin 3.6, Albumin/Globulin Ratio 1.1 06/04/24 11:21: Troponin T High Sens 7, NT pro BNP II 313 06/04/24 11:43: PT 16.8 H, INR 1.3, APTT 27.5 Clinical Impression(s) from Imaging Studies Chest X-Ray 06/04/24 10:15 IMPRESSION: Minimal discoid atelectasis is seen of the left lung base, near the costophrenic angle. Lungs are hypoinflated, but otherwise appear clear of acute disease. No pleural effusion or pneumothorax is seen. The cardiomediastinal silhouette is stable, without evidence of cardiomegaly. Mild thoracic spine degenerative changes are seen, along with DISH. No acute osseous process is seen. Reading Location: [id number] Chest CTA 06/04/24 11:16 IMPRESSION: 1. A left lower lobe posterior basal soft tissue density is seen, with hypodense center. Differential diagnosis includes Almeida's hump (associated with infarct) and infection (including small abscess). A neoplastic process is much less likely given the absence of this finding on the CT of 02/10/2020. 2. No evidence of pulmonary embolism is otherwise noted. 3. Hiatal hernia. 4. Apparent thyromegaly. Bilateral thyroid nodules. If not already obtained, consider thyroid sonography. 5. At least moderate coronary artery calcification is noted. Reading Location: [facility] Charges/Coding Visit Charges Inpatient E&M: 42458 Init Hosp L3 Procedures Hospitalists Procedures: [id number] Insert Emergency Airway
[2024-06-04 11:56] LABS: Pro- Brain NATRIURETIC PEPTIDE 313 pg/mL (<=900); Troponin T High Sensitivity 7 ng/L (<=14)
[2024-06-04 12:02] LABS: International Normalized Ratio 1.3; Prothrombin Time (Protime)PT. 16.8 SECONDS (11.7-14.9)
[2024-06-04 12:03] LABS: Partial Thromboplast Time 27.5 Seconds (24.1-36.2)
[2024-06-04] MEDS: Lactated Ringers 1,000 ML 75 ML IV (12:54)
[2024-06-04] MEDS: guaiFENesin/D-Methorphan TAB.SR.12H 2 TABLET PO (13:28)
[2024-06-04] MEDS: Enoxaparin 100 MG/ML Syringe 120 MG SC ×2 (13:28→22:50)
[2024-06-04 13:35] LABS: Magnesium 1.9 mg/dL (1.5-2.2)
--- NOTE | 2024-06-04 14:57 | ECHOD_ITS ---
Reason For Study Reason For Study: SUSPECTED PE Procedure This was a 2D Doppler, Color Flow transthoracic echocardiogram. Exam performed portable in patient room. Left Ventricle Normal LV size. Mild concentric left ventricular hypertrophy. Left ventricular systolic function is normal. The left ventricular ejection fraction is 65 %. No regional wall motion abnormalities noted. Right Ventricle Normal RV size. Normal systolic function. Atria Normal left atrium. Normal right atrium. Mitral Valve Normal mitral valve. Tricuspid Valve Normal tricuspid valve. Mild (1+) tricuspid valve insufficiency. Pulmonary artery systolic pressure is 30 mmHg. Aortic Valve Normal aortic valve. Trisinus/trileaflet aortic valve. Mild (1+) aortic valve insufficiency. Pulmonic Valve Normal pulmonic valve. Great Vessels Normal aortic root. Pericardium/Pleural No pericardial effusion. MMode/2D Measurements & Calculations LVIDd: 4.5 cm IVSd: 1.2 cm LVOT diam: 2.0 cm LVIDs: 3.3 cm LVPWd: 1.3 cm LVOT area: 3.2 cm2 RVDd: 3.5 cm FS: 26.7 % LAV(MOD-bp): 47.9 ml LVAd ap4: 29.7 cm2 SV(MOD-sp4): 51.9 ml LAV(MOD-bp) Indexed: 22.4 ml/m2 LVLd ap4: 9.4 cm SI(MOD-sp4): 24.2 ml/m2 LAV(MOD-sp2): 48.5 ml EDV(MOD-sp4): 82.0 ml LAV(MOD-sp4): 43.3 ml EDV(sp4-el): 79.8 ml LVAs ap4: 15.5 cm2 LVLs ap4: 7.1 cm ESV(MOD-sp4): 30.2 ml ESV(sp4-el): 28.6 ml EF(MOD-sp4): 63.2 % EF(sp4-el): 64.1 % SV(sp4-el): 51.1 ml LA A4 area: 18.2 cm2 LA dimension(2D): 3.1 cm RA A4 area: 14.8 cm2 Time Measurements MV dec time: 0.31 sec Doppler Measurements & Calculations MV E max ernesto: 74.7 cm/sec Lat Peak E' Ernesto: 15.2 cm/sec Med Peak E' Ernesto: 10.2 cm/sec MV A max ernesto: 68.7 cm/sec E/E' lat: 4.9 E/E' med: 7.3 MV E/A: 1.1 MV V2 max: 81.7 cm/sec Ao V2 max: 171.8 cm/sec MV max P.7 mmHg MV dec slope: 244.5 cm/sec2 Ao max P.8 mmHg MV V2 mean: 53.5 cm/sec Ao V2 mean: 117.2 cm/sec MV mean P.2 mmHg Ao mean P.3 mmHg MV V2 VTI: 30.9 cm Ao V2 VTI: 34.3 cm AV (velocity ratio): 0.83 MVA(VTI): 3.0 cm2 JOSE(I,D): 2.7 cm2 JOSE(V,D): 2.4 cm2 AI max ernesto: 382.2 cm/sec LV V1 max: 128.0 cm/sec SV(LVOT): 91.5 ml AI max P.4 mmHg LV V1 max P.6 mmHg LV V1 mean P.7 mmHg AI dec slope: 150.5 cm/sec2 LV V1 mean: 88.7 cm/sec AI P1/2t: 743.8 msec LV V1 VTI: 28.6 cm PA V2 max: 92.7 cm/sec TR max ernesto: 252.3 cm/sec PA V2 mean: 65.1 cm/sec TR max P.5 mmHg ECHO/Echo Complete Interpretation Summary Normal LV size. Mild concentric left ventricular hypertrophy. The left ventricular ejection fraction is 65 %. Left ventricular systolic function is normal. Pulmonary artery systolic pressure is 30 mmHg. Ordering Physician: Walt Banerjee Referring Physician: VIOLETA KELLER Performed By: Jayashree Pang RCS
[2024-06-04] MEDS: Ondansetron 4 MG/2 ML Vial IV (16:36)
[2024-06-04] MEDS: 0.9% Saline Lock 10 ML Syringe IV (16:36)
[2024-06-04 16:45] LABS: Bedside Glucose 114 mg/dL (74-106)
[2024-06-04] MEDS: Acetaminophen 325 MG Tablet 650 MG PO (19:24)
[2024-06-04 22:08] LABS: Bedside Glucose 147 mg/dL (74-106)
[2024-06-05 03:57] VITALS: BMI 40.2
[2024-06-05] MEDS: oxyCODONE 5 MG Tablet PO (04:29)
[2024-06-05 04:30] VITALS: BP 123/62; PULSE 66; RESP 18; TEMP 36.8; O2SAT 98
[2024-06-05 05:53] LABS: Absolute Lymphocyte Count 1.73 X10^3/uL (0.83-4.51); Absolute Neutrophil Count 7.2 X10^3/uL (2.0-7.7); Basophil# 0.04 X10^3/uL; Basophil% 0.4 % (0-1); Eosinophil# 0.21 X10^3/uL; Hematocrit 29.8 % (37-47); Hemoglobin 9.4 g/dL (12.0-15.0); Lymphocyte # 1.73 X10^3/ul (0.83-4.51); Lymphocyte % 16.7 % (19-41); Mean Corp Hgb Conc 31.5 g/dL (32-36); Mean Corpuscular Hgb 28.5 pg (27.0-32.0); Mean Corpuscular Volume 90.3 fL (81-99); Mean Platelet Vol. 9.4 fl (6.2-12.0); Monocyte# 0.99 X10^3/uL; Monocyte% 9.6 % (0-10); NRBC Flagged by Analyzer 0 % (0-5); Neutrophil % 69.5 % (47-70); Platelet Count 247 K/mm3 (150-450); RBC Distribution Width CV 12.9 % (11.6-14.6); White Blood Count 10.4 K/mm3 (4.4-11.0)
[2024-06-05 06:15] LABS: Anion Gap 13 (5-15); BUN 14 mg/dL (4-19); BUN/Creat Ratio 16.8 RATIO (10-20); Calcium,Total 9.1 mg/dL (7.6-11.0); Carbon Dioxide 22.5 mmol/L (21.0-32.0); Chloride 101 mmol/L (98-108); Creatinine, Serum 0.81 mg/dL (0.70-1.20); EST Glomerular Filtration Rate 82 (>60); Estimated Creatinine Clearance 86.49 ml/min (50-250); Glucose 141 mg/dL (70-99); Potassium 3.5 mmol/L (3.3-5.1); Sodium Level 137 mmol/L (133-145)
--- NOTE | 2024-06-05 08:21 | PCM.PN.HOSP ---
Reason for Visit Reason for Visit: Diagnoses Acute embolism and thrombosis of right popliteal vein (06/04/24) Embolism and thrombosis of superficial veins of left lower extremity (06/04/24) Subjective Subjective Still with ALLEN and LE edema. Objective Data Objective Data Vital Signs: Vital Signs Temp Pulse Resp BP Pulse Ox O2 Del Method 36.8 C 66 18 123/62 H 98 Room Air 06/05/24 04:30 06/05/24 04:30 06/05/24 04:30 06/05/24 04:30 06/05/24 04:30 06/05/24 04:30 Oxygen Delivery Method Room Air Weight: 109.7 kg Body Mass Index (BMI) 40.2 Intake & Output: Intake and Output for Last 24 Hours 06/03/24 06/04/24 06/05/24 23:59 23:59 23:59 Intake Total 1611.25 / 1611.25 Balance 1611.25 / 1611.25 Lab / Micro Data 06/05/24 05:34 06/05/24 05:34 Labs: Laboratory Results - last 24 hr 06/04/24 10:12: WBC 11.0, RBC 3.52 L, Hgb 10.2 L, Hct 31.9 L, MCV 90.6, MCH 29.0, MCHC 32.0, RDW Std Deviation 43.1, RDW Coeff of Chris 13.1, Plt Count 233, MPV 9.7, Immature Gran % (Auto) 1.900 H, Neut % (Auto) 76.6 H, Lymph % (Auto) 10.8 L, Harrison % (Auto) 9.0, Eos % (Auto) 1.3, Baso % (Auto) 0.4, Absolute Neuts (auto) 8.4 H, Absolute Lymphs (auto) 1.18, Nucleated RBC % 0, Sodium 136, Potassium 3.6, Chloride 101, Carbon Dioxide 19.9 L, Anion Gap 15, BUN 12, Creatinine 0.91, Estim Creat Clear Calc 81.29, Est GFR (MDRD) Non-Af 70, BUN/Creatinine Ratio 13.4, Glucose 156 H, Lactic Acid < 1.0, Calcium 9.1, Magnesium 1.9, Total Bilirubin 0.81, AST 17, ALT 9, Alkaline Phosphatase 112 H, Total Protein 7.3, Albumin 3.8, Globulin 3.6, Albumin/Globulin Ratio 1.1 06/04/24 11:21: Troponin T High Sens 7, NT pro BNP II 313 06/04/24 11:43: PT 16.8 H, INR 1.3, APTT 27.5 06/04/24 16:27: POC Glucose 114 H 06/04/24 21:20: POC Glucose 147 H 06/05/24 05:34: WBC 10.4, RBC 3.30 L, Hgb 9.4 L, Hct 29.8 L, MCV 90.3, MCH 28.5, MCHC 31.5 L, RDW Std Deviation 43.0, RDW Coeff of Chris 12.9, Plt Count 247, MPV 9.4, Immature Gran % (Auto) 1.800 H, Neut % (Auto) 69.5, Lymph % (Auto) 16.7 L, Harrison % (Auto) 9.6, Eos % (Auto) 2.0, Baso % (Auto) 0.4, Absolute Neuts (auto) 7.2, Absolute Lymphs (auto) 1.73, Nucleated RBC % 0, Sodium 137, Potassium 3.5, Chloride 101, Carbon Dioxide 22.5, Anion Gap 13, BUN 14, Creatinine 0.81, Estim Creat Clear Calc 86.49, Est GFR (MDRD) Non-Af 82, BUN/Creatinine Ratio 16.8, Glucose 141 H, Calcium 9.1 Radiography Diagnostic Testing: Radiology Impression Chest X-Ray 06/04/24 10:15 IMPRESSION: Minimal discoid atelectasis is seen of the left lung base, near the costophrenic angle. Lungs are hypoinflated, but otherwise appear clear of acute disease. No pleural effusion or pneumothorax is seen. The cardiomediastinal silhouette is stable, without evidence of cardiomegaly. Mild thoracic spine degenerative changes are seen, along with DISH. No acute osseous process is seen. Reading Location: [id number] Chest CTA 06/04/24 11:16 IMPRESSION: 1. A left lower lobe posterior basal soft tissue density is seen, with hypodense center. Differential diagnosis includes Almeida's hump (associated with infarct) and infection (including small abscess). A neoplastic process is much less likely given the absence of this finding on the CT of 02/10/2020. 2. No evidence of pulmonary embolism is otherwise noted. 3. Hiatal hernia. 4. Apparent thyromegaly. Bilateral thyroid nodules. If not already obtained, consider thyroid sonography. 5. At least moderate coronary artery calcification is noted. Reading Location: [address] Physical Exam Const alert and no apparent distress HEENT head/scalp atraumatic and moist oral mucous membranes Resp normal respiratory effort, no retractions, no use of accessory muscles and clear to auscultation bilaterally Cardio regular rate, regular rhythm, S1 normal heart sound and S2 normal heart sound GI normal to inspection, nondistended, normoactive bowel sounds, soft to palpation, non-tender and non-distended Extremity General Extremity: edema bilateral lower extremity Details: moderate Neuro Sensorium / Orientation: awake and alert Assessment & Plan Assessment/Plan (1) Abnormal CT scan, chest: PLAN: CTA report: LLL posteroir basal soft tissue density. Almeida's hump v infection, less likely neoplastic. Concerning it could be PE given diagnosis of new DVTs vascular surgery consultation for IVC filter, which was apparently placed in 2017, but was unable to be removed. CTA AP IVC dilated, concerning for oclusion. Likely thrombotic. (2) DVT (deep venous thrombosis): PLAN: per ED report: acute DVT of right femoral vein, and popliteal vein. Thrombosis of left saphenous vein. on therapeutic enoxaparin Monitor pt overnight, and if remains stable, could dc with apixaban. PLAN: Plan VTE prophylaxis: not indicated as already anticoagulated. Charges/Coding Visit Charges Inpatient E&M: 47915 Subs Hosp L2
--- NOTE | 2024-06-05 09:25 | CT_ITS ---
EXAM: CT Angiography Abdomen Without and With Intravenous Contrast CLINICAL INDICATION: EXTENSIVE DVT, PRIOR IVC FILTER TECHNIQUE: Axial computed tomographic angiography images of the abdomen without and with intravenous contrast. This CT exam was performed using one or more of the following dose reduction techniques: automated exposure control, adjustment of the mA and/or kV according to patient size, and/or use of iterative reconstruction technique. MIP reconstructed images were created and reviewed. COMPARISON: No relevant prior studies available. FINDINGS: AORTA: Scattered calcified atherosclerotic disease of the aorta. No aortic dissection or aneurysm. CELIAC TRUNK AND MESENTERIC ARTERIES: No acute findings. No occlusion or significant stenosis. RENAL ARTERIES: No acute findings. No occlusion or significant stenosis. INFERIOR VENA CAVA: Indwelling IVC filter. No contrast is noted in the IVC. The IVC appears dilated, concerning for occlusion. Indwelling IVC filter. LUNG BASES: Unremarkable. No mass. No consolidation. MEDIASTINUM: Small esophageal hiatal hernia. LIVER: Fatty infiltration of the liver. GALLBLADDER AND BILE DUCTS: Unremarkable. No calcified stones. No ductal dilation. PANCREAS: Unremarkable. No ductal dilation. No mass. SPLEEN: Unremarkable. No splenomegaly. ADRENALS: Unremarkable. No mass. KIDNEYS AND URETERS: Bilateral renal calculi, largest measuring up to 4 mm. STOMACH AND BOWEL: Unremarkable. No obstruction. No mucosal thickening. INTRAPERITONEAL SPACE: Unremarkable. No significant fluid collection. No free air. BONES/JOINTS: No acute fracture. No dislocation. SOFT TISSUES: Unremarkable. No mass. LYMPH NODES: Unremarkable. No enlarged lymph nodes. CT/CTA Abdomen W/WO Contrast IMPRESSION: 1. Indwelling IVC filter. No contrast is noted in the IVC. The IVC appears d ilated, concerning for occlusion. 2. Small esophageal hiatal hernia. 3. Scattered calcified atherosclerotic disease of the aorta. No aortic dissec tion or aneurysm. 4. Bilateral nephrolithiasis without hydronephrosis. Reading [facility]
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
[2024-06-05 10:20] VITALS: BP 113/81; PULSE 63; RESP 16; TEMP 36.6; O2SAT 96
[2024-06-05] MEDS: Enoxaparin 100 MG/ML Syringe 120 MG SC ×2 (10:26→20:30)
[2024-06-05] MEDS: Pantoprazole Sodium 40 MG Tablet PO (10:27)
[2024-06-05] MEDS: guaiFENesin/D-Methorphan TAB.SR.12H 2 TABLET PO (10:27)
--- NOTE | 2024-06-05 10:40 | CASEMGMT ---
PETAR PERLA Face to Face with patient for initial transition planning/care coordination assessment. RN CM introduced self and role at [facility]. Patient lying in bed, alert and oriented. Patient willing to participate in assessment and is able to answer all questions appropriately. Care providers, pharmacy, and demographics verified. Strata: 2 PCP: Fredrick Specialists: Vincenzo, mothercraft nurse Preferred Pharmacy: [facility] Insurance: [facility] Prescription Benefit: yes Living Will/HPOA: yes, son Luis Felipe Lo LNOK: son, ex Living Arrangements: Patient lives with son and ex in a 2 story home with bed and bath on first floor, 2 steps and railing to enter the home. Patient states she is independent at home. Transportation: self, family DME/HHC: Patient has raised toilet, cane, hospital bed, walker, wheelchair at home. Patient has been to the [facility] previously. Patient wishes to discharge home, will monitor for home health pending progress with therapy. Patient states she has no further needs or concerns at this time. CM to follow for discharge planning needs that may arise. Disposition Plan: Patient to discharge home with family support and follow-up plans in place. Will monitor for HHC. Mary SPANN, RN, CM
[2024-06-05 11:30] VITALS: O2SAT 96
[2024-06-05] MEDS: Insulin Lispro 100 UNIT/ML INSULN.PEN SC (12:05)
[2024-06-05 12:25] LABS: Bedside Glucose 167 mg/dL (74-106)
[2024-06-05] MEDS: Ondansetron 4 MG/2 ML Vial IV ×2 (13:50→21:20)
--- NOTE | 2024-06-05 14:51 | CHAPLAIN ---
Type of Pastoral Visit _x__ Initial Visit ___ Follow-up Visit ___ On-call Visit ___ General Patient Visit ___ Spiritual Assessment ___ Family Conference ___ Bereavement ___ Rapid Response ___ Code Blue ___ Other (describe below) Pastoral Care Referral From _x__ Patient ___ Family ___ Nurse ___ Physician ___ Fixture Designer ___ Hurl Shaker ___ Other (describe below) Sacrament/Intervention _x__ Active listening ___ Anointing ___ Latter-Day ___ Bereavement ___ Communion ___ Hali exploration ___ ___ Life review _x__ Prayer ___ Reconciliation ___ Sacrament of Sick _x__ Supportive presence ___ Wedding ___ Other (describe below) Pastoral Comments patient reviews her situation and the tests being done to determine her needs; pt says that she is able to rest and wait for the answers; pt has family support; pt welcomes a prayer
[2024-06-05 16:35] VITALS: BP 105/71; PULSE 86; RESP 18; TEMP 37; O2SAT 94
[2024-06-05 17:01] LABS: Bedside Glucose 101 mg/dL (74-106)
[2024-06-05 20:27] VITALS: BP 113/68; PULSE 72; RESP 16; TEMP 37.1; O2SAT 96
[2024-06-05 21:06] LABS: Bedside Glucose 131 mg/dL (74-106)
[2024-06-05] MEDS: 0.9% Saline Lock 10 ML Syringe IV (21:20)
[2024-06-06] MEDS: oxyCODONE 5 MG Tablet PO ×2 (00:58→23:23)
[2024-06-06 02:45] VITALS: BP 109/63; PULSE 68; RESP 18; TEMP 37.6; O2SAT 97
[2024-06-06 06:00] VITALS: BMI 47.4
[2024-06-06 06:21] LABS: Absolute Lymphocyte Count 2.09 X10^3/uL (0.83-4.51); Absolute Neutrophil Count 7.7 X10^3/uL (2.0-7.7); Basophil# 0.05 X10^3/uL; Basophil% 0.4 % (0-1); Eosinophil# 0.18 X10^3/uL; Eosinophils% 1.6 % (0-5); Hematocrit 29.4 % (37-47); Hemoglobin 9.5 g/dL (12.0-15.0); Lymphocyte # 2.09 X10^3/ul (0.83-4.51); Lymphocyte % 18.7 % (19-41); Mean Corp Hgb Conc 32.3 g/dL (32-36); Mean Corpuscular Hgb 28.9 pg (27.0-32.0); Mean Corpuscular Volume 89.4 fL (81-99); Mean Platelet Vol. 9.5 fl (6.2-12.0); Monocyte# 0.91 X10^3/uL; Monocyte% 8.2 % (0-10); NRBC Flagged by Analyzer 0 % (0-5); Neutrophil # 7.72 X10^3/uL (2.7-7.7); Neutrophil % 69.3 % (47-70); Platelet Count 292 K/mm3 (150-450); RBC Distribution Width SD 42.5 fl (35.1-43.9); Red Blood Count 3.29 M/mm3 (4.2-5.4); White Blood Count 11.2 K/mm3 (4.4-11.0)
[2024-06-06 06:41] LABS: Bedside Glucose 114 mg/dL (74-106)
[2024-06-06 06:42] LABS: Anion Gap 13 (5-15); BUN 16 mg/dL (4-19); BUN/Creat Ratio 19.2 RATIO (10-20); Carbon Dioxide 21.7 mmol/L (21.0-32.0); Chloride 103 mmol/L (98-108); Creatinine, Serum 0.81 mg/dL (0.70-1.20); EST Glomerular Filtration Rate 81 (>60); Estimated Creatinine Clearance 95.13 ml/min (50-250); Glucose 121 mg/dL (70-99); Potassium 3.4 mmol/L (3.3-5.1); Sodium Level 137 mmol/L (133-145)
--- NOTE | 2024-06-06 08:19 | PCM.PN.HOSP ---
Reason for Visit Reason for Visit: Diagnoses Acute embolism and thrombosis of unspecified deep veins of unspecified lower extremity (06/04/24) Acute embolism and thrombosis of right femoral vein (06/04/24) Acute embolism and thrombosis of right popliteal vein (06/04/24) Embolism and thrombosis of superficial veins of left lower extremity (06/04/24) Abnormal findings on diagnostic imaging of other specified body structures (06/04/24) Subjective Subjective No new complaints. Objective Data Objective Data Vital Signs: Vital Signs Temp Pulse Resp BP Pulse Ox O2 Del Method 37.6 C H 68 18 109/63 97 Room Air 06/06/24 02:45 06/06/24 02:45 06/06/24 02:45 06/06/24 02:45 06/06/24 02:45 06/06/24 08:07 Oxygen Delivery Method Room Air Weight: 129.2 kg Body Mass Index (BMI) 47.4 Intake & Output: Intake and Output for Last 24 Hours 06/04/24 06/05/24 06/06/24 23:59 23:59 23:59 Intake Total 1611.25 / 1611.25 Balance 1611.25 / 1611.25 Lab / Micro Data 06/06/24 05:51 06/06/24 05:51 Labs: Laboratory Results - last 24 hr 06/05/24 12:03: POC Glucose 167 H 06/05/24 16:36: POC Glucose 101 06/05/24 20:29: POC Glucose 131 H 06/06/24 05:51: WBC 11.2 H, RBC 3.29 L, Hgb 9.5 L, Hct 29.4 L, MCV 89.4, MCH 28.9, MCHC 32.3, RDW Std Deviation 42.5, RDW Coeff of Chris 13.0, Plt Count 292, MPV 9.5, Immature Gran % (Auto) 1.800 H, Neut % (Auto) 69.3, Lymph % (Auto) 18.7 L, [place] % (Auto) 8.2, Eos % (Auto) 1.6, Baso % (Auto) 0.4, Absolute Neuts (auto) 7.7, Absolute Lymphs (auto) 2.09, Nucleated RBC % 0, Sodium 137, Potassium 3.4, Chloride 103, Carbon Dioxide 21.7, Anion Gap 13, BUN 16, Creatinine 0.81, Estim Creat Clear Calc 95.13, Est GFR (MDRD) Non-Af 81, BUN/Creatinine Ratio 19.2, Glucose 121 H, Calcium 9.0 06/06/24 06:18: POC Glucose 114 H Radiography Diagnostic Testing: Radiology Impression Venous Doppler Study 06/04/24 09:57 Interpretation Summary Acute deep vein thrombosis noted in right common femoral vein, femoral vein, popliteal vein, tibioperoneal trunk vein, gastrocnemius vein, posterior tibial vein, peroneal vein, soleus vein. Acute superficial vein thrombosis noted in left saphenofemoral junction Ordering Physician: Keith Gibson Referring Physician: Radha Alcala Performed By: Alka Lugo, FRANTZ, RVT Echocardiogram 06/04/24 14:57 Interpretation Summary Normal LV size. Mild concentric left ventricular hypertrophy. The left ventricular ejection fraction is 65 %. Left ventricular systolic function is normal. Pulmonary artery systolic pressure is 30 mmHg. Ordering Physician: Walt Banerjee Referring Physician: RADHA ALCALA Performed By: Jayashree Pang, RCS Abdomen CTA 06/05/24 09:25 IMPRESSION: 1. Indwelling IVC filter. No contrast is noted in the IVC. The IVC appears dilated, concerning for occlusion. 2. Small esophageal hiatal hernia. 3. Scattered calcified atherosclerotic disease of the aorta. No aortic dissection or aneurysm. 4. Bilateral nephrolithiasis without hydronephrosis. Reading Location: [facility] Physical Exam Const alert and no apparent distress HEENT head/scalp atraumatic and moist oral mucous membranes Resp normal respiratory effort and no retractions Extremity Extremity Narrative: bilateral LE edema. Neuro Sensorium / Orientation: awake and alert Assessment & Plan Assessment/Plan (1) Abnormal CT scan, chest: PLAN: CTA report: LLL posterior basal soft tissue density. Almeida's hump v infection, less likely neoplastic. Concerning it could be PE given diagnosis of new DVTs vascular surgery consultation for IVC filter, which was apparently placed in 2017, but was unable to be removed. CTA AP IVC dilated, concerning for occlusion. Likely thrombotic. heparin gtt. (2) DVT (deep venous thrombosis): QUALIFIERS: Affected thrombotic vein of extremity: femoral Chronicity: acute DVT location: lower extremity Laterality: right Qualified Code(s): I82.411 - Acute embolism and thrombosis of right femoral vein PLAN: Duplex: acute DVT of right common femoral vein, femoral vein, popliteal vein, tibioperoneal trunk vein. Acute superficial thrombosis of left saphenous vein. CT A/P showed no contrast in the IVC, dilated and concerning for obstruction. Vascular planning on venogram thrombectomy later this week (06/07 or ). Will transition the patient to heparin gtt. At some point, pt to be transitioned to DOACs. I would anticipate life-long anticoagualtion. PLAN: Plan VTE prophylaxis: not indicated as already anticoagulated. Charges/Coding Visit Charges Inpatient E&M: 97150 Subs Hosp L2
--- NOTE | 2024-06-06 08:35 | PCM.PN.SRG ---
Subjective Subjective I saw patient resting in bed this morning. She relates that she had a rough night dealing with her RLE pain; she does not feel it has improved much from yesterday. She relates that walking was difficult. She would like to proceed with thrombectomy procedure. Objective Data Objective Data Vital Signs: Vital Signs Temp Pulse Resp BP Pulse Ox O2 Del Method 99.7 F H 68 18 109/63 97 Room Air 06/06/24 02:45 06/06/24 02:45 06/06/24 02:45 06/06/24 02:45 06/06/24 02:45 06/06/24 08:07 Oxygen Delivery Method Room Air Weight: 284 lb 13.396 oz Body Mass Index (BMI) 47.4 Intake & Output: Intake and Output for Last 24 Hours 06/04/24 06/05/24 06/06/24 23:59 23:59 23:59 Intake Total 1611.25 / 1611.25 Balance 1611.25 / 1611.25 Lab / Micro Data 06/06/24 05:51 06/06/24 05:51 Labs: Laboratory Results - last 24 hr 06/05/24 12:03: POC Glucose 167 H 06/05/24 16:36: POC Glucose 101 06/05/24 20:29: POC Glucose 131 H 06/06/24 05:51: WBC 11.2 H, RBC 3.29 L, Hgb 9.5 L, Hct 29.4 L, MCV 89.4, MCH 28.9, MCHC 32.3, RDW Std Deviation 42.5, RDW Coeff of Chris 13.0, Plt Count 292, MPV 9.5, Immature Gran % (Auto) 1.800 H, Neut % (Auto) 69.3, Lymph % (Auto) 18.7 L, [place] % (Auto) 8.2, Eos % (Auto) 1.6, Baso % (Auto) 0.4, Absolute Neuts (auto) 7.7, Absolute Lymphs (auto) 2.09, Nucleated RBC % 0, Sodium 137, Potassium 3.4, Chloride 103, Carbon Dioxide 21.7, Anion Gap 13, BUN 16, Creatinine 0.81, Estim Creat Clear Calc 95.13, Est GFR (MDRD) Non-Af 81, BUN/Creatinine Ratio 19.2, Glucose 121 H, Calcium 9.0 06/06/24 06:18: POC Glucose 114 H Radiography Diagnostic Testing: Radiology Impression Venous Doppler Study 06/04/24 09:57 Interpretation Summary Acute deep vein thrombosis noted in right common femoral vein, femoral vein, popliteal vein, tibioperoneal trunk vein, gastrocnemius vein, posterior tibial vein, peroneal vein, soleus vein. Acute superficial vein thrombosis noted in left saphenofemoral junction Ordering Physician: Keith Gibson Referring Physician: Radha Alcala Performed By: Alka Lugo, LA NENACS, RVT Echocardiogram 06/04/24 14:57 Interpretation Summary Normal LV size. Mild concentric left ventricular hypertrophy. The left ventricular ejection fraction is 65 %. Left ventricular systolic function is normal. Pulmonary artery systolic pressure is 30 mmHg. Ordering Physician: Walt Banerjee Referring Physician: RADHA ALCALA Performed By: Jayashree Pang [facility] Abdomen CTA 06/05/24 09:25 IMPRESSION: 1. Indwelling IVC filter. No contrast is noted in the IVC. The IVC appears dilated, concerning for occlusion. 2. Small esophageal hiatal hernia. 3. Scattered calcified atherosclerotic disease of the aorta. No aortic dissection or aneurysm. 4. Bilateral nephrolithiasis without hydronephrosis. Reading Location: [facility] Physical Exam Const alert, oriented x3, no apparent distress and healthy appearing General Appearance: cooperative; Negative for combative or lethargic Orientation / Consciousness: awake Exam Limitations: no limitations HEENT Head and Scalp: normocephalic and atraumatic Eyes EOMs intact bilaterally General Eye: normal appearance of both eyes Neck full ROM General: trachea midline Resp normal respiratory effort and no use of accessory muscles Effort and Inspection: Negative for labored, stridor or audible wheezes Cardio regular rate and regular rhythm Peripheral Pulses: brachial pulses present, radial pulses present, popliteal pulses present, posterior tibial pulses present and dorsalis pedis pulses present GI non-tender and non-distended; Negative for hepatosplenomegaly Back/Spine Cervical Spine: cervical ROM normal Extremity full ROM and normal capillary refill General Extremity: edema bilateral lower extremity Details: moderate Skin no rashes or lesions noted and no wounds Neuro oriented x3, CN's II-XII intact bilaterally, no focal motor deficits and no sensory deficits noted Psych thought process normal, cooperative, affect normal, speech normal and activity/motor behavior normal Assessment & Plan Assessment/Plan (1) DVT (deep venous thrombosis): QUALIFIERS: DVT location: lower extremity Affected thrombotic vein of extremity: femoral Chronicity: acute Laterality: right Qualified Code(s): I82.411 - Acute embolism and thrombosis of right femoral vein PLAN: She has had minimal improvement in her symptoms with significant RLE pain and edema which makes ambulation difficult. She is agreeable to proceeding with thrombectomy; we discussed procedure details including risks, benefits, and alternatives and all her questions were addressed. Plan for venogram with mechanical thrombectomy under conscious sedation in the medical lab assistant currently scheduled for 06/07/24 late morning. Transition from lovenox to heparin drip today for procedure tomorrow. Will continue heparin until patient is in the medical lab assistant. NPO after midnight. Charges/Coding Visit Charges Inpatient E&M: 97753 [facility] Hosp L1
[2024-06-06 08:36] VITALS: BP 112/69; PULSE 74; RESP 16; TEMP 36.6; O2SAT 95
[2024-06-06] MEDS: Pantoprazole Sodium 40 MG Tablet PO (08:41)
[2024-06-06 09:38] LABS: Partial Thromboplast Time 34.8 Seconds (24.1-36.2)
[2024-06-06] MEDS: HEPARIN/D5w 25,000 UNITS 25,000 UNITS/250 ML IV.SOLN. 10 UNITS CONT INF (10:07)
[2024-06-06] MEDS: 0.9% Saline Lock 10 ML Syringe IV (10:09)
[2024-06-06] MEDS: Heparin Injection (Vial) 5,000 UNIT/ML VIAL 4000 UNIT IV (10:09)
[2024-06-06 12:04] LABS: Bedside Glucose 120 mg/dL (74-106)
[2024-06-06] MEDS: Senna/Docusate Sodium 1 Tablet 2 TABLET PO (13:09)
[2024-06-06 14:13] VITALS: BP 120/72; PULSE 72; RESP 16; TEMP 36.8; O2SAT 97
[2024-06-06 17:12] LABS: Bedside Glucose 122 mg/dL (74-106)
[2024-06-06 21:00] VITALS: BP 120/61; PULSE 70; RESP 18; TEMP 37; O2SAT 97
[2024-06-06 21:27] LABS: Bedside Glucose 130 mg/dL (74-106)
[2024-06-06 23:14] LABS: Partial Thromboplast Time 43.5 Seconds (24.1-36.2)
[2024-06-07] VITALS (11 sets, daily range): BP systolic 94–114; BP diastolic 46–65; PULSE 67–83; RESP 15–20; TEMP 36.4–37; O2SAT 92–98; BMI 46.7
[2024-06-07] MEDS: HEPARIN/D5w 25,000 UNITS 25,000 UNITS/250 ML IV.SOLN. 13 UNITS CONT INF (05:02)
[2024-06-07 06:01] LABS: Absolute Lymphocyte Count 2.34 X10^3/uL (0.83-4.51); Basophil# 0.04 X10^3/uL; Basophil% 0.4 % (0-1); Eosinophil# 0.14 X10^3/uL; Eosinophils% 1.3 % (0-5); Hematocrit 28.3 % (37-47); Hemoglobin 9.1 g/dL (12.0-15.0); Lymphocyte # 2.34 X10^3/ul (0.83-4.51); Lymphocyte % 22.1 % (19-41); Mean Corp Hgb Conc 32.2 g/dL (32-36); Mean Corpuscular Volume 90.1 fL (81-99); Mean Platelet Vol. 9.5 fl (6.2-12.0); Monocyte# 0.89 X10^3/uL; Monocyte% 8.4 % (0-10); NRBC Flagged by Analyzer 0 % (0-5); Neutrophil # 6.95 X10^3/uL (2.7-7.7); Neutrophil % 65.5 % (47-70); Platelet Count 317 K/mm3 (150-450); RBC Distribution Width SD 42.8 fl (35.1-43.9); Red Blood Count 3.14 M/mm3 (4.2-5.4); White Blood Count 10.6 K/mm3 (4.4-11.0)
[2024-06-07 06:24] LABS: Partial Thromboplast Time 39.6 Seconds (24.1-36.2)
[2024-06-07 06:31] LABS: ALB/GLOB Ratio 0.9 RATIO (0.9-2.4); AST(SGOT) 18 U/L (<=31); Alanine Aminotransfer ALT/SGPT < 5 U/L (<=34); Albumin, Serum 3.2 g/dL (3.4-4.8); Alkaline Phosphatase 97 U/L (35-104); Anion Gap 12 (5-15); BUN 16 mg/dL (4-19); BUN/Creat Ratio 18.2 RATIO (10-20); Calcium,Total 8.2 mg/dL (7.6-11.0); Carbon Dioxide 22.8 mmol/L (21.0-32.0); Chloride 103 mmol/L (98-108); Creatinine, Serum 0.85 mg/dL (0.70-1.20); EST Glomerular Filtration Rate 76 (>60); Estimated Creatinine Clearance 89.85 ml/min (50-250); Globulin 3.7 g/dL (2.2-4.2); Glucose 127 mg/dL (70-99); Potassium 3.7 mmol/L (3.3-5.1); Protein, Total 6.9 g/dL (5.9-8.4); Sodium Level 137 mmol/L (133-145); Total Bilirubin 0.56 mg/dL (0.00-1.30)
[2024-06-07] MEDS: Heparin Injection (Vial) 5,000 UNIT/ML VIAL IV (06:33)
[2024-06-07 06:53] LABS: Bedside Glucose 113 mg/dL (74-106)
--- NOTE | 2024-06-07 08:42 | PN.HOSP_ITS ---
Reason for Visit Reason for Visit: Diagnoses Acute embolism and thrombosis of unspecified deep veins of unspecified lower extremity (06/04/24) Acute embolism and thrombosis of right femoral vein (06/04/24) Acute embolism and thrombosis of right popliteal vein (06/04/24) Embolism and thrombosis of superficial veins of left lower extremity (06/04/24) Abnormal findings on diagnostic imaging of other specified body structures (06/04/24) Subjective Subjective Feeling well post thrombectomy Objective Data Objective Data Vital Signs: Vital Signs Temp Pulse Resp BP Pulse Ox O2 Del Method 36.8 C 69 18 103/65 94 Room Air 06/07/24 07:57 06/07/24 07:57 06/07/24 07:57 06/07/24 07:57 06/07/24 07:57 06/07/24 07:57 Oxygen Delivery Method Room Air Weight: 127.3 kg Body Mass Index (BMI) 46.7 Intake & Output: Intake and Output for Last 24 Hours 06/05/24 06/06/24 06/07/24 23:59 23:59 23:59 Intake Total 145.87 / 145.87 126.01 / 126.01 Balance 145.87 / 145.87 126.01 / 126.01 Lab / Micro Data 06/07/24 05:06 06/07/24 05:06 Labs: Laboratory Results - last 24 hr 06/06/24 05:51: APTT 34.8 06/06/24 11:34: POC Glucose 120 H 06/06/24 16:05: APTT 39.0 H 06/06/24 16:45: POC Glucose 122 H 06/06/24 21:06: POC Glucose 130 H 06/06/24 22:38: APTT 43.5 H 06/07/24 05:06: WBC 10.6, RBC 3.14 L, Hgb 9.1 L, Hct 28.3 L, MCV 90.1, MCH 29.0, MCHC 32.2, RDW Std Deviation 42.8, RDW Coeff of Chris 13.0, Plt Count 317, MPV 9.5, Immature Gran % (Auto) 2.300 H, Neut % (Auto) 65.5, Lymph % (Auto) 22.1, [place] % (Auto) 8.4, Eos % (Auto) 1.3, Baso % (Auto) 0.4, Absolute Neuts (auto) 7.0, Absolute Lymphs (auto) 2.34, Nucleated RBC % 0, APTT 39.6 H, Sodium 137, Potassium 3.7, Chloride 103, Carbon Dioxide 22.8, Anion Gap 12, BUN 16, Creatinine 0.85, Estim Creat Clear Calc 89.85, Est GFR (MDRD) Non-Af 76, BUN/Creatinine Ratio 18.2, Glucose 127 H, Calcium 8.2, Total Bilirubin 0.56, AST 18, ALT < 5, Alkaline Phosphatase 97, Total Protein 6.9, Albumin 3.2 L, Globulin 3.7, Albumin/Globulin Ratio 0.9 06/07/24 06:35: POC Glucose 113 H Physical Exam Const alert and no apparent distress HEENT head/scalp atraumatic and moist oral mucous membranes Eyes Eyes Narrative: glasses. no icterus. Resp normal respiratory effort and no retractions Extremity Extremity Narrative: bilateral LE wraps. General Extremity: edema bilateral lower extremity Details: moderate Neuro Sensorium / Orientation: awake and alert Psych affect normal Assessment & Plan Assessment/Plan (1) Abnormal CT scan, chest: PLAN: CTA report: LLL posterior basal soft tissue density. Almeida's hump v infection, less likely neoplastic. Concerning it could be PE given diagnosis of new DVTs vascular surgery consultation for IVC filter, which was apparently placed in 2017, but was unable to be removed. CTA AP IVC dilated, concerning for occlusion. Likely thrombotic. heparin gtt. (2) DVT (deep venous thrombosis): QUALIFIERS: Affected thrombotic vein of extremity: femoral C hronicity: acute DVT location: lower extremity Laterality: right Qualified Code(s): I82.411 - Acute embolism and thrombosis of right femoral vein PLAN: Duplex: acute DVT of right common femoral vein, femoral vein, popliteal vein, tibioperoneal trunk vein. Acute superficial thrombosis of left saphenous vein. CT A/P showed no contrast in the IVC, dilated and concerning for obstruction. Thrombectomy with large clot removal on 06/07. JUAN Black, who recommends continuing heparin gtt, then potentially transition to DOAC on 06/08. JUAN pt and her family, I would anticipate life-long anticoagulation. PLAN: Plan VTE prophylaxis: not indicated as already anticoagulated. Charges/Coding Visit Charges Inpatient E&M: 76126 Subs Hosp L2
--- NOTE | 2024-06-07 10:34 | NURSING ---
This RN called and gave report to PETAR Akins at lab support service tech.
[2024-06-07 13:06] LABS: ACT Activated Clotting Time 181 sec (74-137)
[2024-06-07 13:06] LABS: ACT Activated Clotting Time 176 sec (74-137)
[2024-06-07] MEDS: Pantoprazole Sodium 40 MG Tablet PO (13:36)
[2024-06-07] MEDS: Acetaminophen 325 MG Tablet 650 MG PO ×2 (13:45→23:22)
[2024-06-07] MEDS: oxyCODONE 5 MG Tablet PO ×2 (13:46→23:22)
[2024-06-07] MEDS: 0.9% Normal Saline (1000mL) 1,000 ML 75 ML IV (13:57)
[2024-06-07 14:17] LABS: Bedside Glucose 122 mg/dL (74-106)
--- NOTE | 2024-06-07 14:58 | OP.PCM_ITS ---
Operative Report (Standard) Operative Information Date of Procedure: 06/07/24 Pre-Operative Diagnosis: Right lower extremity DVT Post-Operative Diagnosis: Same, thrombosis of inferior vena cava, bilateral common iliac veins, bilateral external iliac veins Surgery/Procedure Performed: Venogram inferior vena cava Bilateral lower extremity venogram Intravascular ultrasound inferior vena cava, bilateral common iliac veins, bilateral external iliac veins, right common femoral vein, right femoral vein Angioplasty inferior vena cava, bilateral common iliac veins, bilateral external iliac veins Percutaneous thrombectomy inferior vena cava, bilateral common iliac veins, bilateral external iliac veins, right common femoral vein, right femoral vein furnace reliner: No Type of Anesthesia: Local and Sedation,Conscious Procedure Start Time: 11:30 Procedure Stop Time: 13:00 Select all DRAINS/GRAFTS/IMPLANTS that apply: None Estimated Blood Loss: 650 Specimen collected: No Description of surgery: HPI: Patient is a 64-year-old female with history of prior deep venous thrombosis and pulmonary embolism and previously placed inferior vena cava filter. She presented with acute right lower extremity DVT and bilateral lower extremity aching and heaviness. CT scan revealed significantly dilated inferior vena cava and bilateral iliac veins suggestive of either filter obstruction or vessel thrombosis. She is taken now for venogram with possible thrombectomy. Description of procedure: Upon obtaining form consent and verification correct patient procedure and site the patient was taken to the [facility] where she was positioned prepped and draped in usual sterile fashion. Timeouts performed conscious a day send managed with Versed and fentanyl. Skin overlying the right popliteal vein was anesthetized 1% lidocaine the vessel accessed under ultrasound guidance with a micropuncture needle wire. This was then exchanged for micropuncture sheath through which hand-injection right lower extremity venogram was performed revealing satisfactory positioning no extravasation or dissection. This revealed extensive nonocclusive thrombus throughout the popliteal and femoral vein. Through the micropuncture sheath a glide advantage wire was advanced and the micropuncture sheath exchanged for a short 10 [place] sheath. Through this further sequential subtraction venography of the remainder of the right lower extremity and the right iliac system was performed which revealed more proximal nonocclusive thrombus in the femoral and common femoral vein with total occlusion of the superior aspect of the external iliac vein and of the common iliac vein. The glide advantage wire was then used to navigate the area of total occlusion traversing the vena cava filter into the inferior vena cava superiorly. Catheter was then advanced and the wire withdrawn a hand- injection subtraction venogram performed that revealed satisfactory positioning in the vena cava with no extravasation or dissection. The glide advantage wire was then readvanced and the catheter withdrawn. Intravascular ultrasound probe was then advanced and recorded pullback performed of the vena cava, right common iliac vein, right external iliac vein, right common femoral vein, right femoral vein. This confirmed diffuse subacute and acute thrombus in position within the primary vein branches. The 10 [place] sheath were then exchanged for a 16 [place] sheath. Next skin overlying the left popliteal vein was anesthetized 1% lidocaine and the vessel accessed under ultrasound guidance with a micropuncture needle wire. This was exchanged for micropuncture sheath through which injection left lower extremity venogram was performed revealing satisfactory position extravasation or dissection. This revealed patent left femoral- popliteal vein though with delayed contrast transit. Through the micropuncture sheath a glide advantage wire was advanced the micropuncture sheath exchanged for a 10 [place] sheath. Through the 10 [place] sheath additional subtraction venography images of the left lower extremity were performed which revealed patent common femoral vein though area of approximately 75% stenosis was identified. The inferior aspect of the external leg vein was patent with no thrombus with total occlusion of the superior aspect of the external leg pain in the entirety of the common iliac vein. [place] advantage wire and quick cross catheter were then used to navigate the area of thrombus advancing the wire catheter into the vena cava superior to the IVC filter. The wires withdrawn a hand-injection venogram performed revealed satisfactory positioning within the vena cava with no extravasation or dissection. The patient was then heparinized and allowed to circulate for 3 minutes with subsequent heparin dosing based on ACT results. The penumbra aspiration thrombectomy device was then brought in field prep for manufactures instructions. It was then advanced through the right popliteal access sheath and engaged throughout the femoral vein up to the common femoral vein with satisfactory clot and blood return. The sheath was then further advanced in the aspiration catheter [place] into the iliac system for multiple passes again with substantial thrombus returned. Repeat imaging revealed significant improvement in flow channel with some mural thrombus residual but now with brisk contrast transit. The device ultimately was advanced up to the vena cava filter and thrombus within the filter likewise aspirated. Next the intravascular sound probe was advanced via the left popliteal access sheath and recorded pullback performed of the inferior vena cava, left common vein, left external leg vein. This revealed occlusive acute and subacute thrombus. The 10 [place] sheath then exchanged for a second 16 [place]ian sheath and through this the aspiration thrombectomy of ice was advanced and engaged across the iliac thrombus with significant thrombus return. Subsequent repeat intravascular ultrasound and subtraction venography revealed some residual thrombus in the vena cava just above the confluence and within the left common iliac vein. Further aspirations were performed with improvement in the iliac vein however there was still significant residual thrombus in the vena cava. The [employer] Smart claw device was then advanced via the penumbra catheter and utilized to mechanically agitate the thrombus while aspirating on the penumbra device. Subsequent repeat imaging revealed no significant reduction of the burden of thrombus within the vena cava and brisk contrast transit. It was felt that no further thrombectomy was warranted so wires and catheters were withdrawn. Pursestring sutures in place each of the access sites and the sheath withdrawn and manual pressure held till hemostasis was obtained. The patient was then taken to the PCU for bedrest. Surgical Findings: See above Complications Complications: No
--- NOTE | 2024-06-07 16:45 | NURSING ---
Ambulated pt in the room and pt up to chair. Denies pain or discomfort. No signs of complications
[2024-06-07 17:09] LABS: Hematocrit 24.4 % (37-47); Hemoglobin 7.8 g/dL (12.0-15.0)
[2024-06-07 17:26] LABS: Bedside Glucose 144 mg/dL (74-106)
[2024-06-07 21:19] LABS: Bedside Glucose 108 mg/dL (74-106)
[2024-06-07 23:16] LABS: Partial Thromboplast Time 44.3 Seconds (24.1-36.2)
[2024-06-08 03:30] VITALS: BP 102/63; PULSE 72; RESP 14; TEMP 36.7; O2SAT 95
[2024-06-08 03:39] VITALS: BMI 47.1
[2024-06-08] MEDS: HEPARIN/D5w 25,000 UNITS 25,000 UNITS/250 ML IV.SOLN. 13 UNITS CONT INF (04:33)
[2024-06-08 06:41] LABS: Absolute Lymphocyte Count 2.24 X10^3/uL (0.83-4.51); Absolute Neutrophil Count 6.1 X10^3/uL (2.0-7.7); Basophil# 0.03 X10^3/uL; Basophil% 0.3 % (0-1); Eosinophil# 0.11 X10^3/uL; Eosinophils% 1.2 % (0-5); Hematocrit 23.1 % (37-47); Hemoglobin 7.6 g/dL (12.0-15.0); Lymphocyte # 2.24 X10^3/ul (0.83-4.51); Lymphocyte % 23.5 % (19-41); Mean Corp Hgb Conc 32.9 g/dL (32-36); Mean Corpuscular Hgb 29.5 pg (27.0-32.0); Mean Corpuscular Volume 89.5 fL (81-99); Mean Platelet Vol. 9.4 fl (6.2-12.0); Monocyte# 0.72 X10^3/uL; Monocyte% 7.6 % (0-10); NRBC Flagged by Analyzer 0 % (0-5); Neutrophil # 6.05 X10^3/uL (2.7-7.7); Neutrophil % 63.4 % (47-70); Platelet Count 249 K/mm3 (150-450); RBC Distribution Width SD 42.1 fl (35.1-43.9); Red Blood Count 2.58 M/mm3 (4.2-5.4); White Blood Count 9.5 K/mm3 (4.4-11.0)
[2024-06-08 06:56] LABS: Anion Gap 8 (5-15); BUN 16 mg/dL (4-19); BUN/Creat Ratio 21.1 RATIO (10-20); Calcium,Total 8.3 mg/dL (7.6-11.0); Carbon Dioxide 23.5 mmol/L (21.0-32.0); Chloride 106 mmol/L (98-108); Creatinine, Serum 0.77 mg/dL (0.70-1.20); EST Glomerular Filtration Rate 87 (>60); Estimated Creatinine Clearance 99.74 ml/min (50-250); Glucose 120 mg/dL (70-99); Potassium 3.8 mmol/L (3.3-5.1); Sodium Level 137 mmol/L (133-145)
[2024-06-08 07:19] LABS: Bedside Glucose 116 mg/dL (74-106)
[2024-06-08 07:28] VITALS: O2SAT 96
[2024-06-08 07:53] LABS: Partial Thromboplast Time 52.7 Seconds (24.1-36.2)
--- NOTE | 2024-06-08 07:56 | PCM.PN.HOSP ---
Reason for Visit Reason for Visit: Diagnoses Acute embolism and thrombosis of unspecified deep veins of unspecified lower extremity (06/04/24) Acute embolism and thrombosis of right femoral vein (06/04/24) Acute embolism and thrombosis of right popliteal vein (06/04/24) Embolism and thrombosis of superficial veins of left lower extremity (06/04/24) Abnormal findings on diagnostic imaging of other specified body structures (06/04/24) Subjective Subjective Earlier had some pain in posterior right leg. Followed up hours later and it much more tolerable. Objective Data Objective Data Vital Signs: Vital Signs Temp Pulse Resp BP Pulse Ox O2 Del Method 36.7 C 72 14 102/63 95 Room Air 06/08/24 03:30 06/08/24 03:30 06/08/24 03:30 06/08/24 03:30 06/08/24 03:30 06/08/24 03:30 Oxygen Delivery Method Room Air Weight: 128.5 kg Body Mass Index (BMI) 47.1 Intake & Output: Intake and Output for Last 24 Hours 06/06/24 06/07/24 06/08/24 23:59 23:59 23:59 Intake Total 145.87 / 145.87 732.41 / 732.41 1021.72 / 1021.72 Balance 145.87 / 145.87 732.41 / 732.41 1021.72 / 1021.72 Lab / Micro Data 06/08/24 06:30 06/08/24 06:30 Labs: Laboratory Results - last 24 hr 06/07/24 11:12: Activated Clotting Time 181 H 06/07/24 11:43: Activated Clotting Time 176 H 06/07/24 13:55: POC Glucose 122 H 06/07/24 14:30: APTT 214.0 H* 06/07/24 16:51: POC Glucose 144 H 06/07/24 16:56: Hgb 7.8 L, Hct 24.4 L 06/07/24 20:48: POC Glucose 108 H 06/07/24 22:52: APTT 44.3 H 06/08/24 06:30: WBC 9.5, RBC 2.58 L, Hgb 7.6 L, Hct 23.1 L, MCV 89.5, MCH 29.5, MCHC 32.9, RDW Std Deviation 42.1, RDW Coeff of Chris 13.0, Plt Count 249, MPV 9.4, Immature Gran % (Auto) 4.000 H, Neut % (Auto) 63.4, Lymph % (Auto) 23.5, [place] % (Auto) 7.6, Eos % (Auto) 1.2, Baso % (Auto) 0.3, Absolute Neuts (auto) 6.1, Absolute Lymphs (auto) 2.24, Nucleated RBC % 0, APTT 52.7 H, Sodium 137, Potassium 3.8, Chloride 106, Carbon Dioxide 23.5, Anion Gap 8, BUN 16, Creatinine 0.77, Estim Creat Clear Calc 99.74, Est GFR (MDRD) Non-Af 87, BUN/Creatinine Ratio 21.1 H, Glucose 120 H, Calcium 8.3 06/08/24 06:37: POC Glucose 116 H Physical Exam Const alert and no apparent distress HEENT head/scalp atraumatic and moist oral mucous membranes Extremity Extremity Narrative: edema bilateral LE. Legs wrapped. Assessment & Plan Assessment/Plan (1) Abnormal CT scan, chest: PLAN: CTA report: LLL posterior basal soft tissue density. Almeida's hump v infection, less likely neoplastic. Concerning it could be PE given diagnosis of new DVTs vascular surgery consultation for IVC filter, which was apparently placed in 2017, but was unable to be removed. CTA AP IVC dilated, concerning for occlusion. Likely thrombotic. heparin gtt. (2) DVT (deep venous thrombosis): QUALIFIERS: Affected thrombotic vein of extremity: femoral Chronicity: acute DVT location: lower extremity Laterality: right Qualified Code(s): I82.411 - Acute embolism and thrombosis of right femoral vein PLAN: Duplex: acute DVT of right common femoral vein, femoral vein, popliteal vein, tibioperoneal trunk vein. Acute superficial thrombosis of left saphenous vein. CT A/P showed no contrast in the IVC, dilated and concerning for obstruction. Thrombectomy with large clot removal on 06/07. DW Dr. Black, who recommends continuing heparin gtt, then potentially transition to DOAC on 06/08. Follow up with Dr. Black on 06/16 for suture removal. PLAN: Plan VTE prophylaxis: not indicated as already anticoagulated. DC home with apixaban.
--- NOTE | 2024-06-08 08:19 | PN.SURG_ITS ---
Subjective Subjective I saw patient resting in bed this morning. She continues to have lower extremity pain, a bit better than yesterday. She has expected discomfort at the access sites. She did well with the procedure yesterday. Objective Data Objective Data Vital Signs: Vital Signs Temp Pulse Resp BP Pulse Ox O2 Del Method 98.0 F 72 14 102/63 95 Room Air 06/08/24 03:30 06/08/24 03:30 06/08/24 03:30 06/08/24 03:30 06/08/24 03:30 06/08/24 08:09 Oxygen Delivery Method Room Air Weight: 283 lb 4.704 oz Body Mass Index (BMI) 47.1 Intake & Output: Intake and Output for Last 24 Hours 06/06/24 06/07/24 06/08/24 23:59 23:59 23:59 Intake Total 145.87 / 145.87 732.41 / 732.41 1067.00 / 1067.00 Balance 145.87 / 145.87 732.41 / 732.41 1067.00 / 1067.00 Lab / Micro Data 06/08/24 06:30 06/08/24 06:30 Labs: Laboratory Results - last 24 hr 06/07/24 11:12: Activated Clotting Time 181 H 06/07/24 11:43: Activated Clotting Time 176 H 06/07/24 13:55: POC Glucose 122 H 06/07/24 14:30: APTT 214.0 H* 06/07/24 16:51: POC Glucose 144 H 06/07/24 16:56: Hgb 7.8 L, Hct 24.4 L 06/07/24 20:48: POC Glucose 108 H 06/07/24 22:52: APTT 44.3 H 06/08/24 06:30: WBC 9.5, RBC 2.58 L, Hgb 7.6 L, Hct 23.1 L, MCV 89.5, MCH 29.5, MCHC 32.9, RDW Std Deviation 42.1, RDW Coeff of Chris 13.0, Plt Count 249, MPV 9.4, Immature Gran % (Auto) 4.000 H, Neut % (Auto) 63.4, Lymph % (Auto) 23.5, [place] % (Auto) 7.6, Eos % (Auto) 1.2, Baso % (Auto) 0.3, Absolute Neuts (auto) 6.1, Absolute Lymphs (auto) 2.24, Nucleated RBC % 0, APTT 52.7 H, Sodium 137, Potassium 3.8, Chloride 106, Carbon Dioxide 23.5, Anion Gap 8, BUN 16, Creatinine 0.77, Estim Creat Clear Calc 99.74, Est GFR (MDRD) Non-Af 87, B UN/Creatinine Ratio 21.1 H, Glucose 120 H, Calcium 8.3 06/08/24 06:37: POC Glucose 116 H Physical Exam Const alert, oriented x3, no apparent distress and healthy appearing General Appearance: cooperative; Negative for combative or lethargic Orientation / Consciousness: awake Exam Limitations: no limitations HEENT Head and Scalp: normocephalic and atraumatic Eyes EOMs intact bilaterally General Eye: normal appearance of both eyes Neck full ROM General: trachea midline Resp normal respiratory effort and no use of accessory muscles Effort and Inspection: Negative for labored, stridor or audible wheezes Cardio regular rate and regular rhythm Peripheral Pulses: brachial pulses present, radial pulses present, popliteal pulses present, posterior tibial pulses present and dorsalis pedis pulses present GI non-tender and non-distended; Negative for hepatosplenomegaly Back/Spine Cervical Spine: cervical ROM normal Extremity full ROM and normal capillary refill Extremity Narrative: Bilateral popliteal access sites with dry pressure dressing in place; no bleed- through, no hematoma. General Extremity: edema bilateral lower extremity Details: moderate Skin no rashes or lesions noted and no wounds Neuro oriented x3, CN's II-XII intact bilaterally, no focal motor deficits and no sensory deficits noted Psych thought process normal, cooperative, affect normal, speech normal and activity/motor behavior normal Assessment & Plan Assessment/Plan (1) DVT (deep venous thrombosis): QUALIFIERS: DVT location: lower extremity Affected thrombotic vein of extremity: femoral Chronicity: acute Laterality: right Qualified Code(s): I82.411 - Acute embolism and thrombosis of right femoral vein PLAN: She is s/p venogram with mechanical thrombectomy performed 06/07/24. Bilateral popliteal fossa puncture sites without hematoma/bleeding. From vascular standpoint, OK to transition back to DOAC today and OK for discharge when otherwise medically stable. Plan for outpatient follow-up in the office in 1-2 weeks for suture removal. Charges/Coding Visit Charges Inpatient E&M: 58174 Subs Hosp L1
[2024-06-08] MEDS: Pantoprazole Sodium 40 MG Tablet PO (10:18)
[2024-06-08] MEDS: Acetaminophen 325 MG Tablet 650 MG PO (10:18)
[2024-06-08] MEDS: oxyCODONE 5 MG Tablet PO ×2 (10:18→15:29)
[2024-06-08 10:20] VITALS: BP 93/50; PULSE 71; RESP 18; TEMP 36.4; O2SAT 97
[2024-06-08 11:53] LABS: Bedside Glucose 127 mg/dL (74-106)
--- NOTE | 2024-06-08 13:45 | CASEMGMT ---
Addendum entered by Antwon Cartagena 06/08/24 14:34: Liane @ [facility] retail pharmacy made aware pt would like meds delivered to her room. Original Note: PETAR PERLA NOTE: PETAR PERLA to room. Pt sitting up in chair in room. Introduced self and role. Pt aware she will be discharging home on an anti-coag. She states she would like to get any new Rx's from [facility] retail pharmacy @ [facility] [employer] updated. Discussed discharge planning and how she has been getting around. She declines wanting any HHC or OP therapy @ [facility] and made aware to f/u with PCP if she changes her mind once returning home. She states she has an appt w/PA @ Dr Alcala's office tomorrow morning and she plans to call later today to cx it if she is not getting discharged today. She declines needing assistance w/this. She denies having any discharge concerns or needs and states her ex- will be taking her home when she is discharged. Chelsea SPANN RN, CM
--- NOTE | 2024-06-08 14:14 | DS.PCM_ITS ---
Providers Date of Admission: 06/04/24 Primary Care Physician: Dr. Radha Alcala MD Consultations 06/04/24 18:46 Consult: Vascular Surgery Routine Consulting Provider: Eliot Black Reason for Consult: DVT despite IVC filter EMERGENT Consult: No MD Notified: Yes Date Notified: 06/04/24 Time Notified: 18:46 Method of Notification: Verbal Reason For Visit: B/L PE, DVT DESPITE FILTER Diagnosis Discharge Diagnosis (1) Abnormal CT scan, chest: Status: Acute Code(s): R93.89 - Abnormal findings on diagnostic imaging of other specified body structures Plan: CTA report: LLL posterior basal soft tissue density. Almeida's hump v infection, less likely neoplastic. Concerning it could be PE given diagnosis of new DVTs vascular surgery consultation for IVC filter, which was apparently placed in 2016, but was unable to be removed. CTA AP IVC dilated, concerning for occlusion. Likely thrombotic. heparin gtt. (2) DVT (deep venous thrombosis): Status: Acute Code(s): I82.409 - Acute embolism and thrombosis of unspecified deep veins of unspecified lower extremity Qualifiers: DVT location: lower extremity Affected thrombotic vein of extremity: f emoral Chronicity: acute Laterality: right Qualified Code(s): I82.411 - Acute embolism and thrombosis of right femoral vein Plan: Duplex: acute DVT of right common femoral vein, femoral vein, popliteal vein, tibioperoneal trunk vein. Acute superficial thrombosis of left saphenous vein. CT A/P showed no contrast in the IVC, dilated and concerning for obstruction. Thrombectomy with large clot removal on 06/07. DW Dr. Black, who recommends continuing heparin gtt, then potentially transition to DOAC on 06/08. Follow up with Dr. Black on 06/16 for suture removal. Plan VTE prophylaxis: not indicated as already anticoagulated. DC home with apixaban. Medications at Discharge Home Medications aspirin 81 mg chewable tablet 81 mg PO DAILY heart health 10/05/16 ergocalciferol (vitamin D2) 1,250 mcg (50,000 unit) capsule 50,000 unit PO QWEEK supplement 10/05/16 ondansetron HCl 4 mg tablet 4 mg PO Q8H PRN Nausea 10/05/16 sennosides 8.6 mg-docusate sodium 50 mg tablet 1 ea PO BID PRN stool softner 10/05/16 hydrochlorothiazide 12.5 mg tablet 12.5 mg PO DAILY DAILY 03/22/17 famotidine 20 mg tablet 20 mg PO BID stomach 05/03/20 atorvastatin 20 mg tablet 20 mg PO QHS cholesterol 05/14/20 mirabegron 50 mg tablet,extended release 24 hr 50 mg PO DAILY bladder 05/14/20 potassium chloride 10 mEq tablet,extended release 1 tab PO DAILY supplement 05/14/20 acetaminophen 500 mg tablet 1,000 mg PO Q6H PRN pain 06/04/24 bupropion HCl 150 mg tablet,12 hr sustained-release 150 mg PO BID DEPRESSION 06/04/24 cholecalciferol (vitamin D3) 50 mcg (2,000 unit) tablet 50 mcg PO DAILY SUPPLEMENT 06/04/24 cyanocobalamin (vitamin B-12) 5,000 mcg capsule 5,000 mcg PO DAILY SUPPLEMENT 06/04/24 dapagliflozin propanediol 5 mg tablet (Farxiga) 5 mg PO DAILY BLOOD SUAGR 06/04/24 duloxetine 30 mg capsule,delayed release 30 mg PO DAILY DEPRESSION 06/04/24 ferrous sulfate 325 mg (65 mg iron) tablet 325 mg PO BIDCM STOMACH 06/04/24 hydrocodone-homatropine 5 mg-1.5 mg/5 mL oral syrup (Hydromet) 5 ml PO Q6H PRN cough 06/04/24 sumatriptan succinate 50 mg tablet 50 mg PO DAILY PRN migraine headache 06/04/24 acetaminophen 325 mg tablet 500 mg (1.5385 x 325 mg) PO Q6H PRN PRN Pain 1-10 Or Fever >100.7 #0 tabs 06/08/24 apixaban 5 mg tablet 5 mg PO BID #90 tabs 06/08/24 Hospital Course Operations - (thromectomy) Summary of Care Provided Minutes Spent on Discharge: 32 Hospital Course: Complains of bilateral lower extremity pain and edema along with shortness of breath. Patient had a CTA that was concerning for PE not definitively diagnosis. Bilateral lower extremity showed positive DVTs on duplex. And patient was shown to have obstruction at her IVC filter site. Patient underwent a thrombectomy that removed a very large thrombus burden from her IVC filter down both iliac veins. Likely the IVC filter, that could not be removed previously due to how it is positioned was likely holding back further clots causing further clot burden and leading to have increasing lower extremity edema. Likely some that clot broke off causing the CTA findings with the PE. Patient had thrombectomy and did well. Patient will be discharged with apixaban. Anticipate lifelong anticoagulation given her history of clots and the massive clot burden that she had. On reviewing her home medications when she was getting ready for discharge, patient was on Minera IUD. She thinks that she is on that for menopause symptoms. Advised her that given the clot risk for these impregnated IUDs, recommend having that removed. She will follow-up with her gynecology see about having that removed. Weight / BMI Weight Weight: 128.5 kg Body Mass Index (BMI) 47.1 ABG / Lab / Microbiology Data 06/08/24 06:30 06/08/24 06:30 Laboratory: Laboratory Results - last 24 hr 06/07/24 13:55: POC Glucose 122 H 06/07/24 14:30: APTT 214.0 H* 06/07/24 16:51: POC Glucose 144 H 06/07/24 16:56: Hgb 7.8 L, Hct 24.4 L 06/07/24 20:48: POC Glucose 108 H 06/07/24 22:52: APTT 44.3 H 06/08/24 06:30: WBC 9.5, RBC 2.58 L, Hgb 7.6 L, Hct 23.1 L, MCV 89.5, MCH 29.5, MCHC 32.9, RDW Std Deviation 42.1, RDW Coeff of Chris 13.0, Plt Count 249, MPV 9.4, Immature Gran % (Auto) 4.000 H, Neut % (Auto) 63.4, Lymph % (Auto) 23.5, Butler % (Auto) 7.6, Eos % (Auto) 1.2, Baso % (Auto) 0.3, Absolute Neuts (auto) 6.1, Absolute Lymphs (auto) 2.24, Nucleated RBC % 0, APTT 52.7 H, Sodium 137, Potassium 3.8, Chloride 106, Carbon Dioxide 23.5, Anion Gap 8, BUN 16, Creatinine 0.77, Estim Creat Clear Calc 99.74, Est GFR (MDRD) Non-Af 87, B UN/Creatinine Ratio 21.1 H, Glucose 120 H, Calcium 8.3 06/08/24 06:37: POC Glucose 116 H 06/08/24 11:34: POC Glucose 127 H D/C Instructions Discharge Diet: No restrictions DC O2, CPAP, BIPAP Needs Home O2 Discharge instructions: No Meaningful Use Info Meaningful Use Meaningful Use Diagnoses (Choose all that apply): None applicable Ischemic Stroke Statin Dosing Therapy Reference: STATIN DOSE THERAPY REFERENCE: * Patients > 75 years receive moderate or high dose statin therapy. * Patients 75 years or YOUNGER should receive HIGH intensity statin dose unless contraindicated. You will be required to document reason for non-treatment if statin daily dose does not meet guidelines. HIGH DOSE STATIN THERAPY DAILY Atorvastatin > than or = to 40 mg Rosuvastatin > than or = to 20 mg Amlodipine + Atorvastatin > than or = to 2.5/40 mg Ezetimibe + Simvastatin 10/80 mg Simvastatin 80mg Discharge Plan Admission Admit Date/Time: 06/04/24 11:44 Primary Reason for Your Visit: DVT Attending Provider: Eliot Hanson Primary Care Provider: Radha Alcala Consulting Providers: Walt Banerjee; Eliot Black Instructions Additional Instructions / Restrictions: Follow-up with Dr. Black on June 16 to see about having her suture removed. Additionally as we discussed, I strongly recommend a follow-up with leather belt loop cutter about having her IUD removed. Being that it is hormone impregnated, those hormones can be a risk factor for further clots. Discharge Orders/Prescriptions Prescriptions: New acetaminophen 325 mg Tablet 500 mg PO Q6H PRN PRN (Reason: Pain 1-10 Or Fever >100.7) Qty: 0 0RF apixaban 5 mg tablet 5 mg PO BID Qty: 90 0RF Rx Instructions: 2 tablets (10mg) twice daily for 7 days, then 1 tablet (5mg) twice daily afterwards. Continued hydrochlorothiazide 12.5 mg tablet 12.5 mg PO DAILY ondansetron HCl 4 MG tablet 4 mg PO Q8H PRN (Reason: Nausea) sennosides-docusate sodium 1 EACH tablet 1 ea PO BID PRN (Reason: stool softner) aspirin 81 MG tablet,chewable 81 mg PO DAILY ergocalciferol (vitamin D2) 50,000 UNIT capsule 50,000 unit PO QWEEK Rx Instructions: every wednesday famotidine 20 MG tablet 20 mg PO BID atorvastatin 20 MG tablet 20 mg PO QHS potassium chloride 10 MEQ tablet extended release 1 tab PO DAILY Rx Instructions: WITH BREAKFAST mirabegron 50 MG tablet extended release 24 hr 50 mg PO DAILY acetaminophen 500 mg tablet 1,000 mg PO Q6H PRN (Reason: pain) bupropion HCl 150 mg tablet sustained-release 12 hr 150 mg PO BID cholecalciferol (vitamin D3) 50 mcg (2,000 unit) tablet 50 mcg PO DAILY cyanocobalamin (vitamin B-12) 5,000 mcg capsule 5,000 mcg PO DAILY dapagliflozin propanediol [Farxiga] 5 mg tablet 5 mg PO DAILY Rx Instructions: WITH BREAKFAST duloxetine 30 mg capsule,delayed release(DR/EC) 30 mg PO DAILY sumatriptan succinate 50 mg tablet 50 mg PO DAILY PRN (Reason: migraine headache) ferrous sulfate 325 mg (65 mg iron) tablet 325 mg PO BIDCM Patient Comments: PT STATES DR SAID NOT TO TAKE WHILE ON ANTIBITOTIC hydrocodone-homatropine [Hydromet] 5-1.5 mg/5 mL syrup 5 ml PO Q6H PRN (Reason: cough) Discontinued multivitamin 1 EACH tablet 1 ea PO DAILY Patient Comments: PT HASNT TAKEN RECENTLY doxycycline hyclate 100 mg capsule 100 mg PO BID Mirena 21 mcg/24hr (up to 8 yrs) 52 mg intrauterine device 1 device intrauterine Rx Instructions: ONLY ONE TIME Referrals / Follow Up: Radha Alcala MD [Primary Care Provider] - Within 2 Weeks Disposition Disposition (needs filled in before D/C Order can be placed): Home, Self Care Charges/Coding Visit Charges Inpatient E&M: 39096 Disch Hosp >30min
[2024-06-08 14:32] VITALS: BP 96/54; PULSE 66; RESP 18; TEMP 36.6; O2SAT 97
== END 2024-06-08 18:24 | disposition home or self-care (01) | DRG 169 ==
LOC: ED 11:37 → PCU 11:59
PROVIDERS: Surgery Trauma Surgery; Admitting Provider Internal Medicine; Emergency Provider Emergency Medicine; PCP Internal Medicine
DX: I82.413 Acute embolism and thrombosis of femoral vein, bilateral (principal); I82.220 Acute embolism and thrombosis of inferior vena cava; I82.423 Acute embolism and thrombosis of iliac vein, bilateral; E11.9 Type 2 diabetes mellitus without complications; E66.01 Morbid (severe) obesity due to excess calories; I10 Essential (primary) hypertension; Z95.828 Presence of other vascular implants and grafts; I82.451 Acute embolism and thrombosis of right peroneal vein; E78.5 Hyperlipidemia, unspecified; I25.10 Atherosclerotic heart disease of native coronary artery without angina pectoris; M17.0 Bilateral primary osteoarthritis of knee; Z68.41 Body mass index [BMI] 40.0-44.9, adult; I82.812 Embolism and thrombosis of superficial veins of left lower extremity; Z79.84 Long term (current) use of oral hypoglycemic drugs; Z86.718 Personal history of other venous thrombosis and embolism; Z98.0 Intestinal bypass and anastomosis status; Z79.02 Long term (current) use of antithrombotics/antiplatelets; Z79.899 Other long term (current) drug therapy; Z79.82 Long term (current) use of aspirin; Z86.0100 Personal history of colon polyps, unspecified; Z97.5 Presence of (intrauterine) contraceptive device
CPT/HCPCS: 36005; 36010; 36415; 37187; 37248; 37249; 37252; 37253; 71046; 71275; 74175; 75822; 75825; 76937; 80048; 80053; 82962; 83605; 83735; 83880; 84484; 85014; 85018; 85025; 85347; 85610; 85730; 93005; 93306; 93971; 94668; 97110; 97162; 97166; 97530; 97535; 97802; 97803; 99152; 99153; 99285; C1753; C1769; C1887; C1894; Q9967; A4216; C1757; J2405

== ENCOUNTER → 2024-07-26 | Outpatient (CLI) | payer MEDICAID, SELFPAY ==
--- NOTE | 2024-07-26 08:00 | VDLE_ITS ---
Reason For Study Reason For Study: Bilateral leg swelling RIGHT LEFT GSV is normal. GSV is normal. Acute deep vein thrombosis is noted in the right CFV, SFJ is partially compressible. FV and PopV. CFV is compressible, spontaneous, phasic, competent, CFV is partially NONCOMPRESSIBLE with venous flow and demonstrates normal augmentation. noted. FV is compressible, spontaneous, phasic, competent FV is NONCOMPRESSIBLE throghout, no venous flow and demonstrates normal augmentation. noted. POP V is compressible, spontaneous, phasic, competent PopV is partially NONCOMPRESSIBLE with venous flow and demonstrates normal augmentation. noted. Vessel is INCOMPETENT for greater than 1 T/P Trunk is compressible. second. PTV is compressible. PTV is partially compressible. LT PerV is compressible. PeroV is compressible. Gastroc V and Soleus V are compressible. Procedure This is a venous duplex using B-mode, color flow and spectral Doppler. Exam performed in department. Compared to 06/04/2024. A preliminary report was called and/or faxed to [facility]. VL/Venous Duplex US - Raj Extrem Interpretation Summary Acute deep vein thrombosis noted in the right common femoral vein, femoral vein , popliteal vein. Deep veins of the left lower extremity are patent and compressible segmentally. There is no evidence of left lower extremity deep vein thrombosis. The bilateral great saphenous veins appear philippe nt and compressible segmentally. Ordering Physician: Gianna Blackwell Referring Physician: Radha Alcala Performed By: Mary Mitchell RVT
== END | disposition home or self-care (01) ==
LOC: CVS 08:00
PROVIDERS: PCP Internal Medicine; Referring Provider Physician Assistant; Visit Provider Physician Assistant
DX: I89.0 Lymphedema, not elsewhere classified (principal); I82.509 Chronic embolism and thrombosis of unspecified deep veins of unspecified lower extremity; Z95.828 Presence of other vascular implants and grafts; I87.2 Venous insufficiency (chronic) (peripheral)
CPT/HCPCS: 93970

== ENCOUNTER → 2024-12-06 | Outpatient (CLI) | payer MEDICAID, SELFPAY ==
--- NOTE | 2024-12-06 09:54 | VDLE_ITS ---
Reason For Study Reason For Study: Bilateral leg swelling RIGHT LEFT GSV is normal. GSV is normal. CFV is partially compressible, normal venous flow SFJ is partially compressible. noted. CFV is compressible, spontaneous, phasic, competent, Acute deep vein thrombosis is noted in the FV prox. and demonstrates normal augmentation. It is NONCOMPRESSIBLE and dilated. FV is compressible, spontaneous, phasic, competent FV mid-distal is partially compressible with minimal and demonstrates normal augmentation. venous flow, nondilated. POP V is compressible, spontaneous, phasic, competent PopV is partially compressible. Vessel is INCOMPETENT and demonstrates normal augmentation. for greater than 1 second. T/P Trunk is compressible. PTV is partially compressible. PTV is compressible. PeroV is compressible. LT PerV is compressible. Procedure This is a venous duplex using B-mode, color flow and spectral Doppler. Exam performed in department. A preliminary report was called and/or faxed to [facility]. VL/Venous Duplex US - Raj Extrem Interpretation Summary Acute deep vein thrombosis is noted in the right femoral vein. Deep veins of the left lower extremity are patent and compressible segmentally. There is no evidence of left lower extremity deep vein thrombosis. The bilateral great saphenous veins appear philippe nt and compressible segmentally. Ordering Physician: Gianna Blackwell Referring Physician: Radha Alcala Performed By: Mary Mitchell RVT and Student
== END | disposition home or self-care (01) ==
LOC: CVS 09:52
PROVIDERS: PCP Internal Medicine; Referring Provider Physician Assistant; Visit Provider Physician Assistant
DX: I89.0 Lymphedema, not elsewhere classified (principal); I82.509 Chronic embolism and thrombosis of unspecified deep veins of unspecified lower extremity; I87.2 Venous insufficiency (chronic) (peripheral); Z95.828 Presence of other vascular implants and grafts
CPT/HCPCS: 93970

== ENCOUNTER 2024-12-13 17:42 | Emergency (ER) | payer MEDICAID, SELFPAY ==
[2024-12-13 17:43] VITALS: BP 159/68; PULSE 71; RESP 16; TEMP 35.6; O2SAT 97
--- NOTE | 2024-12-13 17:57 | CT_ITS ---
PROCEDURE: CT BRAIN/HEAD WITHOUT CONTRAST 12/13/2024 REASON FOR EXAM: TRAUMA, ELIQUIS TECHNIQUE: Procedure Code: CTBR Modality: CT Procedure: BRAIN/HEAD WITHOUT CONTRAST Coronal and Sagittal reconstruction series were provided. One or more dose reduction techniques were used (e.g., Automated exposure control, adjustment of the mA and/or kV according to patient size, use of iterative reconstruction technique. RADIATION DOSE SUMMARY: CTDlvol: 44.99 mGy DLP: 779.24 mGycm COMPARISON: 08/04/2018 FINDINGS: No acute intracranial hemorrhage, extra-axial collection, mass effect or evidence of acute infarct. Ventricles and subarachnoid spaces are normal in size. Orbital contents are unremarkable. Intact skull base and calvarium. Mucosal thickening in the floors of the maxillary sinuses. CT/Brain/Head without Contrast IMPRESSION: No acute intracranial abnormality. Reading Location: [id number]
--- NOTE | 2024-12-13 17:58 | EX.ED.UPPERE ---
HPI History of Present Illness Chief Complaint: Upper Extremity Injury Informant: patient and spouse/S.O. Narrative Narrative: Patient is a right hand dominant 64-year-old female with a history of DVT and PE presenting to the ED with left wrist pain and numbness in fingers following a fall. Patient is accompanied by her who is supplementing history. - Fell around 1600 today, tripping over a brick while in a flower bed, landing on her left arm. - Unsure of exact position of hand during fall. - Reports pain in the entire left wrist and limited ROM. - Associated numbness in a couple of fingers. - Denies pain in the elbow or shoulder. - Also hit her head during the fall, cracking a small piece of cement, resulting in a small bump on the left side of her head; denies pain, LOC, emesis, changes in vision, or headache. - Able to ambulate after the fall; reports hitting her left knee but denies significant pain or issues with walking. - Sustained a separate injury to her thumb yesterday when it was caught in a cedar chest, resulting in a cut that bled for a while but has since stopped; reports pain in the entire thumb. - Currently on Eliquis for blood clots in both legs and lung diagnosed in May. [facility] Medical History (Updated 12/13/24 @ 19:[address] Raymnod Catherine MD) DVT (deep venous thrombosis) Pulmonary embolism Iron deficiency anemia Chronic pain Septic arthritis of wrist, right Hypomagnesemia Hypokalemia Elevated LFTs Acute kidney injury Hypertension Hyperlipidemia Diabetes mellitus, type II Morbid obesity with BMI of 50.0-59.9, adult History of colon cancer Home Medications ?Medication ?Instructions ?Recorded ?Last Taken ?Type aspirin 81 mg chewable tablet 81 mg PO DAILY heart health 10/05/16 05/13/20 History ergocalciferol (vitamin D2) 1,250 50,000 unit PO QWEEK supplement 10/05/16 05/07/20 History mcg (50,000 unit) capsule ondansetron HCl 4 mg tablet 4 mg PO Q8H PRN Nausea 10/05/16 Unknown History sennosides 8.6 mg-docusate sodium 1 ea PO BID PRN stool softner 10/05/16 05/13/20 History 50 mg tablet hydrochlorothiazide 12.5 mg tablet 12.5 mg PO DAILY DAILY 03/22/17 06/03/24 History famotidine 20 mg tablet 20 mg PO BID stomach 05/03/20 06/03/24 History atorvastatin 20 mg tablet 20 mg PO QHS cholesterol 05/14/20 05/13/20 History mirabegron 50 mg tablet,extended 50 mg PO DAILY bladder 05/14/20 05/13/20 History release 24 hr potassium chloride 10 mEq 1 tab PO DAILY supplement 05/14/20 05/13/20 History tablet,extended release acetaminophen 500 mg tablet 1,000 mg PO Q6H PRN pain 06/04/24 Unknown History bupropion HCl 150 mg tablet,12 hr 150 mg PO BID DEPRESSION 06/04/24 Unknown History sustained-release cholecalciferol (vitamin D3) 50 50 mcg PO DAILY SUPPLEMENT 06/04/24 Unknown History mcg (2,000 unit) tablet cyanocobalamin (vitamin B-12) 5,000 mcg PO DAILY SUPPLEMENT 06/04/24 Unknown History 5,000 mcg capsule dapagliflozin propanediol 5 mg 5 mg PO DAILY BLOOD SUAGR 06/04/24 Unknown History tablet (Farxiga) duloxetine 30 mg capsule,delayed 30 mg PO DAILY DEPRESSION 06/04/24 Unknown History release ferrous sulfate 325 mg (65 mg 325 mg PO BIDCM STOMACH 06/04/24 Unknown History iron) tablet hydrocodone-homatropine 5 mg-1.5 5 ml PO Q6H PRN cough 06/04/24 06/04/24 History mg/5 mL oral solution (Hydromet) sumatriptan succinate 50 mg tablet 50 mg PO DAILY PRN migraine 06/04/24 Unknown History headache acetaminophen 325 mg tablet 500 mg (1.5385 x 325 mg) PO Q6H 06/08/24 Unknown Rx PRN PRN Pain 1-10 Or Fever >100.7 #0 tabs apixaban 5 mg tablet 5 mg PO BID #90 tabs 06/08/24 Unknown Rx Allergy/AdvReac Type Severity Reaction Status Date / Time adhesive tape Allergy Mild rash Verified 12/13/24 17:43 Family History Mother Diabetes CAD (coronary artery disease) Father Heart disease Diabetes Surgical History S/P insertion of IVC (inferior vena caval) filter S/P cholecystectomy S/P colonoscopy History of incisional hernia repair S/P colectomy S/P repair of ventral hernia Status post knee replacement Social History Smoking Status: Never smoker alcohol intake: never ROS ROS ED Constitutional Constitutional ED: Denies chills or fever(s) Eyes Eyes: Denies change in vision or diplopia ENT ENT ED: Denies ear pain, epistaxis, facial pain or rhinorrhea Cardiovascular Cardiovascular: Denies chest pain or palpitations Respiratory/Chest Respiratory/Chest: Denies cough or dyspnea Gastrointestinal Gastrointestinal: Denies abdominal pain, diarrhea, melena, nausea or vomiting Genitourinary Genitourinary ED: Denies dysuria or hematuria Musculoskeletal Musculoskeletal: Reports extremity pain; Denies back pain or neck pain Integumentary Denies abscess, Abrasions, laceration or rash Neurologic Neurologic: Reports paresthesias LUE (fingertips); Denies confusion, headache(s) or weakness EXAM Physical Exam Const Vital Signs: 12/13/24 17:43 12/13/24 17:53 Temperature 96.1 F L Temperature Source Temporal Pulse Rate 71 Respiratory Rate 16 Respiratory Effort Normal Non-Labored Respiratory Depth Normal Respiratory Pattern Normal Blood Pressure 159/68 H Blood Pressure Mean 98 Pulse Ox 97 Oxygen Delivery Method Room Air Room Air Positive well nourished and well developed General Appearance ED: well developed and NAD HEENT Reports TM's clear and nasal mucous membranes and turbinates normal HEENT Narrative: Small left posterior parietal scalp hematoma 1-2 cm, no crepitus or depression. No Hernandez sign, no raccoon eyes, no CSF otorhinorrhea, no hemotympanum. trauma and tenderness Face and Sinus: Negative for facial tenderness Tympanic Membrane ED: Yes TM's clear Eyes PERRL and EOMs intact bilaterally Visual Acuity: other Other Details: no entrapment or pain with extraocular movements Neck full ROM and supple General: Negative for tenderness Chest Wall inspection of chest normal and palpation of chest normal Chest: symmetrical chest wall rise; Negative for crepitus or tenderness Resp normal respiratory effort and clear to auscultation bilaterally Percussion: other equal BS bilat Cardio no murmurs Rate: regular rate Rhythm: regular rhythm GI normal to inspection, nondistended, normoactive bowel sounds, soft to palpation and non-tender Back/Spine normal ROM Cervical Spine: Negative for cervical spine tenderness Thoracic Spine / Upper Back: Negative for thoracic spinal tenderness Lumbar Spine / Lower Back: Negative for lumbar spinal tenderness Extremity normal to inspection Extremity Narrative: Left wrist with tenderness over distal radius and ulna, limited range of motion; left thumb with tenderness throughout; no tenderness at left elbow or shoulder, no deformities, very small partial-thickness laceration of the left thumb distal phalanx radial aspect of the fingertip next to the nail, no bleeding signs of infection or nail/nailbed injury/involvement. Able to ambulate without difficulty; able to bend and lift left knee without pain/limitation. General Extremety ED: Yes tenderness Neuro oriented x3, CN's II-XII intact bilaterally, moves all extremities, no focal motor deficits and no sensory deficits noted Bl[place]coe Coma Scale: document GCS findings Spontaneous Obeys Commands Oriented 15 Sensorium / Orientation: awake and alert Psych mental status grossly normal and thought process normal Skin no wounds Lesions: no lesions Rashes: no rashes MDM MDM MDM Narrative Medical decision making narrative: Assessment: The patient is a 64-year-old female with PMH of bilateral lower-extremity and pulmonary emboli on chronic Eliquis therapy presenting for left wrist pain and scalp hematoma after tripping on a rock and falling onto her outstretched hand earlier today. CT head is negative for fracture or intracranial bleed, making clinically significant intracranial injury unlikely despite anticoagulation. Left wrist radiographs reveal a nondisplaced distal radius fracture accounting for her wrist pain, while left hand films show no fracture, consistent with a soft-tissue contusion of the thumb. Overall picture is isolated nondisplaced distal radius fracture with associated thumb and scalp contusions, without intracranial pathology. Plan: - Applied short arm anterior?posterior orthoglass splint to left wrist; distal neurovascular status intact. - Administered Winston for ED analgesia; advised acetaminophen as needed at home. - Instructed patient to keep splint dry and intact until cast placement. - Advised prompt outpatient follow-up with Dr. Renae (orthopedics, [facility]). Diagnostics: - 3-view x-ray left wrist: nondisplaced distal radius fracture. Independently interpreted by Raymond gomez. - 3-view x-ray left hand: no acute fracture of thumb or other hand bones. Independently interpreted by Raymond gomez. - CT head: no skull fracture or intracranial hemorrhage. Independently interpreted by Raymond gomez; radiology concurs. Diagnoses: Nondisplaced fracture of distal end of left radius; Contusion of left thumb without damage to nail; Contusion of scalp; continuous churn buttermaker (current) use of anticoagulants Radiography Diagnostic Testing: Labs: Imaging: (Today) 3 view x-rays of the left wrist: Non-displaced distal radius fracture. Independently interpreted by Raymond gomez. 3 view x-ray of the left hand: Negative for acute fracture of the thumb or other bones. Independently interpreted by Raymond gomez. CT of the head: Negative for skull fracture or intracranial hemorrhage. Radiology in agreement. Independently interpreted by Raymond gomez. Procedures Upper Extremity Splints Upper Extremity Splint: Orthoglass (short arm AP fabricated orthoglass splint. The patient remained neurovascularly intact distally after placement and tolerated it well, with no complications.) Splint Fabrication: Fabricated Location: Left Discharge Plan Triage Chief Complaint: Upper Extremity Injury Other Complaint: Head Injury ED Provider: Raymond Catherine Dx/Rx/DC Orders Clinical Impression: Nondisplaced fracture of distal end of left radius, Contusion of left thumb without damage to nail, initial encounter, Contusion of scalp, Anticoagulated on apixaban, Fall from slip, trip, or stumble Instructions: Splint Care, Distal Radius Fx Prescriptions: No Action hydrochlorothiazide 12.5 mg tablet 12.5 mg PO DAILY ondansetron HCl 4 MG tablet 4 mg PO Q8H PRN (Reason: Nausea) sennosides-docusate sodium 1 EACH tablet 1 ea PO BID PRN (Reason: stool softner) aspirin 81 MG tablet,chewable 81 mg PO DAILY ergocalciferol (vitamin D2) 50,000 UNIT capsule 50,000 unit PO QWEEK Rx Instructions: every wednesday famotidine 20 MG tablet 20 mg PO BID atorvastatin 20 MG tablet 20 mg PO QHS potassium chloride 10 MEQ tablet extended release 1 tab PO DAILY Rx Instructions: WITH BREAKFAST mirabegron 50 MG tablet extended release 24 hr 50 mg PO DAILY acetaminophen 500 mg tablet 1,000 mg PO Q6H PRN (Reason: pain) bupropion HCl 150 mg tablet sustained-release 12 hr 150 mg PO BID cholecalciferol (vitamin D3) 50 mcg (2,000 unit) tablet 50 mcg PO DAILY cyanocobalamin (vitamin B-12) 5,000 mcg capsule 5,000 mcg PO DAILY dapagliflozin propanediol [Farxiga] 5 mg tablet 5 mg PO DAILY Rx Instructions: WITH BREAKFAST duloxetine 30 mg capsule,delayed release(DR/EC) 30 mg PO DAILY sumatriptan succinate 50 mg tablet 50 mg PO DAILY PRN (Reason: migraine headache) ferrous sulfate 325 mg (65 mg iron) tablet 325 mg PO BIDCM Patient Comments: PT STATES DR SAID NOT TO TAKE WHILE ON ANTIBITOTIC hydrocodone-homatropine [Hydromet] 5-1.5 mg/5 mL syrup 5 ml PO Q6H PRN (Reason: cough) acetaminophen 325 mg Tablet 500 mg PO Q6H PRN PRN (Reason: Pain 1-10 Or Fever >100.7) Qty: 0 0RF apixaban 5 mg tablet 5 mg PO BID Qty: 90 0RF Rx Instructions: 2 tablets (10mg) twice daily for 7 days, then 1 tablet (5mg) twice daily afterwards. Primary Care Provider: Radha Alcala Referrals: Raymond Renae MD [Non-Staff, Orthopedics] - As soon as possible Activity Restrictions/Additional Instructions: - Protect your left wrist splint from water; do not get it wet until it?s replaced with a waterproof cast. - For pain, take [id number] Tylenol as needed - Left wrist X-rays show a non-displaced distal radius fracture; left hand X-rays are negative for fracture. - Head CT scan is normal with no skull fracture or internal bleeding. - Contact Dr. Renae?s office at [facility] to schedule your orthopedic follow-up appointment as soon as possible. Print Language: Danish Disposition Disposition: Home, Self Care
--- NOTE | 2024-12-13 18:10 | RAD_ITS ---
PROCEDURE: LEFT HAND MIN 3 VIEWS; WRIST MIN 3 VIEWS 12/13/2024 REASON FOR EXAM: INJURY ATTN 1ST RAY; INJURY TECHNIQUE: Procedure Code: AKI; RADWR Modality: DX Procedure: HAND MIN 3 VIEWS; WRIST MIN 3 VIEWS Laterality: Left COMPARISON: None. FINDINGS: Acute nondisplaced impacted fracture of the distal left radial metaphysis, no definite intra-articular extension. No other acute fracture or dislocation appreciated. Carpal alignment is maintained. 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 Diffuse qualitative osteopenia. Mild soft tissue swelling about the wrist. RAD/Hand Min 3 Views IMPRESSION: Acute nondisplaced impacted fracture of the distal radial metaphysis. Reading Location: [id number]
--- NOTE | 2024-12-13 18:10 | RAD_ITS ---
PROCEDURE: LEFT HAND MIN 3 VIEWS; WRIST MIN 3 VIEWS 12/13/2024 REASON FOR EXAM: INJURY ATTN 1ST RAY; INJURY TECHNIQUE: Procedure Code: AKI; RADWR Modality: DX Procedure: HAND MIN 3 VIEWS; WRIST MIN 3 VIEWS Laterality: Left COMPARISON: None. FINDINGS: Acute nondisplaced impacted fracture of the distal left radial metaphysis, no definite intra-articular extension. No other acute fracture or dislocation appreciated. Carpal alignment is maintained. 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 Diffuse qualitative osteopenia. Mild soft tissue swelling about the wrist. RAD/Wrist min 3 Views IMPRESSION: Acute nondisplaced impacted fracture of the distal radial metaphysis. Reading Location: [id number]
[2024-12-13] MEDS: HYDROcodone Bitartrate/Apap 5/325 Tablet PO (18:59)
[2024-12-13 19:01] VITALS: BP 118/66; PULSE 64; RESP 16; TEMP 35.6; O2SAT 97
== END 2024-12-13 19:17 | disposition home or self-care (01) ==
PROVIDERS: Emergency Provider Emergency Medicine; PCP Internal Medicine; Visit Provider Emergency Medicine
DX: S52.502A Unspecified fracture of the lower end of left radius, initial encounter for closed fracture (principal); E11.9 Type 2 diabetes mellitus without complications; Z86.711 Personal history of pulmonary embolism; S00.03XA Contusion of scalp, initial encounter; Z79.01 Long term (current) use of anticoagulants; E78.5 Hyperlipidemia, unspecified; Z85.038 Personal history of other malignant neoplasm of large intestine; Z79.82 Long term (current) use of aspirin; Z79.899 Other long term (current) drug therapy; Z79.84 Long term (current) use of oral hypoglycemic drugs; Z90.49 Acquired absence of other specified parts of digestive tract; Z96.659 Presence of unspecified artificial knee joint; W01.0XXA Fall on same level from slipping, tripping and stumbling without subsequent striking against object, initial encounter; S60.012A Contusion of left thumb without damage to nail, initial encounter; I10 Essential (primary) hypertension
CPT/HCPCS: 70450; 73110; 73130; 99283